=== PATIENT | male | born 1935 | race Caucasian/White ===

== ENCOUNTER → 2016-09-18 11:22 | Outpatient (CLI) | payer MEDICARE, OTHER ==
[2016-01-22 06:22] VITALS: BMI 30.4
[~2016-09-18 11:22] MED LIST: ASPIRIN EC81 M1 PO; HYDROCODON-ACE1 EAC6 PO; LISINOPRIL10 MG PO; PROSCAR5 MG PO; SURFAK240 MG PO; ZOCOR20 MG PO
== END | disposition home or self-care (01) ==
LOC: D.US 11:22
DX: R60.0 Localized edema (principal); M79.662 Pain in left lower leg

== ENCOUNTER 2017-03-26 05:30 | Day surgery (SDC) | payer MEDICARE, OTHER ==
[2017-03-25 08:55] LABS: BASOPHILS 0.3 % (0-2); EOSINOPHILS 2.8 % (0-7); HEMATOCRIT 45.3 % (42.0-54.0); HEMOGLOBIN 15.2 g/dL (13.5-17.5); IMMATURE GRANULOCYTES 0.5 % (0-5); MCH 31.9 pg (26.0-34.0); MCHC 33.6 g/dL (31.0-37.0); MCV 95.2 fL (80.0-100.0); MEAN PLATELET VOLUME 11.1 fL (7.4-10.4); MONOCYTES 9.3 % (2-11); NEUTROPHILS 59.1 % (40-80); PLATELET COUNT 133 10x3/uL (130-400); RBC 4.76 10x6/uL (4.20-6.10); RDW 12.9 % (11.5-14.5); WBC 7.8 10x3/uL (4.8-10.8)
[2017-03-25 09:04] LABS: ANION GAP 11.9 mmol/L (8-16); CALCIUM 8.5 mg/dL (8.5-10.1); CARBON DIOXIDE 29.3 mmol/L (21.0-32.0); CREATININE - SERUM 1.2 mg/dL (0.6-1.3); POTASSIUM - SERUM 4.2 mmol/L (3.5-5.1)
[~2017-03-26] VITALS: Ht 177.8 cm; Wt 85.7 kg
[~2017-03-26 05:30] MED LIST changes: +ELAVIL25 MG PO
[2017-03-26 06:55] VITALS: BP 133/61; Ht 177.8 cm; Wt 85.7 kg
--- NOTE | 2017-03-26 15:14 | OP ---
PATIENT NAME: DACIA MA MEDICAL RECORD: [id number] :36 LOCATION:D.OPS ADMISSION DATE: SURGEON: ALEJANDRO DEAN MD DATE OF OPERATION: 03/26/2017 SURGEON: Alejandro Dean MD. ANESTHESIA: General anesthesia by Liam Valencia CRNA. PREOPERATIVE DIAGNOSEIS: Elevated PSA 9.2 and abnormal digital rectal examination. FINDINGS: A 24 gram prostate, some hypoechoic areas in the right mid prostate. PROCEDURES: Transrectal ultrasound and prostate biopsy. SPECIMENS: Prostate biopsy. ESTIMATED BLOOD LOSS: None. CLINICAL HISTORY: This is an 81-year-old male, who served in [employer]. During the Tet Offensive, he was exposed to Agent Oktaha. Now, he has an elevated PSA of 9.2. On digital rectal examination, there is hard nodule in the right mid prostate. He wants to know if he has prostate cancer. HE IS ALLERGIC TO PENICILLIN. He has been taking Bactrim prophylaxis at home and he took a Fleet enema last night. 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 DESCRIPTION OF PROCEDURE: The patient was given induction of general anesthesia. He was placed in the dorsal lithotomy position. We noticed that he has quite significant candidal skin infection in the perineum and buttock areas. The rectal probe was placed and measurements of the prostate were obtained. Some small hypoechoic areas were seen on the right mid lobe, corresponding to the palpable nodule. The prostate was divided into 6 sectors. We obtained sextant biopsies. These are the right and left apical, mid and base sectors. In each sector, we took at least 3 cores of tissue. This was using a biopsy gun with 21-gauge needle. Once all the cores were obtained, the patient was awakened and brought to the recovery room. I will see the patient next week to review the pathology results with him. TRANSINT:[id number] Voice Confirmation ID: [id number] DOCUMENT ID: [id number] ALEJANDRO DEAN MD at 1514 CC: [id number] DICTATION DATE: 03/26/17915 TAIL EDGER: 03/26/17 1206 [facility] 03/26/17 [place] [address]
== END 2017-03-26 11:00 | disposition home or self-care (01) ==
LOC: D.OPS 05:30 → D.PAN 07:30 → D.OPS 08:00 → D.PAN 08:00 → D.OPS 11:00
PROVIDERS: Anesthesiology
DX: C61 Malignant neoplasm of prostate (principal); B37.9 Candidiasis, unspecified; Z88.0 Allergy status to penicillin; Z01.812 Encounter for preprocedural laboratory examination

== ENCOUNTER → 2017-04-20 10:07 | Outpatient (CLI) | payer MEDICARE, OTHER | END | disposition home or self-care (01) | LOC: D.NM 10:07 | DX: C61 Malignant neoplasm of prostate (principal) ==

== ENCOUNTER 2017-05-12 05:28 | Day surgery (SDC) | payer MEDICARE, OTHER ==
[2017-05-11 11:57] LABS: BASOPHILS 0.3 % (0-2); HEMOGLOBIN 14.3 g/dL (13.5-17.5); IMMATURE GRANULOCYTES 0.2 % (0-5); LYMPHOCYTES 32.7 % (15-50); MEAN PLATELET VOLUME 11.1 fL (7.4-10.4); MONOCYTES 9.6 % (2-11); NEUTROPHILS 54.2 % (40-80); PLATELET COUNT 111 10x3/uL (130-400); RBC 4.47 10x6/uL (4.20-6.10); RDW 12.6 % (11.5-14.5); WBC 6.6 10x3/uL (4.8-10.8)
[2017-05-11 12:09] LABS: APTT 29.2 SECONDS (22.8-39.4); CALC OSMOLALITY 281 mosm/kg (275-300); CALCIUM 8.5 mg/dL (8.5-10.1); CHLORIDE - SERUM 104 mmol/L (98-107); CREATININE - SERUM 0.9 mg/dL (0.6-1.3); GLUCOSE 115 mg/dL (74-106); INR 1.04 (0.85-1.17); POTASSIUM - SERUM 4.2 mmol/L (3.5-5.1); PROTIME 13.5 SECONDS (11.6-15.0); SODIUM 141 mmol/L (136-145); UREA NITROGEN 12 mg/dL (7-18); eGFR NON AFRICAN AMERICAN 86 mL/min (90-120)
[2017-05-12 06:26] VITALS: BP 127/75; BMI 26.4
[2017-05-12] MEDS ORDERED: ULTRAM50 MG PO (09:48)
--- NOTE | 2017-05-12 14:03 | OP ---
PATIENT NAME: DACIA MA MEDICAL RECORD: [id number] :36 LOCATION:JEFF ADMISSION DATE: SURGEON: BOBBY AVENDANO MD DATE OF OPERATION: 05/12/2017 REFERRING PHYSICIAN: Noe Hdez MD PREOPERATIVE DIAGNOSIS: Initial reducible right indirect inguinal hernia without obstruction or gangrene. POSTOPERATIVE DIAGNOSIS: Initial reducible right indirect inguinal hernia without obstruction or gangrene. OPERATION PERFORMED: Anterior repair utilizing Bard polypropylene plug and patch, light. SURGEON: Bobby Avendano MD ANESTHESIA: General with LMA per ADMINISTRATOR OF HOME HEALTH. PREOPERATIVE NOTE: Mr. Ma is a very nice 81-year-old white male patient, who has a highly symptomatic reducible right inguinal hernia on physical examination, most likely an indirect hernia. He is brought to the operating room for a semi-elective repair. DESCRIPTION OF PROCEDURE: Under anesthesia in supine position, the patient was prepped and draped in sterile manner. An oblique incision was made and carried down to the external oblique aponeurosis, which was opened parallel to its fibers through the external inguinal ring. The spermatic cord was mobilized. The floor of the canal was noted to be intact. There was a large indirect inguinal hernia sac with a small cord lipoma. The lipoma was excised and discarded, and the hernia sac dissected from the cord. It was ligated high with a 2-0 Vicryl and amputated. The sac was sent for histopathology and the stump of the sac pushed back into the preperitoneal space. I then inserted a size extra-large Marlex polypropylene mesh plug. This was a light mesh. It was opened up in the preperitoneal space and sutured to the margins of the internal ring with interrupted 3-0 Vicryl. The wound was irrigated with gentamicin solution and infiltrated with 30 cc of 0.25% Marcaine without epinephrine. The mesh patch was then applied to the floor of the canal. It was sutured with interrupted 3-0 Vicryl. It was split to accommodate the cord and created a new internal ring. The cord was replaced in an anatomical position, and the external oblique aponeurosis approximated over it with interrupted 3-0 Vicryl. The Srikanth fascia was closed with interrupted inverted 3-0 Vicryl, and the skin closed with running intracuticular 4-0 Monocryl and Dermabond glue. The wound was then dressed with Maxorb Ag, Tegaderm, and Cavilon skin prep. An ice pack was applied. The patient was awakened and taken to the recovery room. Blood loss was essentially nil during the procedure. All sponges, instruments, and needles were accounted for. No drain was used. The surgical specimen consisted of the hernia sac. Mr. Ma will be discharged home today. If he is unable to void before discharge, he will have a bladder scan and possibly a Sharma catheter insertion. If so, we will plan to send him home with a Sharma and bring him back either to Dr. Hdez's office tomorrow or to my office on for catheter removal. OPERATIVE REPORT [id number] DACIA MA He is given a prescription for Flomax 0.4 mg 1 p.o. daily for 2 weeks and also a prescription for tramadol 50 mg, #20. He can take 1 p.o. every 4 hours p.r.n. pain. He is to resume his usual diet and home medications and is to resume activities as tolerated without arbitrary restrictions. He is encouraged to shower daily and is to wash over the waterproof plastic dressing with soap and water as desired. I will plan to remove that dressing when he returns to see me in my office for his postoperative visit next week. TRANSINT:[id number] Voice Confirmation ID: [id number] DOCUMENT ID: [id number] BOBBY AVENDANO MD at 1403 CC: NOE HDEZ MD [id number] DICTATION DATE: 05/12/17 1013 CLICKING MACHINE OPERATOR: 05/12/17 1047 [facility] [address] [id number]
--- NOTE | 2017-05-12 17:03 | NUR ---
1059 1 ULTRAM 50MG PO FOR PAIN. Willard BOWEN R.N.
--- NOTE | 2017-05-12 17:06 | NUR ---
1200 DRESSED. GIVEN DISCHARGE INFORMATION INCLUDING: RX: ULTRAM 50MG, MED REC.,[facility] OUTPATIENT D/C INSTRUCTIONS, & RTC APPT WITH DR. AVENDANO. PT VOICED UNDERSTANDING. WAITING FOR TRANSPORTATION. Willard BOWEN R.N. [id number] TRANSPORTATION, KAVITHA SANCHEZ, HERE. TO PRIVATE CAR PER [facility] BY Lawrence EMERY PASTER HAT LINING. Willard BOWEN R.N..
== END 2017-05-12 12:35 | disposition home or self-care (01) ==
LOC: D.OPS 05:28 → D.PAN 08:00 → D.OPS 08:00
PROVIDERS: Surgery
DX: K40.90 Unilateral inguinal hernia, without obstruction or gangrene, not specified as recurrent (principal); I10 Essential (primary) hypertension; I49.9 Cardiac arrhythmia, unspecified; Z01.812 Encounter for preprocedural laboratory examination

== ENCOUNTER 2017-05-27 05:30 | Inpatient (IN) | payer MEDICARE, OTHER ==
[2017-05-26 11:23] LABS: BASOPHILS 0.3 % (0-2); EOSINOPHILS 2.9 % (0-7); HEMATOCRIT 41.1 % (42.0-54.0); HEMOGLOBIN 13.7 g/dL (13.5-17.5); IMMATURE GRANULOCYTES 0.3 % (0-5); LYMPHOCYTES 28.7 % (15-50); MCH 31.8 pg (26.0-34.0); MCHC 33.3 g/dL (31.0-37.0); MCV 95.4 fL (80.0-100.0); MEAN PLATELET VOLUME 10.6 fL (7.4-10.4); MONOCYTES 6.5 % (2-11); NEUTROPHILS 61.3 % (40-80); PLATELET COUNT 129 10x3/uL (130-400); RBC 4.31 10x6/uL (4.20-6.10); RDW 12.4 % (11.5-14.5); WBC 6.6 10x3/uL (4.8-10.8)
[2017-05-26 11:33] LABS: CALC OSMOLALITY 281 mosm/kg (275-300); CALCIUM 8.5 mg/dL (8.5-10.1); CARBON DIOXIDE 29.6 mmol/L (21.0-32.0); CHLORIDE - SERUM 106 mmol/L (98-107); CREATININE - SERUM 0.9 mg/dL (0.6-1.3); GLUCOSE 102 mg/dL (74-106); POTASSIUM - SERUM 4.2 mmol/L (3.5-5.1); SODIUM 142 mmol/L (136-145); UREA NITROGEN 11 mg/dL (7-18); eGFR NON AFRICAN AMERICAN 86 mL/min (90-120)
[2017-05-26 11:34] LABS: APTT 28.7 SECONDS (22.8-39.4); INR 1.07 (0.85-1.17); PROTIME 13.8 SECONDS (11.6-15.0)
[2017-05-27] VITALS (14 sets, daily range): BP systolic 97–147; BP diastolic 35–68; BMI 26.4; BMI 26.6
[~2017-05-27 05:30] MED LIST changes: +ULTRAM50 MG PO
[2017-05-27 10:43] LABS: BASOPHILS 0.3 % (0-2); EOSINOPHILS 1.8 % (0-7); IMMATURE GRANULOCYTES 0.1 % (0-5); MCH 32.2 pg (26.0-34.0); MCHC 34.1 g/dL (31.0-37.0); MCV 94.6 fL (80.0-100.0); MEAN PLATELET VOLUME 10.3 fL (7.4-10.4); MONOCYTES 8.1 % (2-11); NEUTROPHILS 61.7 % (40-80); PLATELET COUNT 124 10x3/uL (130-400); RDW 12.4 % (11.5-14.5); WBC 6.8 10x3/uL (4.8-10.8)
[2017-05-27 10:45] LABS: HEMATOCRIT 31.7 % (42.0-54.0); HEMOGLOBIN 10.8 g/dL (13.5-17.5); RBC 3.35 10x6/uL (4.20-6.10)
--- NOTE | 2017-05-27 14:08 | NUR ---
CONSULTED DR LEVI REGARDING DECREASED BLOOD PRESSURE. GIVEN ORDERS TO DRAW A STAT HEMOGLOBIN AND HEMOTOCRIT. ORDER PLACED. LAB CALLED. GIVEN VERBAL ORDERS TO GIVE HESPAN 500ML BOLUS. WILL CONTINUE TO MONITOR.
[2017-05-27 14:15] LABS: HEMATOCRIT 33.5 % (42.0-54.0); HEMOGLOBIN 11.1 g/dL (13.5-17.5)
--- NOTE | 2017-05-27 17:01 | NUR ---
1336 ADMITTED FROMR RECOVERY ROOM AWAKE AND ALERT SKIN WARM AND DRY. BILATERAL LUNG SOUNDS CLEAR ABD DRESSING DRY AND INTACT. LÁZARO DRAIN INTACT COMPRESSED BULB WITH DARK RED DRAINAGE. MARTINEZ PATENT WITH DARK RED DRAINAGE. DENIES ANY PAIN. FEET ARE NUMB CAN BARREL FEEL TOUCH UP TO MID ABD. RESP DEEP AND REGULAR. EPIDURAL INFUSING AT CONTINOUS RATE OF 6CC HOUR WITH 330 ML IN CONTAINER. DRESSING DRY AND INTACT. FEET AND LEGS WARM TO TOUCH. NAPPING WELL . ROCKY LEFT RADIAL DRESSING DRY AND INTACT NO SWELLING OR DRAINAGE. GOOD WAVE FORM ZEROED AND FLUSHED.
--- NOTE | 2017-05-27 18:44 | NUR ---
DRESSING DRY AND INTACT. PIV LEFT ARM DC'D. LR AT 50 ML HOUR INFUSING IN RIJ CENTRAL LINE. ROCKY DRESSING DRY AND INTACT. GOOD WAVE FORM. CLEAR LIQUID TRAY SERVED AT 50% MARTINEZ CATH DRAINAGE DARK RED
--- NOTE | 2017-05-27 19:30 | NUR ---
PT AOX4. RESPIRATIONS EVEN AND UNLABORED. SPO2 96 ON 3L O2 VIA NC. LUNG SOUNDS CLEAR. S1S2 HEARD, PERIPHERAL PULSES PRESENT. ROCKY TO LEFT RADIAL, EXTREMITIY PINK AND WARM. HYPOACTIVE BOWEL SOUNDS IN ALL QUADRANTS. DRSG TO ABDOMEN CDI, LÁZARO DRAIN TO LEFT ABD INTACT WITH BLOODY DRAINAGE PRESENT. EPIDURAL INTACT, NO C/O PAIN AT THIS TIME. PT REPOSITIONED FOR COMFORT. VSS, DENIES NEEDS. CALL LIGHT WITHIN PT REACH. CPOC.
--- NOTE | 2017-05-27 21:40 | NUR ---
NO VISITORS AT THIS TIME. FRESH WATER TO BEDSIDE. VSS, DENIES NEEDS AT THIS TIME. CALL LIGHT WITHIN PT REACH. CPOC.
--- NOTE | 2017-05-27 23:40 | NUR ---
REASSESSMENT COMPLETE, SEE FLOWSHEET FOR ALL FINDINGS. NO ACUTE CHANGES AT THIS TIME. ABD DRSG REMAINS CLEAN AND INTACT. VSS, DENIES PAIN. CALL LIGHT WITHIN PT REACH. CPOC.
[2017-05-28] VITALS (19 sets, daily range): BP systolic 93–139; BP diastolic 29–65
--- NOTE | 2017-05-28 03:33 | NUR ---
REASSESSMENT COMPLETE, SEE FLOWSHEET FOR ALL FINDINGS. NO ACUTE CHANGES AT THIS TIME. VSS, DENIES PAIN. PT REPOSITIONED FOR COMFORT. CALL LIGHT AND BEDSIDE TABLE WITHIN PT REACH. CPOC.
--- NOTE | 2017-05-28 08:48 | NUR ---
AWAKE AND ALERT TURNED TO LEFT SIDE DRESSING DRY AND INTACT DENIES PAIN. ABLE TO MOVE TOES TODAY. STILL HAS SOME NUMBNESS IN LEGS AND FEET. ABD DRESSING DRY AND INTACT LÁZARO DRAIN INTACT BULB COMPRESSED. ROCKY LEFT RAIDAL GOOD WAVE FORM. RIJ TRIPLE LUMEN DRESSING DRY AND INTACT.
--- NOTE | 2017-05-28 09:07 | OP ---
PATIENT NAME: DACIA MA MEDICAL RECORD: [id number] :36 LOCATION:[facility] D.2307 ADMISSION DATE:05/27/17 SURGEON: NOLA DEAN MD DATE OF OPERATION: 05/27/2017 CO-SURGEONS: 1. Nola Dean MD 2. Nola Sanchez MD ANESTHESIA: General anesthesia with an epidural by Dr. Morin and Alcides Velasquez CRNA. OPERATIVE DIAGNOSES: Prostate cancer, PSA 9.2; Violetta's score 4+5 equals 9/10 in all cores. Clinical stage T2c N0 M0. Previous Agent Baraga exposure in [place]. PROCEDURE: Radical retropubic prostatectomy with pelvic lymph node dissection. FINDINGS: Lymph node frozen sections indicated no lymph node metastasis. SPECIMENS: Pelvic lymph nodes, left and right, prostate with the vas deferens and seminal vesicles attached. ESTIMATED BLOOD LOSS: 1850 mL. Two units of packed red blood cells transfused during surgery. CLINICAL HISTORY: This is an 81-year-old man who was referred with an elevated PSA of 9.2. He had served in [employer] with the [employer] and he was exposed to Agent Baraga. He was very worried about the possibility of having cancer. He did have a prostate biopsy performed. All cores were positive for very high-grade prostate cancer, Kennebec score being 4+5. He had a metastatic workup including a chest CT, bone scan and abdominal and pelvic CT scan. These are normal except for some small left lung nodules, which we will continue to observe. 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 Otherwise, he has hypertension and elevated cholesterol, but no history of diabetes, myocardial infarction, stroke, or DVT. He has erectile dysfunction and he is not sexually active. He has good urinary continence. After discussing the options with him including observation, versus radical prostatectomy, versus radiation, he elected to have an open radical prostatectomy. Risks of the procedure were explained to him extensively in the clinic. These include blood loss, impotence, urinary incontinence, possible positive PSA elevation persisting after surgery if margins are positive. There is also the chance that he may have positive pelvic lymph nodes given his high Kennebec score and if the lymph nodes were positive, we would not continue with the surgery. I have arranged for frozen sections to be obtained in the operating room on his pelvic lymph nodes to ascertain this. He understood the risks and he wished to proceed. We had him cross matched for 2 units of packed red blood cells prior to the surgery. Also, in order to help with postoperative pain control, anesthesia is providing him with an epidural. They have also inserted central lines once he was asleep. DESCRIPTION OF PROCEDURE: The patient was given induction of general anesthetic in supine position. Central lines and epidural were given to the patient by anesthesia. He was prepped and draped. An 8 cm incision was marked out, going OPERATIVE REPORT [id number] KEYS,DACIA FLORES cranially from the symphysis pubis in the midline of the abdomen. Incision was made using a #10 blade. We went down through the midline of the rectus fascia with the Bovie. We then bluntly dissected the transversalis fascia with the fingers and entered the space of Retzius. We then put our Bookwalter retractor in, using moistened lap sponges to pad our retractor blades. A bladder retraction blade was also used to hold the bladder back. The patient had a 16-Saudi Arabian Sharma catheter inserted with 20 cc in the balloon. This was used to hold the bladder out of the way. We first performed a pelvic lymph node dissection. The margins of the dissection are anteriorly the external iliac vein and posteriorly the obturator nerve. Distally, it was the circumflex iliac vein and proximally it was the bifurcation of the common iliac into the external and internal iliac veins. Within these borders, we found some rather large lymph nodes. These were bluntly dissected using Macanese forceps and the [email or web address] suction tip. As we came across the lymphatic vessels, these were clipped and then divided with Metzenbaum scissors. We initially sent the right pelvic lymph nodes first to pathology for frozen section. They reported 3 nodes were found and all nodes were negative for cancer of the prostate. We performed the same procedure on the left side, and on the left side one node was found and it was negative for cancer. This allowed us to proceed with the radical prostatectomy. We swept away the pelvic fat over the endopelvic fascia lateral to the prostate. This was incised using the Bovie to allow us to enter the space containing the apex of the prostate. We also used the Bovie to extensively burn away the flat on the anterior surface of the prostate in order to allow exposure of the dorsal vein complex. A back bleeding suture of 0 Vicryl was placed as a [id number]-[id number]-meqkw at the base of the prostate, near the bladder neck, on the dorsal surface. This was to prevent bleeding from the bladder vessels along the dorsal venous complex. The puboprostatic ligaments were identified. We used Metzenbaum scissors to divide the puboprostatic ligaments with the scissors blades hugging the undersurface of the pubic bone. This allowed us to free the dorsal venous complex from the pubic undersurface. At this point, we started to get some extensive venous bleeding. A Irene clamp was placed in the plane between the dorsal venous complex and the anterior surface of the urethra. A 0 silk tie was placed here. This procedure was repeated again to put two 0 silk ties around the dorsal venous complex. We also placed a [id number]-up-xssjr 0 silk suture through the dorsal venous complex to stop most of the venous bleeding. Again, the dorsal venous bleeding accounted for most of the bleeding and even at this point we had an H&H performed and the hemoglobin had dropped from preoperative level of 13.7 to 10.8. Since we had the blood available, I suggested that anesthesia to go ahead and give him the 2 units of packed red blood cells. The reason for this decision is that I could not foresee how much further blood we could lose at that point. Actually, once we got our sutures and ties in the dorsal venous complex, the bleeding did diminish significantly. The Irene clamp was then placed again in the plane between the dorsal venous complex and the anterior surface of the urethra. A 15 blade was used to divide the dorsal venous complex. We could then see the apex of the prostate and the attachment of the urethra. The Marshall clamp was then used to define the plane between the posterior surface of the urethra and the anterior surface of the rectum. This plane was entered in through at the Irene clamp and a quarter inch Mariano drain was used to define the plane of the urethra. A 15 blade was used to incise the urethra very close to the apex of the prostate, but taking care not to encroach onto the prostate. Once the anterior and lateral palacios of the urethra had been divided, we were able to place a Antoinette clamp on the Sharma OPERATIVE REPORT [id number] ANILDACIACANELO matt. The distal portion of the Sharma catheter, distal to the urethral meatus was cut off. The Sharma catheter could then be drawn through and used for traction of the prostate. The rectourethralis muscle was divided using a Metzenbaum scissors. The lateral pedicles were isolated using a right angle clamp and then we would the clip the pedicle and divide on the prostatic side with scissors. In this way, we had the prostate isolated. Finally, an incision was made transversely across Denonvillier's fascia and we were able to identify the vas deferens medially and the seminal vehicles laterally in this plane. We isolated the vas deferens with the right angle clamp and placed a clip on it proximally. The vas was then divided for the vasectomy. We also isolated the seminal vesicles down to the apex where the arterial supply was encountered. The apex of the seminal vesicle was clipped and then the seminal vesicle was divided at this point. Finally, this left the bladder neck in isolation. Using a Bovie and hugging the bladder neck very close to the prostate, but not encroaching upon the prostate, we tried to perform a bladder neck sparing dissection. Once we had completely removed the prostate from a bladder neck, we were able to send the prostate off of the specimen to pathology in formalin. We carefully searched for and identified the ureteric orifices. They were uninjured. We could identify a jet of urine coming out of each ureteric orifice. We then performed a tennis racquet reduction of the bladder neck opening. Starting from posteriorly using a 2-0 Vicryl, we used a running seromuscular suture to reduce the bladder neck down to 1 cm in diameter. The bladder mucosa was everted over the cut edge of the bladder neck and this was performed using simple interrupted 4-0 Vicryl. At this point, we could place a sound into the penis and in the pelvis we could identify the urethral stump. We placed 5 anastomotic sutures. These are of 2-0 Monocryl. They were placed in the 5 and 7 o'clock positions posteriorly and the 2 and 10 o'clock positions anteriorly and finally at the 12 o'clock position anteriorly. All sutures were placed so that they went outside into the urethral lumen and inside out from the bladder to the outside of the bladder. Each of these sutures was marked with a rubber shod instruments, so that we could identify their positions. A 22-Saudi Arabian silicone Sharma catheter was then inserted into the penis and into the bladder. The balloon was inflated with 15 mL of sterile water. We were then able to remove the bladder blade on the Bookwalter retractor. The bladder was then allowed to come down to the urethral stump. The slack was taken of the sutures and we tied the anastomotic sutures down starting from the most anterior one which is the 12 o'clock suture, and working our way to the most posterior ones on each side. Once the sutures were tied down, we did irrigate the Sharma catheter and we noted no leakage of irrigation fluid from the anastomosis. Two weeks ago, the patient had a right inguinal hernia repair by Dr. Pretty. Therefore, we had to place a Feng-Flowers drain through a left lower quadrant stab incision. A #10 flat Feng-Flowers drain was drawn out through the left lower quadrant. We cut the inner part of the drain to make it shorter. It was placed close to, but not at the level of the vesical-urethral anastomosis. A #2 nylon was used as a drain stitch. We then had the sponge and instrument counts, which were correct. The rectus fascia was reapproximated using running looped 0 PDS. The skin was then closed with miranda. Dressings of Telfa and 4 x 4 gauze were placed on the abdominal incision. A drain dressing was applied around the Feng-Flowers drain. The Sharma catheter was taped to the leg. The patient was awakened and brought to the recovery room. I will keep him in the intensive care unit at least for 1 night to monitor his fluid levels. OPERATIVE REPORT [id number] DACIA MA TRANSINT:[id number] Voice Confirmation ID: [id number] DOCUMENT ID: [id number] NOLA DEAN MD at 0907 CC: [id number] DICTATION DATE: 05/27/17 1302 PHYSICIAN PRACTICE ADMINISTRATOR: 05/27/17 1737 ADM IN [facility] [address] [place] [address]
--- NOTE | 2017-05-28 15:22 | NUR ---
ROCKY WALKER'Seun PRESSURE HELD FOR 5 MIN. NO BLEEDING OR DISCOLORATION NOTED AT SITE. PATIENT TOLERATED WELL. CVP LINE REMOVED. RIJ TRIPLE LUMEN SALINE LOCKED. MARTINEZ DRAINING LIGHT PINK URINE. MONITOR SR. DR. DEAN HERE ORDERS FOR REGULAR DIET AND CAN TRANSFER TO FLOOR. EPIDURAL DRESSING DRY AND INTACT DENIES ANY PAIN. CAN FEEL SCD ON LOWER LEGS. MOVES TOES AND FEET WELL. STILL HAS SOME NUMBNESS AND TINGLING IN LEGS. COMPLETE BED BATH GIVEN WITH LINE CHANGE. PATIENT CALLED INFORMED HER OF TRANFERING.
[2017-05-28 15:36] LABS: BASOPHILS 0.2 % (0-2); EOSINOPHILS 0 % (0-7); HEMATOCRIT 31.9 % (42.0-54.0); HEMOGLOBIN 10.4 g/dL (13.5-17.5); IMMATURE GRANULOCYTES 0.1 % (0-5); LYMPHOCYTES 16.4 % (15-50); MCH 30.7 pg (26.0-34.0); MCHC 32.6 g/dL (31.0-37.0); MCV 94.1 fL (80.0-100.0); MEAN PLATELET VOLUME 10.9 fL (7.4-10.4); MONOCYTES 11.7 % (2-11); NEUTROPHILS 71.6 % (40-80); PLATELET COUNT 103 10x3/uL (130-400); RBC 3.39 10x6/uL (4.20-6.10); RDW 14.5 % (11.5-14.5); WBC 8.4 10x3/uL (4.8-10.8)
[2017-05-28 16:00] LABS: CALC OSMOLALITY 277 mosm/kg (275-300); CALCIUM 7.3 mg/dL (8.5-10.1); CARBON DIOXIDE 28.3 mmol/L (21.0-32.0); CHLORIDE - SERUM 106 mmol/L (98-107); CREATININE - SERUM 0.9 mg/dL (0.6-1.3); GLUCOSE 83 mg/dL (74-106); POTASSIUM - SERUM 3.8 mmol/L (3.5-5.1); SODIUM 139 mmol/L (136-145); UREA NITROGEN 15 mg/dL (7-18); eGFR NON AFRICAN AMERICAN 86 mL/min (90-120)
--- NOTE | 2017-05-28 17:15 | NUR ---
REPORT CALLED TO STAR TO TRANSFER TO ROOM 2230 PER BED
--- NOTE | 2017-05-28 17:57 | NUR ---
RECEIVED TO ROOM 2230 FROM ICU VIA . ORIENTED TO ROOM AND CALL LIGHT SYSTEM. CALL LIGHT IN REACH. WILL CONTINUE WITH PLAN OF CARE.
--- NOTE | 2017-05-28 18:48 | NUR ---
STAT LOCK APPLIED TO MARTINEZ CATH ON LEFT LEG. DRSG TO ABDOMEN. SCDs TO BLE. CALL LIGHT IN REACH. WILL CONTINUE WITH PLAN OF CARE.
[2017-05-29] VITALS: BP 110/50
[2017-05-29 04:00] VITALS: BP 110/45
--- NOTE | 2017-05-29 05:00 | NUR ---
PATIENT IS AWAKE, ALERT AND ORIENTED X'S 4. RESPIRATIONS ARE EVEN AND UNLABORED ON 2L/MIN. MARTINEZ CARE COMPLETED USING MARTINEZ CARE WIPES. APPLIED A MILLY MAT ALARM TO PATIENT'S BED. ENCOURAGED PATIENT TO TURN, HE TURNED TO HIS RIGHT SIDE, POSITIONED HIM WITH A PILLOW BEHIND HIS BACK. MILLY MAT ALARM ON. BED IN LOWEST POSITION, CALL LIGHT IN REACH. BED RAILS UP X'S 2. PATIENT DENIES NEEDS.
[2017-05-29 08:50] VITALS: BP 110/48
--- NOTE | 2017-05-29 08:58 | NUR ---
REC'D IN BED AWAKE AND ALERT. RESP EVEN AND UNLABORED WITH NO DISTRESS NOTED OR VOICED. CAN EXPRESS NEEDS AND WANTS. C/O PAIN RATING 3/10 ON PAIN SCALE. ASSESSMENT COMPLETED. C/L IN REACH AT BEDSIDE.
--- NOTE | 2017-05-29 14:27 | NUR ---
Patient Name: DACIA MA Admission Status: Elective Accout number: [id number] Admission Date: 05-27-2017 : 1935 Admission Diagnosis: Attending: FANNY DEAN Current LOS: 2 Anticipated DC Date: 06-01-2017 Planned Disposition: Home Primary Insurance: MEDICARE A & B Discharge Planning Comments: CM MET WITH FAMILY AND PATIENT REGARDING D/C NEEDS AND PLANS. PATIENT LIVES AT HOME WITH HIS (TANO) AND THEIR GRANDDAUGHTER WILL DRIVE HIM HOME AT DISCHARGE. PATIENT STATED HE IS INDEPENDENT WITH HIS CARE AND HAS A WALKER, AND CANE AT HIS HOME. PATIENTS PCP IS DR. HDEZ AND PHARMACY IS [facility] AT THE [facility]. PATIENT IS REFUSING HOME HEALTH AT THIS TIME. CM WILL CONTINUE TO FOLLOW PATIENT WITH D/C NEEDS AND PLANS. PCP DR. KETTY DIAZ AT [facility]- [phone] DANYELL (GRANDDAUGHTER) [phone] TANO () [phone] Funeral Director/Embalmer: Aleida Obregon Is the patient Alert and Oriented? Yes 0 * How many steps to enter\exit or inside your home? 0 0 * PCP DR. HDEZ 0 * Pharmacy [facility] AT [facility] 0 * Preadmission Environment Home with Family 0 * ADLs Independent 0 * Equipment Cane Walker 0 * List name and contact numbers for known caregivers / representatives who currently or will assist patient after discharge: TANO [phone] () DANYELL (GRANDDAUGHTER) [phone] 0 * Community resources currently utilized None 0 * Additional services required to return to the preadmission environment? Yes 0 * Can the patient safely return to the preadmission environment? Yes 0 * Has this patient been hospitalized within the prior 30 days at any hospital? No 0 Grand Total: 0
[2017-05-29 16:45] VITALS: BP 121/54
--- NOTE | 2017-05-29 19:21 | NUR ---
PATIENT IS AWAKE, ALERT AND ORIENTED X'S 4. RESPIRATIONS ARE EVEN AND UNLABORED ON 2L/MIN VIA NASAL CANNULA. HOB 30 DEGREES. PATIENT IS LAYING ON HIS LEFT SIDE POSITIONED WITH A PILLOW. NO SIGNS OF DISTRESS NOTED. MILLY MAT ALARM ON. BED IN LOWEST POSITION, CALL LIGHT IN REACH. MARTINEZ CATHETER DRAINING TO GRAVITY.
[2017-05-29 20:00] VITALS: BP 109/52
--- NOTE | 2017-05-29 21:26 | NUR ---
TURNED PATIENT TO HIS RIGHT SIDE, POSITIONED WITH A PILLOW. PHYSICAL ASSESSMENT COMPLETED AT THIS TIME. REMOVED SCDS, ASSESSED SKIN, NO SKIN IMPAIRMENTS, REAPPLIED SCDS. BILATERAL LEGS ARE ELEVATED ON A PILLOW, HEELS BRIDGED.
--- NOTE | 2017-05-29 23:01 | NUR ---
UPON ENTERING ROOM, PATIENT RESTING QUIETLY WITH EYES CLOSED. NO SIGNS OF DISTRESS NOTED. OXYGEN VIA NASAL CANNULA AT 2L/MIN. WOKE PATIENT UP TO TURN. PATIENT TURNED FROM HIS RIGHT SIDE TO HIS LEFT SIDE. POSITIONED WITH A PILLOW. HE DENIES NEEDS AT THIS TIME. BED IN LOWEST POSITION, CALL LIGHT IN REACH.
[2017-05-30] VITALS: BP 116/53
[2017-05-30 04:00] VITALS: BP 118/55
--- NOTE | 2017-05-30 06:40 | NUR ---
AGRONOMY MANAGER COMPLETED MARTINEZ CARE USING MARTINEZ CARE WIPES
--- NOTE | 2017-05-30 07:30 | NUR ---
SITTING ON BEDSIDE, AT BEDSIDE, DENIES NEEDS, CALL LIGHT IN REACH, MILLY ALARM ON, WILL CONTINUE TO MONITOR
--- NOTE | 2017-05-30 07:35 | NUR ---
RESTING, NO DISTRESS NOTED, DENIES NEEDS, CALL LIGHT IN REACH, HOB 40 DEGREES, WILL CONTINUE TO MONITOR
--- NOTE | 2017-05-30 13:00 | NUR ---
EPIDURAL REMOVED BY DR SLOAN, PT DENIES NEEDS, BED LOWEST POSITION, CALL LIGHT IN REACH
[2017-05-30 13:06] LABS: BASOPHILS 0.2 % (0-2); EOSINOPHILS 1.7 % (0-7); HEMATOCRIT 31.9 % (42.0-54.0); HEMOGLOBIN 10.6 g/dL (13.5-17.5); IMMATURE GRANULOCYTES 0.4 % (0-5); LYMPHOCYTES 12.7 % (15-50); MCH 30.9 pg (26.0-34.0); MCHC 33.2 g/dL (31.0-37.0); MEAN PLATELET VOLUME 10.8 fL (7.4-10.4); PLATELET COUNT 116 10x3/uL (130-400); RBC 3.43 10x6/uL (4.20-6.10); RDW 13.5 % (11.5-14.5); WBC 9.9 10x3/uL (4.8-10.8)
[2017-05-30 13:15] VITALS: BP 99/46
--- NOTE | 2017-05-30 17:40 | NUR ---
PATIENT RESTING IN BED AND DENIES NEEDS AT THIS TIME. BED IN LOWEST POSITION AND CALL LIGHT WITHIN REACH. ENCOURAGED THE PT TO CALL IF HE HAS NEEDS.
--- NOTE | 2017-05-30 19:31 | NUR ---
PATIENT STATED "I AM IN EXTREME PAIN, I NEED SOMETHING NOW." EXPLAINED TO PATIENT THAT IT IS NOT TIME FOR PAIN MEDICATION YET, BUT I WILL PAGE . CALLED THE ANSWERING SERVICE AND SENT A PAGE FOR .
[2017-05-30 20:00] VITALS: BP 167/67
--- NOTE | 2017-05-30 21:25 | NUR ---
PATIENT IS AWAKE, ALERT AND ORIENTED X'S 4. NO SIGNS OF DISTRESS NOTED. PATIENT VERBALIZED THAT HIS PAIN IS BETTER. TURNED PATIENT TO HIS RIGHT SIDE.
[2017-05-31 00:18] VITALS: BP 146/64
[2017-05-31 04:34] VITALS: BP 148/62
--- NOTE | 2017-05-31 07:15 | NUR ---
RECEIVED REPORT. ASSUMED CARE OF PATIENT. RESTING IN BED WITH EYES OPEN. RESP EVEN AND UNLABORED. LÁZARO DRAIN TO LEFT LOWER ABD PATENT. MIDLINE INCISION WITH CLIPS APPROXIMATED. DENIES NEEDS AT THIS TIME. CALL LIGHT WITHIN REACH. NO DISTRESS.
[2017-05-31 08:43] VITALS: BP 131/56
--- NOTE | 2017-05-31 11:01 | NUR ---
MEDICATED FOR PAIN. PATIENT HAD GOT UP WITH PT AND WAS ONLY TO AMBULATE ABOUT 30 FT DUE TO SEVERE PAIN AND HAD TO RETURN TO BED.
[2017-05-31 11:51] VITALS: BP 149/69
--- NOTE | 2017-05-31 13:15 | NUR ---
MEDICATED FOR PAIN AT THIS TIME. NO DISTRESS. PAIN IS MOSTLY AT LÁZARO DRAIN SITE.
--- NOTE | 2017-05-31 14:24 | NUR ---
SITE CARE PROVIDED TO LÁZARO DRAIN. OLD DRY BLOOD REMOVED FROM SITE. PATIENT RESTING IN BED WITH ATTENTION TOWARD TELEVISION AT THIS TIME. NO DISTRESS.
--- NOTE | 2017-05-31 16:19 | NUR ---
MEDICATED FOR PAIN AT THIS TIME. NO DISTRESS.
[2017-05-31 16:49] VITALS: BP 138/85
--- NOTE | 2017-05-31 16:49 | NUR ---
PATIENTS PAIN IS COMING FROM WHERE STITCH IN INTACT TO ABDOMINAL SKIN NEAR LÁZARO DRAIN INSERTION SITE. TRIED TO STABLIZE TUBING BUT PATIENT REFUSED.
--- NOTE | 2017-05-31 18:06 | NUR ---
RESTING IN BED WITH EYES OPEN. CALL LIGHT WITHIN REACH. ATTENTION TOWARD TELEVISION. STITCH TO LOWER ABD CONTINUE TO CAUSE PATIENT PAIN. DENIES THAT NURSE CAN DO ANYTHING FOR HIM AT THIS TIME.
[2017-05-31 20:00] VITALS: BP 116/53
--- NOTE | 2017-05-31 20:00 | NUR ---
RECEIVED REPORT, ASSUMED CARE OF PT. STATES PAIN IS AT A 5/10 BUT REFUSES PAIN MEDICATION AT THIS TIME. RIGHT IJ IV SL. O2 2L VIA NC. SCDS IN USE. CALL LIGHT IN REACH, SRX2, BED LOW. WILL CONTINUE TO MONITOR.
[2017-06-01] VITALS (7 sets, daily range): BP systolic 110–164; BP diastolic 55–74
--- NOTE | 2017-06-01 01:21 | NUR ---
PT RESTING AT THIS TIME WITH EYES CLOSED. RESPIRATIONS EQUAL AND UNLABORED. NO DISTRESS NOTED. CALL LIGHT IN REACH.
--- NOTE | 2017-06-01 04:20 | NUR ---
PRN MORPHINE ADMINISTERED FOR PAIN 03/12. STATES WHEN HE MOVED IT "TUGGED" ON THE LÁZARO DRAIN. SITE CLEAN. CALL LIGHT IN REACH.
--- NOTE | 2017-06-01 09:17 | NUR ---
REC'D IN BED AWAKE AND ALERT. RESP EVEN AND UNLABORED WITN NO DISTRESS NOTED. CAN EXPRESS NEEDS AND WANTS. NO C/O NOTED OR VOICED. ASSESSMENT COMPLETED. C/L IN REACH AT BEDSIDE.
--- NOTE | 2017-06-01 18:51 | NUR ---
RESTING QUIETLY IN BED. DENIES NEEDS. REPORTS GOOD PAIN MANAGEMENT WITH CURRENT REGIMINE. APPETITE FAIR.
--- NOTE | 2017-06-01 19:15 | NUR ---
NOTIFIED BY ELINOR ANDRADE THAT PATIENT C/O 02/09 PAIN. ADMINISTERED MEDS AND COMPLETED ASSESSMENT. PATIENT DENIES OTHER NEEDS AT THIS TIME. BED IN LOWEST POSITION, CALL LIGHT WITHIN REACH, AND BED ALARM ON. ENCOURAGED THE PT TO CALL IF HE HAS NEEDS.
[2017-06-02 04:00] VITALS: BP 140/60
--- NOTE | 2017-06-02 06:43 | NUR ---
NOTIFIED BY STEVEN DAY THAT THE PT HAD DARK BROWN VOMIT ON HIS BED AND IN HIS EMESIS BAG. PATIENT STATED HE IS STILL EXPERIENCING NAUSEA. PATIENT WAS ADMINISTERED ZOFRAN AT APROX 0345. WILL MONITOR FOR FURTHER NAUSEA AND VOMITING.
--- NOTE | 2017-06-02 08:00 | NUR ---
ASSESSMENT PER FLOW SHEET.PT WITHOUT DISTRESS.PT DENIES NEEDS AT PRESENT,BUT IS VERY CONFUSED.FALL PREVENTION IN PLACE WITH MILLY MAT ON AND FUNCTIONING.DOOR OPEN TO MONITOR.
[2017-06-02 08:15] VITALS: BP 146/73
[2017-06-02 11:57] VITALS: BP 97/54
--- NOTE | 2017-06-02 13:10 | NUR ---
NUTRITION F/U CHART REVIEWED. PT VISIT. NURSING NOTE REPORTS EMESIS. NO APPRECIALBLE PO INTAKE BREAKFAST OR LUNCH. NO BM. TO START MOM. RD FOLLOWING
[2017-06-02 16:51] VITALS: BP 116/64
--- NOTE | 2017-06-02 18:43 | NUR ---
VERY CONFUSED THIS AFTERNOON.STATES PEOPLE ARE PLANNING TO SHOOT HIM TONIGHT. HE HAS SAID THERE ARE DOGS AND CATS IN HIS ROOM. HE SAYS PEOPLE ARE TALKING TO HIM THROUGH THE COMPUTER. HE HAS BEEN OUT OF BED AND ALARM SOUNDING. PT SET BACK ON BED AND MILLY MAT ON.HE REFUSES TO LAY DOWN AT THIS MOMENT.DOOR OPEN TO MONITOR.
--- NOTE | 2017-06-02 19:30 | NUR ---
PATIENT IS STANDING UP BESIDE THE BED. BED ALARM GOING OFF. WENT IN ROOM. ASKED PATIENT TO SIT DOWN. HE SAT DOWN ON THE SIDE OF THE BED. HE STATED "THERE IS A BEAM OF LIGHT COMING THROUGH THE WALL, AND WHEN I WANT TO I CAN SEE INTO THAT ROOM BEHIND THE WALL. THEY ARE PLOTTING TO KILL ME TONIGHT. AND I WANT YOU TO UNDERSTAND THAT IF THEY KILL ME OR ATTEMPT TO SHOOT AT ME, IT IS GOING TO BE A BAD DEAL FOR THIS ORGANIZATION." TRIED TO EXPLAIN TO PATIENT THAT IT SEEMS HE IS HAVING HALLUCINATIONS. HE STATED "I AM NOT! YOU NEED TO BELIEVE ME." ASKED PATIENT TO PLEASE NOT GET UP WITHOUT ASSISTANCE FROM STAFF. HE STATED "WELL, ALRIGHT I WON'T." ASKED PATIENT QUESTIONS TO ASSESS ORIENTATION, HE ANSWERED ALL QUESTIONS APPROPRIATELY, INCLUDING THE NAME OF THE SURGERY HE HAD, THE LOCATION OF THE HOSPITAL AND THE YEAR.
--- NOTE | 2017-06-02 20:03 | NUR ---
PATIENT IS SITTING UP ON THE SIDE OF THE BED, LOOKING AT THE WALL TALKING IN AN ANGERY VOICE. NO ONE IS IN ROOM WITH HIM. DOOR IS OPEN. MILLY ALARM ON.
--- NOTE | 2017-06-02 20:09 | NUR ---
PATIENT YELLED "RORY! DON'T DO IT!"
--- NOTE | 2017-06-02 20:17 | NUR ---
PATIENT IS ON THE PHONE WITH HIS . PAGED
[2017-06-02 21:30] VITALS: BP 122/71
[2017-06-02 21:51] LABS: BASOPHILS 0.1 % (0-2); EOSINOPHILS 0.1 % (0-7); HEMATOCRIT 39.4 % (42.0-54.0); HEMOGLOBIN 13.2 g/dL (13.5-17.5); IMMATURE GRANULOCYTES 1.2 % (0-5); LYMPHOCYTES 5.7 % (15-50); MCH 31.1 pg (26.0-34.0); MCHC 33.5 g/dL (31.0-37.0); MCV 92.7 fL (80.0-100.0); MEAN PLATELET VOLUME 10.4 fL (7.4-10.4); MONOCYTES 12.9 % (2-11); RBC 4.25 10x6/uL (4.20-6.10); RDW 13.3 % (11.5-14.5); WBC 14.4 10x3/uL (4.8-10.8)
[2017-06-02 21:52] LABS: PLATELET COUNT 187 10x3/uL (130-400)
[2017-06-02 21:57] LABS: CALC OSMOLALITY 284 mosm/kg (275-300); CALCIUM 8.6 mg/dL (8.5-10.1); CARBON DIOXIDE 27.3 mmol/L (21.0-32.0); CHLORIDE - SERUM 101 mmol/L (98-107); POTASSIUM - SERUM 3.9 mmol/L (3.5-5.1); SODIUM 139 mmol/L (136-145); UREA NITROGEN 25 mg/dL (7-18); eGFR NON AFRICAN AMERICAN 76 mL/min (90-120)
[2017-06-02 22:03] LABS: GLUCOSE 154 mg/dL (74-106)
[2017-06-03] VITALS (7 sets, daily range): BP systolic 122–139; BP diastolic 50–69
--- NOTE | 2017-06-03 00:25 | NUR ---
PATIENT IS TALKING, LOOKING TOWARD HIS RIGHT SIDE. HE IS TALKING ABOUT HIS LIFE EXPERIENCES, HE IS CRYING, HE IS PAUSING AND RESPONDING THOUGH SOMEONE ELSE IS TALKING, HE STATED "YEAH I CAN HEAR YOU FINE." HE SAID "GOODBYE, IT WAS SO NICE TO TALK TO YOU." THEN HE REACHED HIS ARMS OUT LIKE HE WAS HUGGING SOMEONE. HE IS LAYING IN BED. HE DENIES NEEDS AT THIS TIME. BED IN LOWEST POSITION, CALL LIGHT IN REACH. BED RAILS UP X'S 2.
[2017-06-03 00:36] LABS: APPEARANCE CLOUDY (CLEAR); BILIRUBIN NEGATIVE (NEGATIVE); COLOR DK YELLOW (YELLOW); GLUCOSE NEGATIVE (NEGATIVE); KETONE NEGATIVE (NEGATIVE); NITRITE POSITIVE (NEGATIVE); PROTEIN 2+ mg/dL (NEGATIVE); UROBILINOGEN NORMAL (NORMAL)
[2017-06-03 00:38] LABS: EPITHELIAL CELLS 0-5 /hpf (0-5); RED CELLS - URINE 25-50 /hpf (0-5)
[2017-06-03 00:39] LABS: BACTERIA MODERATE /hpf (NONE SEEN); MUCUS <1+ /lpf (NONE SEEN)
--- NOTE | 2017-06-03 03:18 | NUR ---
CHANGED CVL DRESSING. PATIENT CONTINUING TO TALK TO PEOPLE WHO ARE NOT THERE, ALSO SHAKING HANDS AND KISSING PEOPLE WHO ARE NOT THERE. PATIENT IS CRYING, TALKING ABOUT THE WAR. PATIENT ALLOWED ME TO CHANGE THE CVL DRESSING, HE COOPERATED. HE DENIES NEEDS. BED IN LOWEST POSITION, CALL LIGHT IN REACH. BED RAILS UP X'S 2. MILLY ALARM ON.
--- NOTE | 2017-06-03 05:00 | NUR ---
MARTINEZ CARE COMPLETED USING MARTINEZ CARE WIPES.
--- NOTE | 2017-06-03 08:00 | NUR ---
PT AOX1 SELF PT DENIES NEEDS AT THIS TIME IV TO LEFT IJ PATENT AND INTACT AT THIS TIME SRX2 BED AT LOWEST SETTINGS CALL LIGHT WITHIN REACH WILL CONTINUE TO MONITOR
--- NOTE | 2017-06-03 21:22 | NUR ---
REC'D LYING IN BED. ALERT AND ORIENTED TO X0. DENIED PAIN AT THIS TIME. COULD NOT REORIENT TO TIME, PERSON, PLACE, OR SITUATION. WILL CONT TO TRY THROUGHOUT THE NIGHT. DENIED NEEDS AT THIS TIME. INSTRUCTED TO CALL IF NEEDED ANYTHING. NO DISTRESS NOTED. MARTINEZ STILL IN PLACE AT THIS TIME. BED LOW, LOCKED, CALL LIGHT IN REACH, ALARM ON.
--- NOTE | 2017-06-03 23:47 | NUR ---
SON IN LAW CAME TO VISIT AND WAS WANTING ME TO CALL THE DOCTOR TO GIVE HIM SOMETHING FOR SLEEP. HAS HALDOL BID NEEDED. GAVE HIM ONE. TALKED TO STEVEN ARRIETA AND TOLD ME TO PASS ONTO DAY SHIFT BECAUSE HE IS RESTING RIGHT NOW. WAS HESITATE ABOUT THE SLEEP MEDS WITH THE HALLUCINATIONS HE IS HAVING.
[2017-06-04] VITALS: BP 140/62
--- NOTE | 2017-06-04 01:00 | NUR ---
PT RESTING QUIETLY AT THIS TIME. WATCHING TV, DENIES ANY PAIN OR OTHER NEEDS. MARTINEZ CATHETER TO GRAVITY DRAINAGE. BED ALARM ON, CALL LIGHT IN REACH.
[2017-06-04 04:00] VITALS: BP 107/54
--- NOTE | 2017-06-04 07:07 | NUR ---
REPORT RECEIVED, ASSUMED CARE OF PT. RESTING, EASILY AROUSED, NO NEEDS VOICED AT THIS TIME. R IJ SALINE LOCKED, DRSG C/D/I. MARTINEZ CATHETER IN PLACE, SECURED TO LEG WITH STAT-LOCK. BED IN LOWEST POSITION, SIDE RAILS UP X 2, CALL LIGHT WITHIN REACH.
[2017-06-04 08:16] VITALS: BP 123/59
[2017-06-04 12:33] VITALS: BP 132/58
[2017-06-04 15:35] VITALS: BP 137/58
--- NOTE | 2017-06-04 19:43 | NUR ---
RESTING IN BED WITH EYES CLOSED. NO S/S OF DISTRESS OBSERVED. EASILY AROUSES WITH TOUCH. HOLY CROSS AND NO WEARING HEARING AIDES. ABLE TO HEAR IF YOU GET CLOSE AND SPEAK DIRECTLY IN HIS EAR. ANSWERS APPROPRIATLY. DENIES ANY PAIN. F/C INTACT AND DRAINING CLEAR STRAW COLOR URINE DRAINING TO BSD SYSTEM. IV TO R IJ IMTACT AND PATENT . DRESSING CLEAN, DRY AND INTACT. ABD INCISION BELOW UMBILICA WITH JOSE FRANCISCO INTACT. LARGE BRUISE TO THE RIGHT SIDE OF THE INCISION AND DRESSING TO LEFT SIDE OF INCISION. DRESSING CLEAN, DRY AND INTACT. WILL BE NPO AFTER MN.
[2017-06-04 20:00] VITALS: BP 118/61
[2017-06-05] VITALS: BP 141/57
[2017-06-05 04:00] VITALS: BP 118/56
[2017-06-05 07:28] LABS: CALC OSMOLALITY 281 mosm/kg (275-300); CALCIUM 7.6 mg/dL (8.5-10.1); CARBON DIOXIDE 26.6 mmol/L (21.0-32.0); CHLORIDE - SERUM 105 mmol/L (98-107); CREATININE - SERUM 0.7 mg/dL (0.6-1.3); POTASSIUM - SERUM 3.2 mmol/L (3.5-5.1); SODIUM 140 mmol/L (136-145); UREA NITROGEN 20 mg/dL (7-18); eGFR NON AFRICAN AMERICAN > 90 mL/min (90-120)
[2017-06-05 07:29] LABS: GLUCOSE 97 mg/dL (74-106)
[2017-06-05 08:00] VITALS: BP 119/53
[2017-06-05 08:28] LABS: BASOPHILS 0.3 % (0-2); EOSINOPHILS 4.5 % (0-7); HEMATOCRIT 33.9 % (42.0-54.0); HEMOGLOBIN 11.2 g/dL (13.5-17.5); LYMPHOCYTES 19.4 % (15-50); MCH 30.7 pg (26.0-34.0); MCV 92.9 fL (80.0-100.0); MEAN PLATELET VOLUME 10.3 fL (7.4-10.4); MONOCYTES 11.2 % (2-11); NEUTROPHILS 63.6 % (40-80); PLATELET COUNT 155 10x3/uL (130-400); RBC 3.65 10x6/uL (4.20-6.10); RDW 13.1 % (11.5-14.5); WBC 9.2 10x3/uL (4.8-10.8)
--- NOTE | 2017-06-05 10:04 | OP ---
PATIENT NAME: DACIA MA MEDICAL RECORD: [id number] :36 LOCATION:[id number] ADMISSION DATE:05/27/17 SURGEON: NOLA ROBLEDO MD DATE OF OPERATION: 05/27/2017 This is a co-surgeon note. Please see Dr. Cook's operative note. I was present for the entire operation from the initial skin incision through the final closure. My involvement in the operation included, but was not limited to skin incision, dissection down to the anterior fascia, entry into the preperitoneal space. There was a small rent in the peritoneum, which I closed with a running 3-0 Vicryl. Some blunt dissection in the prevesicular space. Mobilization of the bladder. Ligation of the dorsal veins over the prostate with #1 Vicryls. Lateral dissection of the prostate and the connective tissues to seminal vesicles with metallic clips. Dissection in the obturator fossas and retrieval of nodes bilaterally. At no time was there any damage to the obturator nerve. The vascular pedicles to the lymph nodes were clipped with metallic clips. Irrigation and aspiration. Further mobilization of the prostate gland through the use of ventral sutures underneath the pubic symphysis. Assistance with division of the bladder neck. Assistance with division of the urethra. I placed through the anastomotic sutures between the bladder and the urethra after assisting with the tennis racquet closure of the bladder tying down the Monocryl sutures approximating the bladder to the urethra. Assistance with placement of the drain. Assistance with closure of the midline fascia and then placement of the metallic clips. The complexity of the operation necessitated the presence of 2 attending surgeons. TRANSINT:[id number] Voice Confirmation ID: [id number] DOCUMENT ID: [id number] NOLA ROBLEDO MD at 1004 CC: [id number] DICTATION DATE: 05/27/17 1302 SHEET ROCK FINISHER: 05/27/17 1330 ADM IN [facility] [address] [id number]
[2017-06-05 12:29] VITALS: BP 118/55
[2017-06-05 14:43] VITALS: BP 134/59
--- NOTE | 2017-06-05 14:44 | NUR ---
PT RETURNED TO FLOOR FROM RECOVERY. VSS.
[2017-06-05 20:00] VITALS: BP 115/50
[2017-06-06] VITALS: BP 122/59
[2017-06-06 04:00] VITALS: BP 120/62
--- NOTE | 2017-06-06 07:43 | NUR ---
PT LYING IN BED WITH EYES CLOSED, EVEN RISE AND FALL OF CHEST NO SIGNS OF DISTRESS, CONTINUE WITH PLAN OF CARE
[2017-06-06 09:38] VITALS: BP 125/55
--- NOTE | 2017-06-06 11:27 | NUR ---
PT REQUESTED PAIN MEDICINE, STATED PAIN IS AT 6 IN LOWER ABDOMEN, ADMIN PRN MED. NO OTHER NEEDS AT THIS TIME, CONTINUE WITH CARE PLAN
--- NOTE | 2017-06-06 11:31 | NUR ---
6098 CM RECEIVED A TELEPHONE FROM APOLLO, PATIENT'S STEP DAUGHTER. HIS WAS AT HER SIDE. SHE IS CONCERNED THAT PATIENT DECLINED HOME HEALTH ON INITIAL CM ASSESSMENT. HE HAS DECLINED SECONDARY TO AN INFECTION. SHE WOULD LIKE CM TO REASSESS FOR H/H AND/ OR SKILLED SEVICES. PATIENT HAS BEEN ON HOLD WITH PHYSICAL THERAPY SECONDARY TO FALL AND PROCEDURE. THE DAUGHTER REQUEST THAT PT REVISIT. CM SPOKE WITH DALJIT. THE PATIENT IS ON THE LIST FOR THERAPY TODAY. CM TO FOLLOW TO ASSES NEEDS AT DISCHARGE.
[2017-06-06 11:52] VITALS: BP 131/55
--- NOTE | 2017-06-06 12:10 | OP ---
PATIENT NAME: DACIA MA MEDICAL RECORD: [id number] :36 LOCATION:[id number] ADMISSION DATE:05/27/17 SURGEON: ALEJANDRO DEAN MD DATE OF OPERATION: 06/05/2017 SURGEON: Alejandro Dean MD ANESTHESIA: MAC by Rod Gross CRNA PREOPERATIVE DIAGNOSES: Urinary tract infection, Gram-positive bacteremia post-radical retropubic prostatectomy. FINDINGS: Intact external urinary sphincter, open bladder neck anastomosis, fluoroscopy used to verify that the guidewire was in the bladder. PROCEDURE: Cystoscopy and Sharma catheter exchange. COMPLICATIONS: None. ESTIMATED BLOOD LOSS: None. CLINICAL HISTORY: This is an 81-year-old male, who 9 days ago had a radical retropubic prostatectomy performed by myself and Dr. Sanchez. He was still in the hospital on postoperative day #7, waiting for a bowel movement to occur when he suddenly developed confusion and delirium. Cultures of blood and urine grew Gram-positive cocci. Dr. Wright has seen the patient and he is currently on IV vancomycin. The blood is growing Staph epidermidis, which is sensitive to most antibiotics, but resistant to clindamycin. THE PATIENT IS ALLERGIC TO PENICILLIN. Since the patient is already on IV antibiotics on the floor, we are not going to give him any further antibiotics here in the OR. The contaminated catheter needs to be removed and changed over to a brand new one. Because of the urethra to bladder neck anastomosis is still fresh, he needs to have a catheter in for another 2 weeks. We will be doing this under direct vision. DESCRIPTION OF PROCEDURE: The patient was given IV sedation. He was then placed in the dorsal lithotomy position and prepped and draped. The old Sharma catheter was removed. Uro-Jet lidocaine jelly was inserted into the urethra. A 21-Argentine cystoscope with 30-degree lens was used for visualization. The penile urethra was completely normal with no strictures. The external urinary sphincter was seen to be intact. I gently went past the external urinary sphincter and then saw the bladder neck anastomosis which is still open and patent. I can see our anastomotic sutures still in place. The bladder neck was visible. I gently inserted a guidewire through our urethrovesical anastomosis. In order to be sure that the guidewire was in the bladder, we performed fluoroscopy and indeed the guidewire was coiled up along the contour of the dome of the bladder. This gave me enough confidence to proceed with placement of a Councill tip 16-Argentine Sharma catheter over the wire. Once the catheter was fully inserted up to the hub, the balloon was inflated with 10 cc of sterile water. At this point, the catheter was withdrawn slowly and we could see irrigation fluid draining out from the bladder. The wire was then entirely removed. The Sharma catheter was put to a new drainage bag. If the patient does well, he will probably go home tomorrow with oral antibiotics for the next 2 weeks. TRANSINT:[id number] Voice Confirmation ID: [id number] DOCUMENT ID: [id number] OPERATIVE REPORT [id number] DACIA MA ROBERT S MD at 1210 CC: [id number] DICTATION DATE: 06/05/171401 DENSITOMETER READER: 06/05/17 1459 ADM IN [facility] [address] [id number]
[2017-06-06 16:41] VITALS: BP 130/56
[2017-06-06 20:00] VITALS: BP 115/50
--- NOTE | 2017-06-06 21:30 | NUR ---
UPON ASSESSMENT PT'S ABDOMINAL DRESSING WAS SOILED. I APPLIED FRESH 4X4'S WITH TAPE.
[2017-06-07] VITALS: BP 110/59; BP 118/66
--- NOTE | 2017-06-07 00:27 | NUR ---
PATIENT RESTING IN BED AND DENIES NEEDS AT THIS TIME. PATIENT STATES HIS PAIN "IS OK AT THIS TIME" BED IN LOWEST POSITION, CALL LIGHT WITHIN REACH, AND BED ALARM ON. ENCOURAGED THE PT TO CALL IF HE HAS NEEDS.
--- NOTE | 2017-06-07 07:42 | NUR ---
AM ROUNDS - PT IS IN BED AND APPEARS TO BE SLEEPING AT THIS TIME WITH EQUAL AND NON LABORED BREATHING. RIGHT IJ, NS AT KVO. SCD ARE ON AT THIS TIME. BED AT LOWEST POSITION. CALL GREEN IN USE/REACH. SIDE RAILS UP X2. WILL CONTINUE TO MONITOR. JUAN DATED FOR 06/06
[2017-06-07 09:02] VITALS: BP 133/57
--- NOTE | 2017-06-07 11:40 | NUR ---
PT SITTING UP IN THE CHAIR. STATES HE WOULD LIKE TO GET BACK INTO THE BED AFTER LUNCH. WILL CONTINUE TO MONITOR
[2017-06-07 12:19] VITALS: BP 102/52
[2017-06-07 16:42] VITALS: BP 104/45
[2017-06-07 20:00] VITALS: BP 121/62
--- NOTE | 2017-06-07 21:00 | NUR ---
PT RESTING IN BED AND DENIES NEEDS AT THIS TIME. BED IN LOWEST POSITION, CALL LIGHT WITHIN REACH, AND BED ALARM ON. ENCOURAGED THE PT TO CALL IF HE HAS NEEDS.
[2017-06-08 04:00] VITALS: BP 131/57
--- NOTE | 2017-06-08 08:08 | NUR ---
PT RESTING IN BED, ASSESSMENT COMPLETE. DRESSING CHANGED TO ABD. MIN AMOUNT DRAINAGE NOTED. PT DENIES NEEDS AT THIS TIME. WCTM.
[2017-06-08 08:28] VITALS: BP 133/57
--- NOTE | 2017-06-08 09:50 | NUR ---
CM REASSESSMENT NOTE: PATIENT IS DISCHARGING HOME TODAY WITH [facility]. JENIFFER HAS BEEN SIGNED/ GRANDDAUGHTER (DANYELL) IS DRIVING PATIENT HOME. INFORMATION HAS BEEN GIVEN FOR IN HOME HELP TO PATIENT. IMM SERVED TODAY
--- NOTE | 2017-06-08 11:07 | NUR ---
PT RT IJ DC'D. CATH INTACT. PT TOLERATED WELL. PRESSURE DRESSING APPLIED. WCTM.
--- NOTE | 2017-06-08 13:45 | NUR ---
PT DC'D HOME WITH [facility] VIA WHEELCHAIR.
[2017-06-10 15:25] LABS: AEROBE ID Final report (())
== END 2017-06-08 14:38 | disposition home health service (06) | DRG 708 ==
LOC: D.MS 05:30 → D.ICU 05:30 → D.SDCHOLD 05:30 → D.ICU 13:28 → EDSTATUS 13:30 → D.PAN 13:30 → D.OPS 13:30 → D.SDCHOLD 13:30 → D.MS 05-28 17:47
PROVIDERS: Anesthesiology; Student in an Organized Health Care Education/Training Program; ADMIT Urology
PROC: 07BC0ZZ Excision of Pelvis Lymphatic, Open Approach (ICD-10-PCS; 2017-05-27)
PROC: 0VT00ZZ Resection of Prostate, Open Approach (ICD-10-PCS; principal; 2017-05-27 08:00)
DX: C61 Malignant neoplasm of prostate (principal); T83.518A Infection and inflammatory reaction due to other urinary catheter, initial encounter; I10 Essential (primary) hypertension; N52.9 Male erectile dysfunction, unspecified; R31.9 Hematuria, unspecified; Z77.098 Contact with and (suspected) exposure to other hazardous, chiefly nonmedicinal, chemicals

== ENCOUNTER → 2017-06-10 09:15 | Outpatient (CLI) | payer MEDICARE, OTHER ==
[2017-05-27 15:24] VITALS: BMI 26.6
[~2017-06-10 09:15] MED LIST changes: +HYDROCODON-ACE1 EAC7 PO; +LEVAQUIN500 MG PO; +VIBRAMYCIN 100100 MG PO
== END | disposition home or self-care (01) ==
LOC: D.CT 09:15
DX: I89.8 Other specified noninfective disorders of lymphatic vessels and lymph nodes (principal)

== ENCOUNTER 2017-06-11 11:53 | Inpatient (IN) | payer MEDICARE, OTHER ==
[~2017-06-11] VITALS: Ht 177.8 cm; Wt 83.5 kg
[~2017-06-11 11:53] MED LIST changes: -HYDROCODON-ACE1 EAC7 PO; -LEVAQUIN500 MG PO; -VIBRAMYCIN 100100 MG PO
[2017-06-11] MEDS ORDERED: VIBRAMYCIN 100100 MG PO (13:26)
[2017-06-11] MEDS ORDERED: HYDROCODON-ACE1 EAC7 PO (13:27)
[2017-06-11 13:29] VITALS: BP 128/64; BMI 26.4
[2017-06-11 14:02] LABS: BASOPHILS 0.4 % (0-2); EOSINOPHILS 1.1 % (0-7); HEMATOCRIT 34.6 % (42.0-54.0); HEMOGLOBIN 11.6 g/dL (13.5-17.5); IMMATURE GRANULOCYTES 0.7 % (0-5); MCH 30.9 pg (26.0-34.0); MCHC 33.5 g/dL (31.0-37.0); MEAN PLATELET VOLUME 9.8 fL (7.4-10.4); MONOCYTES 16.4 % (2-11); NEUTROPHILS 56.4 % (40-80); PLATELET COUNT 172 10x3/uL (130-400); RBC 3.76 10x6/uL (4.20-6.10); RDW 13.3 % (11.5-14.5); WBC 5.4 10x3/uL (4.8-10.8)
[2017-06-11 14:11] LABS: CALC OSMOLALITY 275 mosm/kg (275-300); CALCIUM 8.4 mg/dL (8.5-10.1); CARBON DIOXIDE 27.8 mmol/L (21.0-32.0); CHLORIDE - SERUM 102 mmol/L (98-107); CREATININE - SERUM 0.6 mg/dL (0.6-1.3); GLUCOSE 110 mg/dL (74-106); POTASSIUM - SERUM 4.8 mmol/L (3.5-5.1); SODIUM 138 mmol/L (136-145); UREA NITROGEN 9 mg/dL (7-18); eGFR NON AFRICAN AMERICAN > 90 mL/min (90-120)
--- NOTE | 2017-06-11 19:35 | NUR ---
SLEEPING, AROUSES TO VOICE EASILY, CALL LIGHT IN REACH, DENIES NEEDS, BE DLOWEST POSITION, WOUND VAC SEALED, NO DISTRESS NOTED, WILL CONTINUE TO MONITOR
[2017-06-11 20:00] VITALS: BP 143/75
[2017-06-12] VITALS (7 sets, daily range): BP systolic 105–144; BP diastolic 53–75; Ht 177.8 cm; Wt 83.5 kg
--- NOTE | 2017-06-12 03:00 | NUR ---
PT RESTING QUIETLY, EYES CLOSED. RESP EVEN, UNLABORED. NO DISTRESS NOTED. CONTINUE BIOFUELS RESEARCH SCIENTIST'S PLAN OF CARE.
--- NOTE | 2017-06-12 04:40 | NUR ---
PT STATES THE 2 NORCO HAVE NOT TOUCHED HIS PAIN, CALLED DR DEAN HE ORDERED 2MG MORPHINE Q2H PRN
--- NOTE | 2017-06-12 06:30 | NUR ---
A&O, STATES MORPHINE HELPED A LOT WITH PAIN, DENIES NEEDS,
[2017-06-12 06:47] LABS: BASOPHILS 0.3 % (0-2); EOSINOPHILS 0.3 % (0-7); HEMATOCRIT 34.4 % (42.0-54.0); HEMOGLOBIN 11.4 g/dL (13.5-17.5); IMMATURE GRANULOCYTES 0.4 % (0-5); LYMPHOCYTES 12.4 % (15-50); MCH 30.6 pg (26.0-34.0); MCHC 33.1 g/dL (31.0-37.0); MCV 92.2 fL (80.0-100.0); MEAN PLATELET VOLUME 10.3 fL (7.4-10.4); MONOCYTES 13.7 % (2-11); NEUTROPHILS 72.9 % (40-80); PLATELET COUNT 172 10x3/uL (130-400); RBC 3.73 10x6/uL (4.20-6.10); RDW 13.1 % (11.5-14.5)
--- NOTE | 2017-06-12 07:00 | NUR ---
REPORT RECIEVED ASSUMED CARE. PATIENT IN BED WITH IV INTACT. NO COMPLAINTS AT THIS TIME. CALL LIGHT WITHIN REACH.
[2017-06-12 07:13] LABS: ALBUMIN 2.6 g/dL (3.4-5.0); ALKALINE PHOSPHATASE 74 U/L (46-116); ALT (SGPT) 26 U/L (10-68); BILIRUBIN - TOTAL 0.66 mg/dL (0.2-1.3); CALC OSMOLALITY 269 mosm/kg (275-300); CALCIUM 7.8 mg/dL (8.5-10.1); CARBON DIOXIDE 24.5 mmol/L (21.0-32.0); CHLORIDE - SERUM 102 mmol/L (98-107); CREATININE - SERUM 0.6 mg/dL (0.6-1.3); GLUCOSE 100 mg/dL (74-106); MAGNESIUM - SERUM 1.8 mg/dL (1.8-2.4); PHOSPHOROUS 3.9 mg/dL (2.5-4.9); POTASSIUM - SERUM 4.2 mmol/L (3.5-5.1); PROTEIN - SERUM 5.8 g/dL (6.4-8.2); SODIUM 136 mmol/L (136-145); UREA NITROGEN 6 mg/dL (7-18); eGFR NON AFRICAN AMERICAN > 90 mL/min (90-120)
[2017-06-12 07:20] LABS: WBC 6.8 10x3/uL (4.8-10.8)
--- NOTE | 2017-06-12 11:16 | NUR ---
Late Entry 0900 Patient has wound vac postoperatively. Plan is for him to be discharged to home with home health for wound vac dressing changes. He is presently on service with [facility]. TC to [place] to confirm status. Patient is active on service. CM faxed md order and operative report to [phone]. 1039- Wound vac ordered. Await completion of request. 1100 DR Cook spoke with CM. The patient is having pain management issues. Plan for weekend discharge.
--- NOTE | 2017-06-12 16:56 | NUR ---
LATE ENTRY 1600 DR ROBLEDO CAME TO UNIT FROM SURGERY TO SIGN WOUND VAC FORM. CM FAXED SIGNED ORDER TO [facility] [phone]. AWAIT RESPONSE.
--- NOTE | 2017-06-12 18:55 | NUR ---
PATIENT SITTING UP IN BED WITH IV INTACT. NO COMPLAINTS OR SIGNS OF DISTRESS. CALL LIGHT WITHIN REACH.
[2017-06-13] VITALS: BP 120/55
[2017-06-13 04:00] VITALS: BP 128/75
--- NOTE | 2017-06-13 05:15 | NUR ---
MARTINEZ CARE COMPLETED USING MARTINEZ CARE WIPES. PATIENT REQUESTED A PAIN PILL. ADMINISTERED 2 NORCO-5 TABS PER ORDER. PATIENT IS ALERT AND ORIENTED. HE IS ASKING QUESTIONS ABOUT THE WOUND VAC, ANSWERED HIS QUESTIONS. HE DENIES ANY NEEDS AT THIS TIME.
--- NOTE | 2017-06-13 07:05 | NUR ---
REPORT RECEIVED, ASSUMED CARE OF PT. RESTING WITH EYES SHUT, EASILY AROUSED. L HAND IV INFUSING ORDERED, DRSG C/D/I. TALAT CATHETER IN PLACE. MIDLINE WOUND VAC IN PLACE. L LÁZARO ABD LÁZARO DRAIN IN PLACE. NO NEEDS VOICED AT THIS TIME. BED IN LOWEST POSITION, SIDE RAILS UP X 2, CALL LIGHT WITHIN REACH.
[2017-06-13 09:20] VITALS: BP 111/59
[2017-06-13 13:06] VITALS: BP 131/61
--- NOTE | 2017-06-13 16:53 | NUR ---
1600 [employer] website notes performance issues possible Tuesday 06/12- Thursday06/14/17. Expect service to return Thursday 2200 PRACTICE ADVISOR. TC to [facility] [phone]. Spoke with Tim. Note at 1007 today states wound vac on hold for clinical review. Transferred to [facility]. She states additional clinical documentation is required. Clinical team will not be available until Thursday. CM spoke with her regarding documentation issue. CM faxed discharge summary and previous surgery reports to [phone]. CM to call [employer] in the AM at [phone].
[2017-06-13 16:55] VITALS: BP 131/65
--- NOTE | 2017-06-13 19:25 | NUR ---
PATIENT IS AWAKE, ALERT AND ORIENTED X'S 4. RESPIRATIONS ARE EVEN AND UNLABORED ON ROOM AIR. PATIENT REQUESTED PAIN MEDICATION, HE RATED HIS PAIN A 7/10. ADMINSITERED 2 NORCO-5 TABLETS PER ORDER. BROUGHT PATIENT A FRESH CUP OF ICE WATER. ENCOURAGED PATIENT TO TURN EVERY 2 HOURS. HE VERBALIZED UNDERSTANDING AND NEEDS. HE STATED HE CAN TURN INDEPENDENTLY, AND HE STATED HE WILL TURN LATER. BED IN LOWEST POSITION, CALL LIGHT IN REACH. BED RAILS UP X'S 2. HOB 40 DEGREES. SCDS TO BILATERAL LEGS.
[2017-06-13 20:00] VITALS: BP 141/62
[2017-06-14] VITALS: BP 135/68
[2017-06-14 04:00] VITALS: BP 122/57
--- NOTE | 2017-06-14 07:02 | NUR ---
REPORT RECEIVED, ASSUMED CARE OF PT, RESTING WITH EYES SHUT, EASILY AROUSED. L HAND IV INFUSING FLUIDS ORDERED, DRSG C/D/I. MARTINEZ CATHETER IN PLACE, PATENT, DRAINING. L LÁZARO DRAIN IN PLACE, COMPRESSED. NO NEEDS VOICED AT THIS TIME, BED IN LOWEST POSITION, SIDE RAILS UP X 2, CALL LIGHT WITHIN REACH.
[2017-06-14 08:14] VITALS: BP 122/59
[2017-06-14] MEDS ORDERED: HYDROCODON-ACE1 EAC7 PO (13:52)
[2017-06-14] MEDS ORDERED: LEVAQUIN500 MG PO (13:52)
--- NOTE | 2017-06-14 16:08 | NUR ---
DISCHARGE INSTRUCTIONS GIVEN TO PT, WOUND VAC DELIVERED TO PT, DEMONSTRATED. PT VERBALIZED UNDERSTANDING AND SIGNED PAPERWORK. L HAND IV D/C'D, CATHETER INTACT, BLEED CONTROL, BANDAGE APPLIED. ALL QUESTIONS ANSWERED.
--- NOTE | 2017-06-14 16:48 | NUR ---
PT DISCHARGED FROM FLOOR WITH FAMILY. NO NEEDS VOICED AT THIS TIME. ALL QUESTIONS ANSWERED.
--- NOTE | 2017-06-14 19:23 | NUR ---
LATE Entry 1045 TC TO [facility] REGARDING APPROVAL OF WOUND VAC. WOUND VAC FOR RELEASE TODAY. TC TO [facility] TO ADVISE PATIENT WOULD BE DISCHARGED TO HOME TODAY. SPOKE WITH THE RUBBER STAMP MAKER NURSE, ROBI. TC TO NURSING TEAROOM HOST/HOSTESS, KAVON. WOUND VAC TO UNIT THE LATE PM. PATIENT LETTERS DELIVERED. RELEASE FORM FOR RECEIPT OF EQUIPMENT OBTAINED. PRIMARY NURSE, RYAN AND BRIAN INSTRUCTED PATIENT ON USE AND APPLIED HOME WOUND VAC. FAMILYNAT THE BEDSIDE TO ASSIST AND PROVIDE TRANSPORTATION TO HOME. FAXED [employer] FORM TO [facility], NURSING TEAROOM HOST/HOSTESS AND MATERIALS MANAGEMENT. ORGININAL COPY PLACED ON PATIENT'S HARD COPY MEDICAL RECORD. FAXED DISCHARGE ORDERS , DISCHARGE MED LIST AND DISCHARGE SUMMARY.
--- NOTE | 2017-06-16 09:40 | OP ---
PATIENT NAME: DACIA MA MEDICAL RECORD: [id number] :36 LOCATION:D.MS Gal[facility]2202 ADMISSION DATE:06/12/17 SURGEON: ALEJANDRO ROBLEDO MD DATE OF OPERATION: 06/11/2017 PREOPERATIVE DIAGNOSES: 1. Postoperative wound dehiscence. 2. Right pelvic lymphocele. POSTOPERATIVE DIAGNOSES: 1. Postoperative wound dehiscence. 2. Right pelvic lymphocele. PROCEDURE: 1. Retention suture closure of postoperative wound dehiscence. 2. Talc poudrage of lymphocele. 3. Placement of wound VAC. SURGEON: Alejandro Robledo MD POLICE LIEUTENANT: Alejandro Dean M.D. BLOOD LOSS: Minimal. ANESTHESIA: General. COMPLICATIONS: None. OPERATIVE FINDINGS: The patient had a complete wound dehiscence. There was a right pelvic lymphocele. Dr. Dean assisted me with this procedure. OPERATIVE COURSE: The patient was conveyed to the operating room electively on 06/11/2017. General anesthesia was induced by anesthesia staff. The abdomen and genitals were sterilely prepped and draped. The wound was about 90% dehisced. We were able to bluntly extend this cephalad so that the entire wound was opened. We dissected along the right pelvic side wall. We encountered the lymphocele. Cultures were obtained. We aspirated the lymphocele. We irrigated with gentamicin solution. We then performed talc poudrage with vancomycin powder into the lymphocele. A 19-Lithuanian flat Krishna drain was brought through a stab incision in the left lower quadrant. It was placed across the midline and placed behind the pubic symphysis and in front of the bladder. We brought the end of the drain around along the right pelvic side wall. The drain was sutured to skin with a nylon suture. We then placed the sutures for the wound dehiscence closure. Over a red rubber Zafar bumpers in a horizontal mattress fashion, #2 nylons were used for the closure of wound dehiscence. Two of these double armed #2 nylons were utilized. We then buried the knots within the rubber bumper so that the knots were not showing. We trimmed the sutures. This allowed us to lay a wound VAC in the midline. I cut a black wound VAC sponge and placed it in the subcutaneous tissues. The cellophane-type dressings were applied over the wound VAC sponge. I then scored the wound VAC sponge. I then bridged the sponge out onto the right upper quadrant skin. A wound VAC disc was applied. Suction was applied. The wound VAC held a good "raisin" OPERATIVE REPORT [id number] DACIA MA indicating that it was functioning properly without a significant leak. The patient was then extubated and conveyed to post-anesthesia care unit where he was in stable condition. TRANSINT:[id number] Voice Confirmation ID: [id number] DOCUMENT ID: [id number] ALEJANDRO ROBLEDO MD at 0940 CC: ALEJANDRO DEAN MD [id number] DICTATION DATE: 06/11/17 1556 ELECTROMEDICAL EQUIPMENT TECHNICIAN: 06/11/17 1703 DIS IN 06/14/17 [place] [place] [address]
== END 2017-06-14 16:49 | disposition home health service (06) | DRG 909 ==
LOC: D.OPS 11:53 → D.MS 15:49 → D.OPS 06-12 10:01 → D.MS 06-14 16:49
PROVIDERS: Anesthesiology; Surgery; ADMIT Urology
PROC: 079 Lymphatic and Hemic Systems, Drainage (ICD-10-PCS; 2017-06-11)
PROC: 0WQF0ZZ Repair Abdominal Wall, Open Approach (ICD-10-PCS; principal; 2017-06-11 14:00)
DX: T81.32XA Disruption of internal operation (surgical) wound, not elsewhere classified, initial encounter (principal); I89.8 Other specified noninfective disorders of lymphatic vessels and lymph nodes; Z87.891 Personal history of nicotine dependence

== ENCOUNTER → 2017-06-17 09:37 | Outpatient (CLI) | payer MEDICARE, OTHER ==
[2017-06-12 14:06] VITALS: BMI 26.4
[~2017-06-17 09:37] MED LIST changes: +HYDROCODON-ACE1 EAC7 PO; +LEVAQUIN500 MG PO; +VIBRAMYCIN 100100 MG PO
== END | disposition home or self-care (01) ==
LOC: D.LAB 09:37
DX: C61 Malignant neoplasm of prostate (principal); Z12.5 Encounter for screening for malignant neoplasm of prostate

== ENCOUNTER 2017-06-20 16:14 | Emergency (ER) | payer MEDICARE, OTHER ==
[2017-06-12 14:06] VITALS: BMI 26.4
[2017-06-20 16:59] LABS: BASOPHILS 0.3 % (0-2); EOSINOPHILS 0.9 % (0-7); HEMATOCRIT 36.3 % (42.0-54.0); HEMOGLOBIN 12.1 g/dL (13.5-17.5); IMMATURE GRANULOCYTES 1.2 % (0-5); LYMPHOCYTES 17.9 % (15-50); MCH 30.5 pg (26.0-34.0); MCHC 33.3 g/dL (31.0-37.0); MCV 91.4 fL (80.0-100.0); MONOCYTES 11.6 % (2-11); NEUTROPHILS 68.1 % (40-80); PLATELET COUNT 167 10x3/uL (130-400); RBC 3.97 10x6/uL (4.20-6.10); RDW 12.9 % (11.5-14.5); WBC 7.8 10x3/uL (4.8-10.8)
[2017-06-20 17:13] LABS: ALKALINE PHOSPHATASE 80 U/L (46-116); ALT (SGPT) 28 U/L (10-68); CALC OSMOLALITY 267 mosm/kg (275-300); CALCIUM 8.7 mg/dL (8.5-10.1); CARBON DIOXIDE 27.3 mmol/L (21.0-32.0); CHLORIDE - SERUM 98 mmol/L (98-107); CREATININE - SERUM 0.9 mg/dL (0.6-1.3); GLUCOSE 123 mg/dL (74-106); POTASSIUM - SERUM 3.7 mmol/L (3.5-5.1); PROTEIN - SERUM 6.5 g/dL (6.4-8.2); SODIUM 134 mmol/L (136-145); UREA NITROGEN 10 mg/dL (7-18); eGFR NON AFRICAN AMERICAN 86 mL/min (90-120)
[2017-06-20 17:25] LABS: APPEARANCE CLEAR (CLEAR); BILIRUBIN NEGATIVE (NEGATIVE); COLOR DK YELLOW (YELLOW); GLUCOSE NEGATIVE (NEGATIVE); KETONE NEGATIVE (NEGATIVE); NITRITE NEGATIVE (NEGATIVE); PROTEIN TRACE mg/dL (NEGATIVE); UROBILINOGEN NORMAL (NORMAL)
[2017-06-20 17:28] LABS: BACTERIA FEW /hpf (NONE SEEN); RED CELLS - URINE 0-5 /hpf (0-5); WHITE CELLS - URINE 0-5 /hpf (0-5)
== END 2017-06-20 18:20 | disposition home or self-care (01) ==
LOC: D.ER 16:14
PROVIDERS: Emergency Medicine; Physician Assistant Medical
DX: R33.9 Retention of urine, unspecified (principal)

== ENCOUNTER → 2017-09-09 12:48 | Outpatient (CLI) | payer MEDICARE, OTHER ==
[2017-06-12 14:06] VITALS: BMI 26.4
== END | disposition home or self-care (01) ==
LOC: D.CT 12:48
DX: R10.2 Pelvic and perineal pain (principal)

== ENCOUNTER 2017-10-22 05:55 | Day surgery (SDC) | payer MEDICARE, OTHER ==
[2017-10-21 13:24] LABS: BASOPHILS 0.2 % (0-2); EOSINOPHILS 3.4 % (0-7); HEMATOCRIT 42.8 % (42.0-54.0); HEMOGLOBIN 14.2 g/dL (13.5-17.5); IMMATURE GRANULOCYTES 0.2 % (0-5); LYMPHOCYTES 33.6 % (15-50); MCH 29.9 pg (26.0-34.0); MCHC 33.2 g/dL (31.0-37.0); MCV 90.1 fL (80.0-100.0); MEAN PLATELET VOLUME 11.3 fL (7.4-10.4); NEUTROPHILS 54.6 % (40-80); RBC 4.75 10x6/uL (4.20-6.10); RDW 13.3 % (11.5-14.5); WBC 5.4 10x3/uL (4.8-10.8)
[2017-10-21 13:25] LABS: PLATELET COUNT 109 10x3/uL (130-400)
[2017-10-21 13:49] LABS: APTT 27.7 SECONDS (22.8-39.4); INR 1.06 (0.85-1.17); PROTIME 13.4 SECONDS (11.6-15.0)
[2017-10-21 14:04] LABS: CALC OSMOLALITY 285 mosm/kg (275-300); CALCIUM 8.9 mg/dL (8.5-10.1); CARBON DIOXIDE 30.4 mmol/L (21.0-32.0); CHLORIDE - SERUM 106 mmol/L (98-107); CREATININE - SERUM 0.8 mg/dL (0.6-1.3); GLUCOSE 100 mg/dL (74-106); POTASSIUM - SERUM 4.2 mmol/L (3.5-5.1); SODIUM 143 mmol/L (136-145); UREA NITROGEN 15 mg/dL (7-18); eGFR NON AFRICAN AMERICAN > 90 mL/min (90-120)
[~2017-10-22] VITALS: Ht 177.8 cm; Wt 85.3 kg
--- NOTE | ~2017-10-22 | OP ---
PATIENT NAME: DACIA MA MEDICAL RECORD: [id number] :36 LOCATION:D.OPS ADMISSION DATE: SURGEON: ALEJANDRO DEAN MD DATE OF OPERATION: 10/22/2017 SURGEON: Alejandro Dean MD ANESTHESIA: General anesthesia. ANESTHESIOLOGIST: Alejandro Chapman MD DIAGNOSES: Urinary retention, bladder neck contracture. PROCEDURES: Cystoscopy, direct vision internal urethrotomy, Sharma catheter insertion over a guidewire. FINDINGS: Very tight stricture of the bladder neck. BLOOD LOSS: None. CLINICAL HISTORY: This is an 81-year-old male, who had a radical prostatectomy for high-grade prostate cancer in June of 2017. His postoperative course was complicated by wound dehiscence and he needed placement of retention sutures and the wound VAC. This has completely healed. After we removed his indwelling Sharma catheter, he was unable to void. He has been performing self-intermittent catheterization since his Sharma catheter was removed postop. Today, he was scheduled to have a trial of InterStim which is the bladder pacemaker. We would see if we could get his bladder to empty itself. The patient asked the nurse this morning that he normally self catheterizes and he feels that he needs to go. We told him that we would catheterize him while he was asleep. HE IS ALLERGIC TO PENICILLIN. He was given Levaquin 500 mg IV construction grip to the OR. DESCRIPTION OF PROCEDURE: The patient was given induction of general anesthesia while on the stretcher. We attempted to place a Sharma catheter and immediately met resistance near the hub of the catheter indicating that the stricture was in the bulbar urethra or bladder neck level. Rather than try to force or weight through, I decided to look with the cystoscopy and possibly perform direct vision internal urethrotomy of a stricture. Also, since the stricture may be the cause of his retention, I did not proceed with the InterStim trial today. He was moved to the OR table. Unfortunately, the OR table was setup for the InterStim trial. Therefore, we had to frog leg his lower limbs and prepped and draped him. The 12-degree lens in the optic urethrotome was used for visualization. There was a very tight stricture in the level of the bladder neck. A Sensor wire was placed through the bladder neck into the bladder. A cold knife blade was then used through the optic urethrotome to incise at 12 o'clock until the scope could pass all the way into the bladder. At this point, the scope was removed and over the Sensor wire, we inserted a 16-Greek [place] tip Sharma catheter. This will be put to bag drainage. The balloon was inflated with 10 cc of sterile water and then the Sensor wire was completely removed. The patient will be going home today. I will see him in followup in 2 weeks' time to remove the Sharma catheter for a voiding trial at that time. TRANSINT:[id number] Voice Confirmation ID: [id number] DOCUMENT ID: [id number] OPERATIVE REPORT [id number] DACIA MA ROBERT S MD at 1204 CC: [id number] DICTATION DATE: 10/22/17 1009 FRUIT AND VEGETABLE FACTORY WORKER: 10/22/17 1118 REG [facility] [address] [place] [address]
[2017-10-22 06:37] VITALS: BP 143/63; Ht 177.8 cm; Wt 85.3 kg
== END 2017-10-22 11:45 | disposition home or self-care (01) ==
LOC: D.OPS 05:55 → D.PAN 08:00 → D.OPS 11:45
PROVIDERS: Anesthesiology
DX: R33.9 Retention of urine, unspecified (principal); N32.0 Bladder-neck obstruction; I10 Essential (primary) hypertension; Z01.812 Encounter for preprocedural laboratory examination

== ENCOUNTER → 2018-03-22 07:45 | Outpatient (CLI) | payer MEDICARE, OTHER | END | disposition home or self-care (01) | LOC: D.NM 07:45 | DX: C61 Malignant neoplasm of prostate (principal) ==

== ENCOUNTER → 2018-04-22 08:11 | Outpatient (CLI) | payer MEDICARE, OTHER | END | disposition home or self-care (01) | LOC: D.RAD 08:11 | DX: C61 Malignant neoplasm of prostate (principal) ==

== ENCOUNTER → 2018-08-09 17:26 | Outpatient (CLI) | payer MEDICARE, OTHER | END | disposition home or self-care (01) | LOC: D.LABREF 17:26 | DX: R31.9 Hematuria, unspecified (principal); D72.829 Elevated white blood cell count, unspecified ==

== ENCOUNTER 2018-10-07 09:09 | Day surgery (SDC) | payer MEDICARE, OTHER ==
[~2018-10-07] VITALS: Ht 177.8 cm; Wt 86.2 kg
[~2018-10-07 09:09] MED LIST changes: +ATIVAN0.5 MG PO; +NEURONTIN600 MG PO; +NORMODYNE / TR100 MG PO
[2018-10-07 09:31] LABS: BASOPHILS 0.4 % (0-2); EOSINOPHILS 4.6 % (0-7); HEMATOCRIT 42.5 % (42.0-54.0); HEMOGLOBIN 14.1 g/dL (13.5-17.5); IMMATURE GRANULOCYTES 0.2 % (0-5); LYMPHOCYTES 19.2 % (15-50); MCHC 33.2 g/dL (31.0-37.0); MCV 93.4 fL (80.0-100.0); NEUTROPHILS 61.6 % (40-80); PLATELET COUNT 112 10x3/uL (130-400); RBC 4.55 10x6/uL (4.20-6.10); RDW 12.4 % (11.5-14.5); WBC 4.8 10x3/uL (4.8-10.8)
[2018-10-07 09:43] LABS: CALC OSMOLALITY 284 mosm/kg (275-300); CALCIUM 8.7 mg/dL (8.5-10.1); CHLORIDE - SERUM 104 mmol/L (98-107); GLUCOSE 109 mg/dL (74-106); POTASSIUM - SERUM 4.3 mmol/L (3.5-5.1); SODIUM 142 mmol/L (136-145); UREA NITROGEN 14 mg/dL (7-18); eGFR NON AFRICAN AMERICAN 76 mL/min (90-120)
[2018-10-07 09:52] LABS: APTT 29.4 SECONDS (22.8-39.4)
[2018-10-07 09:54] LABS: INR 1.04 (0.85-1.17); PROTIME 13.1 SECONDS (11.6-15.0)
[2018-10-07 10:01] VITALS: BP 171/68; Ht 177.8 cm; Wt 86.2 kg
--- NOTE | 2018-10-07 13:05 | NUR ---
REC'D FROM SURGERY. MARTINEZ CATHETER TO GRAVITY DRAINING BLOOD TINGED URINE. WATER BROUGHT TO PT.
--- NOTE | 2018-10-07 13:35 | NUR ---
TOLERATED FL TRAY. IV DC'D WITH CATHETER INTACT.
--- NOTE | 2018-10-07 13:50 | NUR ---
WRITTEN AND VERBAL DC INST. GIVEN TO PT. ALONG WITH RX. VERBALIZED UNDERSTANDING.
--- NOTE | 2018-10-07 14:00 | NUR ---
DC'D HOME WITH FRIEND VIA PRIVATE VEHICLE. TAKEN TO VEHICLE VIA WC. STABLE AT TIME OF DC.
--- NOTE | 2018-10-07 14:20 | OP ---
PATIENT NAME: DACIA MA MEDICAL RECORD: [id number] :36 LOCATION:JEFF ADMISSION DATE: SURGEON: NOLA DEAN MD DATE OF OPERATION: 10/07/2018 SURGEON: Nola Dean MD ANESTHESIA: General anesthesia by Liam Valencia CRNA. DIAGNOSIS: Bladder neck contracture. PROCEDURES: Cystoscopy, bladder neck incision at the 12 o'clock and the 6 o'clock position. FINDINGS: Tight bladder neck contracture. ESTIMATED BLOOD LOSS: Minimal. CLINICAL HISTORY: This is an 82-year-old male, who has had [place]'s 10 prostate cancer. He had a radical prostatectomy and afterwards and he is in chronic urinary retention. He performs self-intermittent catheterization on a q.i.d. basis. He is also getting Lupron injections for positive margins on the prostatectomy specimen. He is having increasing difficulty catheterizing himself. He comes today to have a bladder neck incision done. He previously had a bladder neck contracture in October 2017 and I did perform a bladder neck incision at that time. HE IS ALLERGIC TO PENICILLIN. He was given Levaquin online publisher to the OR. DESCRIPTION OF PROCEDURE: The patient was given induction of general anesthesia. He was then placed in the dorsal lithotomy position and prepped and draped. A 17-Senegalese cystoscope was used for visualization. The prostatic urethra was absent. Going into the bladder neck region, we have a very tight opening of the urethral lumen. A Sensor wire was placed into the bladder through the lumen of the bladder neck contracture. I then changed over to the optic urethrotome for urethral strictures. Using the cold knife at the 12 o'clock position, I made incisions to open up the bladder neck. I also turned the scope 180 degrees, so that we made incisions at the 6 o'clock position. Finally, the scope could pass all the way through into the bladder. The scope was then removed. Over the wire, we inserted a 16-Senegalese Sharma catheter. Once the Sharma catheter was in the bladder and the balloon inflated with 10 cc of sterile water, the wire was removed entirely. The patient will go home with a Sharma catheter to allow the bladder neck to contract to the diameter of the catheter. I will see him in followup next week to remove the Sharma catheter. TRANSINT:[id number] Voice Confirmation ID: [id number] DOCUMENT ID: [id number] NOLA DEAN MD at 1420 CC: [id number] DICTATION DATE: 10/07/18 1309 POT OPERATOR: 10/07/18 1343 [address] [place] [id number] [place] [id number]
== END 2018-10-07 14:00 | disposition home or self-care (01) ==
LOC: D.OPS 09:09 → D.PAN 12:15 → D.OPS 14:00
PROVIDERS: Anesthesiology; ATTEND Urology
DX: N32.0 Bladder-neck obstruction (principal); Z01.812 Encounter for preprocedural laboratory examination

== ENCOUNTER → 2018-10-28 09:26 | Outpatient (CLI) | payer MEDICARE, OTHER ==
[2018-10-07 10:01] VITALS: BMI 27.3
== END | disposition home or self-care (01) ==
LOC: D.LABREF 09:26
PROVIDERS: ATTEND Urology
DX: R31.9 Hematuria, unspecified (principal); D72.829 Elevated white blood cell count, unspecified

== ENCOUNTER 2018-11-09 06:10 | Day surgery (SDC) | payer MEDICARE, OTHER ==
[2018-11-08 09:18] LABS: BASOPHILS 0.4 % (0-2); EOSINOPHILS 3.5 % (0-7); HEMATOCRIT 38.3 % (42.0-54.0); HEMOGLOBIN 12.8 g/dL (13.5-17.5); IMMATURE GRANULOCYTES 0.2 % (0-5); LYMPHOCYTES 14.2 % (15-50); MCH 30.3 pg (26.0-34.0); MCHC 33.4 g/dL (31.0-37.0); MCV 90.8 fL (80.0-100.0); MEAN PLATELET VOLUME 10.3 fL (7.4-10.4); MONOCYTES 13.3 % (2-11); NEUTROPHILS 68.4 % (40-80); PLATELET COUNT 95 10x3/uL (130-400); RBC 4.22 10x6/uL (4.20-6.10); RDW 12.9 % (11.5-14.5); WBC 4.6 10x3/uL (4.8-10.8)
[2018-11-08 09:26] LABS: CALC OSMOLALITY 281 mosm/kg (275-300); CALCIUM 8.4 mg/dL (8.5-10.1); CARBON DIOXIDE 28.9 mmol/L (21.0-32.0); CHLORIDE - SERUM 105 mmol/L (98-107); CREATININE - SERUM 0.9 mg/dL (0.6-1.3); GLUCOSE 115 mg/dL (74-106); POTASSIUM - SERUM 3.8 mmol/L (3.5-5.1); SODIUM 140 mmol/L (136-145); UREA NITROGEN 17 mg/dL (7-18); eGFR NON AFRICAN AMERICAN 86 mL/min (90-120)
[2018-11-08 09:43] LABS: PLATELET ESTIMATE DECREASED
[~2018-11-09] VITALS: Ht 177.8 cm; Wt 89.8 kg
[2018-11-09 06:35] VITALS: BP 152/64; Ht 177.8 cm; Wt 89.8 kg
--- NOTE | 2018-11-09 12:14 | OP ---
PATIENT NAME: DACIA MA MEDICAL RECORD: [id number] :36 LOCATION:DBRENDA ADMISSION DATE: SURGEON: NOLA DEAN MD DATE OF OPERATION: 11/09/2018 SURGEON: Nola Dean MD ANESTHESIA: TIVA by Abigail Saleh CRNA. DIAGNOSIS: Chronic urinary retention. PROCEDURE: InterStim stage I, right S3 nerve root. FINDINGS: No response from the left S3 nerve root. Slight sensory responses and right heel rotation on the right S3 nerve root. BLOOD LOSS: Minimal. CLINICAL HISTORY: This is an 82-year-old male, who was heavily exposed to Agent [place] while he was in [place]. He developed a [place] 10 prostate cancer. About a year and a half to 2 years ago, I performed a radical prostatectomy on him. Since that time, he has been in urinary retention. He performs self-intermittent catheterization 4 times a day. He has had bladder neck incisions and this has also not helped for him to void spontaneously. 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 Today, we are performing a stage I InterStim trial to see if we can get him to void spontaneously again. HE IS ALLERGIC TO PENICILLIN. He was given Levaquin IV welding machine operator ultrasonic to the OR. DESCRIPTION OF PROCEDURE: The patient was placed in prone position. He was given IV sedation. He was prepped and draped. Under fluoroscopy, we identified the role of sacral foramina and this was marked out with a marking pen. The S3 foramen level was marked out also. The skin overlying the foramen was infiltrated with 1% lidocaine with epinephrine. The spinal needles were placed into S3 on both sides. On testing with electrical stimulation even up to 6 volts, he has a minimal response. He had no response at all on the left side. There was a slight sensory response and that he was feeling something in the sacral and buttock region and there was some right heel rotation. I also attempted stimulation of the S2 and S4 nerve roots on both sides and again there was minimal response. He truly does have a problem with peripheral nerve conduction. Nevertheless, as this was his only chance to possibly void spontaneously again, we decided to go with the right S3 nerve root, which shows some degree of response. The stylet was removed from the spinal needle. An extra-long stylet was placed down the lumen of the spinal needle. A #15-blade was used for a stab incision at the base of the spinal needle to increase the incision length. The spinal needle was then removed. The trocar dilator was introduced and under fluoroscopic guidance, the trocar sheath was placed in the correct depth in the sacral bone. The dilator and the extra-long stylet were then removed. The 4-channel electrode was placed into the right S3 foramen. Each of the channels was tested. Again, there was a minimal response, but there was some sensory response towards channel 1 and channel 2. There was also a mild heel rotation response. There were no raisa or great toe flexion response. We then infiltrated a 2.2 cm area in the right iliac crest region with local anesthetic. A linear incision was made here. The tunneling device was used to bring the distal end of the permanent electrode to this new incision OPERATIVE REPORT [id number] DACIA MA. Here the permanent electrode was connected to the temporary test engine operator. The connection was made by tightening down 4 screws using a torque-limiting screwdriver. The connection was made watertight by placement of a silicone sheath over the connection. The ends of the sheath were tied down with 2-0 Prolene to render the connection watertight. The tunneling device was again used to create an exit site for the temporary test electrode just to the left of the midline. The wound was irrigated out with saline. The 2 cm right iliac crest incision was closed in 2 layers. The first layer was a 3-0 simple interrupted Vicryl to reapproximate the subcutaneous fat. Edi were used to close the incision. Dressings were applied. The patient was then hooked up to the temporary pacemaker. We will see the patient in followup next week to check on his voiding symptoms. TRANSINT:[id number] Voice Confirmation ID: [id number] DOCUMENT ID: [id number] NOLA DEAN MD at 1214 CC: [id number] DICTATION DATE: 11/09/18 1010 ADJUNCT PROFESSOR OF LAW: 11/09/18 1117 [facility] 11/09/18 [place] [id number]
== END 2018-11-09 11:08 | disposition home or self-care (01) ==
LOC: D.OPS 06:10 → D.PAN 08:20 → D.OPS 08:20
PROVIDERS: Anesthesiology; ATTEND Urology
DX: R33.8 Other retention of urine (principal); T60.3X Toxic effect of herbicides and fungicides; G62.2 Polyneuropathy due to other toxic agents; Z88.0 Allergy status to penicillin; Z01.812 Encounter for preprocedural laboratory examination

== ENCOUNTER 2018-11-18 05:46 | Day surgery (SDC) | payer MEDICARE, OTHER ==
[~2018-11-18] VITALS: Ht 177.8 cm; Wt 92.5 kg
[2018-11-18 05:48] LABS: BASOPHILS 0.4 % (0-2); EOSINOPHILS 2.3 % (0-7); HEMOGLOBIN 12.4 g/dL (13.5-17.5); IMMATURE GRANULOCYTES 0.2 % (0-5); MCH 30.2 pg (26.0-34.0); MCHC 33.5 g/dL (31.0-37.0); MEAN PLATELET VOLUME 10.1 fL (7.4-10.4); MONOCYTES 18.2 % (2-11); NEUTROPHILS 68.9 % (40-80); PLATELET COUNT 90 10x3/uL (130-400); RBC 4.11 10x6/uL (4.20-6.10); RDW 13.1 % (11.5-14.5); WBC 5.6 10x3/uL (4.8-10.8)
[2018-11-18 05:59] LABS: APTT 30.7 SECONDS (22.8-39.4); INR 1.07 (0.85-1.17); PROTIME 13.4 SECONDS (11.6-15.0)
[2018-11-18 06:12] LABS: CALC OSMOLALITY 279 mosm/kg (275-300); CALCIUM 8.2 mg/dL (8.5-10.1); CARBON DIOXIDE 27.3 mmol/L (21.0-32.0); CHLORIDE - SERUM 104 mmol/L (98-107); CREATININE - SERUM 0.9 mg/dL (0.6-1.3); GLUCOSE 117 mg/dL (74-106); POTASSIUM - SERUM 3.9 mmol/L (3.5-5.1); SODIUM 139 mmol/L (136-145); UREA NITROGEN 14 mg/dL (7-18); eGFR NON AFRICAN AMERICAN 86 mL/min (90-120)
[2018-11-18 08:07] VITALS: BP 165/51; Ht 177.8 cm; Wt 92.5 kg
--- NOTE | 2018-11-18 10:20 | NUR ---
REC'D FROM SURGERY. NO FAMILY AT BEDSIDE. DRESSING DI TO LOWER BACK. INCONTINENT OF URINE. BED HAD TO BE CHANGED AND PT CLEANED AND NEW GOWN PUT ON. PT HAD SACRAL STIMULATOR REMOVED AND RELATES HE SELF CATHS. CRANBERRY JUICE BROUGHT TO PATIENT.
--- NOTE | 2018-11-18 11:15 | NUR ---
GAMA MARTINEZMindi SERVED TO PATIENT.
--- NOTE | 2018-11-18 11:35 | NUR ---
TOLERATED DIET. IV DC'D WITH CATHETER INTACT.
--- NOTE | 2018-11-18 11:45 | NUR ---
MARY BETH, PATIENT'S FRIEND IS HERE TO PICK HIM UP. WRITTEN AND VERBAL DC INST. GIVEN TO PT. ALONG WITH RX. VERBALIXED UNDERSTANDING.
--- NOTE | 2018-11-18 12:05 | NUR ---
DC'D HOME WITH FRIEND VIA PRIVATE VEHICLE. TAKEN TO VEHICLE VIA WC. STABLE AT TIME OF DC.
--- NOTE | 2018-11-18 12:54 | OP ---
PATIENT NAME: DACIA MA MEDICAL RECORD: [id number] :36 LOCATION:JEFF ADMISSION DATE: SURGEON: NOLA DEAN MD DATE OF OPERATION: 11/18/2018 SURGEON: Nola Dean MD ANESTHESIA: TIVA by Juan R Ojeda DIAGNOSIS: Failed InterStim stage I trial for chronic urinary retention. PROCEDURE: Removal of InterStim lead. BLOOD LOSS: Minimal. CLINICAL HISTORY: This is an 82-year-old male who has chronic urinary retention after a radical prostatectomy. He had Agent [place] exposure while he was in [place]. This Agent [place] led to a [place] 10 prostate cancer. He had radical prostatectomy to remove the prostate. Afterwards, he was unable to void. He performs self-intermittent catheterization on a q.i.d. basis. He also has peripheral neuropathy from Agent [place]. I performed a trial of InterStim a week ago to see if he might possibly be able to void spontaneously again. During the trial, we found that due to his neuropathy, he required very high voltages to even get a response of any kind. I was dubious, but since there was no other chance for this patient, I decided to proceed with trial. In the intervening week, we noticed that he is not voiding at all spontaneously. He still relies on the catheter. This is with voltages in the 5-6 range. Therefore, the trial is a failure. We will proceed to remove the InterStim lead. HE IS ALLERGIC TO PENICILLIN. He was given Levaquin IV on-call to the OR. DESCRIPTION OF PROCEDURE: The patient was given IV sedation in the prone position. He was prepped and draped. Lidocaine 1% with epinephrine was injected into the right iliac crest region, where the connection between the temporary software development test engineer and the permanent electrode is present. Also, the area where the permanent electrode goes into the S3 foramen was infiltrated with epinephrine containing lidocaine. The miranda were removed. The previous temporary software development test engineer was cut where it exited the skin. The skin incisions were reopened just by pulling them apart. The permanent electrode and software development test engineer connection was found and was brought out into the open. By tugging on this permanent electrode, we were able to see the exact site of its implantation into the foramen. A hemostat was then used to pull the tined leads out from the S3 foramen. Because of the tines, the lead cannot be fully retracted through the subcutaneous tissue. Therefore, the region with the tines was cut off and then the rest of the lead was completely removed. These were discarded. The wound was irrigated out with normal saline. A 3-0 Vicryl suture was used to reapproximate the subcutaneous tissue in the right iliac crest region incision. Blackburn were used to close the incision. Band-Aid dressings were applied. I will see the patient back in one week's time to remove the miranda. TRANSINT:[id number] Voice Confirmation ID: [id number] DOCUMENT ID: [id number] OPERATIVE REPORT [id number] DACIA MA, NOLA Anguiano MD at 1254 CC: [id number] DICTATION DATE: 11/18/18951 CARD CHECKER: 11/18/18 1251 REG [facility] [address] [place] [address]
== END 2018-11-18 12:05 | disposition home or self-care (01) ==
LOC: D.OPS 05:46 → D.PAN 08:15 → D.OPS 12:05 → D.PAN 15:00
PROVIDERS: Anesthesiology; ATTEND Urology
DX: R33.8 Other retention of urine (principal)

== ENCOUNTER 2018-11-26 18:15 | Emergency (ER) | payer MEDICARE, OTHER ==
[~2018-11-26] VITALS: Ht 177.8 cm; Wt 91.8 kg
[2018-11-26 18:40] VITALS: Ht 177.8 cm; Wt 91.8 kg
[2018-11-26 19:27] LABS: APPEARANCE CLEAR (CLEAR); BILIRUBIN NEGATIVE (NEGATIVE); COLOR YELLOW (YELLOW); GLUCOSE NEGATIVE (NEGATIVE); KETONE NEGATIVE (NEGATIVE); NITRITE NEGATIVE (NEGATIVE); PROTEIN NEGATIVE (NEGATIVE); UROBILINOGEN NORMAL (NORMAL)
[2018-11-26 19:29] LABS: BACTERIA FEW /hpf (NONE SEEN); RED CELLS - URINE 25-50 /hpf (0-5); WHITE CELLS - URINE 0-5 /hpf (0-5)
[2018-11-26 21:03] LABS: BASOPHILS 0.4 % (0-2); EOSINOPHILS 4.6 % (0-7); HEMATOCRIT 33.3 % (42.0-54.0); HEMOGLOBIN 11.2 g/dL (13.5-17.5); IMMATURE GRANULOCYTES 0.4 % (0-5); LYMPHOCYTES 14.1 % (15-50); MCH 30.3 pg (26.0-34.0); MCHC 33.6 g/dL (31.0-37.0); MEAN PLATELET VOLUME 9.5 fL (7.4-10.4); MONOCYTES 14.4 % (2-11); NEUTROPHILS 66.1 % (40-80); PLATELET COUNT 107 10x3/uL (130-400); WBC 5.7 10x3/uL (4.8-10.8)
[2018-11-26 23:17] VITALS: BP 128/61
[2018-11-27] MEDS ORDERED: TYLENOL W/CODEI1 TAB PO (03:22)
== END 2018-11-26 23:17 | disposition home or self-care (01) ==
LOC: D.ER 18:15
PROVIDERS: Emergency Medicine
DX: R31.9 Hematuria, unspecified (principal); Z98.890 Other specified postprocedural states

== ENCOUNTER 2018-11-27 01:09 | Observation (INO) | payer MEDICARE, OTHER ==
[2018-11-27] VITALS (10 sets, daily range): BP systolic 115–169; BP diastolic 57–74; BMI 28.7
[2018-11-27 02:59] LABS: APTT 30.3 SECONDS (22.8-39.4); INR 1.13 (0.85-1.17)
--- NOTE | 2018-11-27 03:10 | NUR ---
PT ARRIVED VIA WHEELCHAIR. AMBULATES INDEPENDENTLY WITHOUT DIFFICULTY. CHANGED INTO GOWN. ALERT AND ORIENTED X4. IV RIGHT AC INFUSING NS @ 75. HARD OF HEARING, WEARS HEARING AIDS. HAS FULL SET OF DENTURES. PLACED ALLERGY BAND ON PATIENT. PATIENT STATES HE SELF CATHS HIMSELF 4-5X DAILY WHEN HE FEELS HE HAS TO GO. PROVIDED PT WITH CATH KIT. CALLED ELECTRICAL FOREMAN TO BRING MORE SELF CATHETERS TO FLOOR. PT DENIES OTHER NEEDS AT THIS TIME. CL IN REACH, WILL CONT TO MONITOR
[2018-11-27] MEDS ORDERED: TYLENOL W/CODEI1 TAB PO (03:22)
--- NOTE | 2018-11-27 10:23 | NUR ---
DR DEAN HAS BEEN IN TO SEE PATIENT. PT REQUESTED SOME IN AND OUT CATHS TO SELF CATH. HE RECEIVED THESE. CONSENTS ARE SIGNED. TM
--- NOTE | 2018-11-27 17:44 | OP ---
PATIENT NAME: DACIA MA MEDICAL RECORD: [id number] :36 LOCATION:D.MS [facility]2219 ADMISSION DATE:11/27/18 SURGEON: ALEJANDRO DEAN MD DATE OF OPERATION: 11/27/2018 SURGEON: Alejandro Dean MD ANESTHESIA: General anesthesia by Abigail Saleh CRNA. DIAGNOSES: Gross hematuria, bladder neck contracture, urethral false passages. PROCEDURE: Cystoscopy, bladder neck resection on the left side, bladder clot evacuation, Sharma catheter insertion over a guidewire. FINDINGS: Bladder neck contracture, multiple urethral false passages due to catheterization attempts. These false passages are the source of the bleeding. SPECIMENS: Bladder neck. ESTIMATED BLOOD LOSS: None. CLINICAL HISTORY: This is an 82-year-old male, who was exposed to Agent [place] while he was in [place]. About 50 years later, he developed a Murphy score 10 prostate cancer. I gave him a radical prostatectomy for this. The margins are positive and he is on Lupron since that time. His PSA is currently undetectable. He has neuropathy from the Agent [place] and he cannot void. He has been in chronic urinary retention. He performs self-intermittent catheterization 4-6 times per day. He has been experiencing difficulty putting the catheter in. About a month ago, he developed a urinary tract infection and that was treated with Levaquin. I looked in and I performed a bladder neck incision using a cold knife to treat the bladder neck contracture. Recently, he complained again of difficulty inserting catheter with significant pain when he attempts to insert the catheter. Yesterday, he complained of significant bleeding per the urethra. He came to the Emergency Room and the Emergency Room physician was concerned by the amount of blood coming out and the quantities of blood clots ever being seen. He was therefore admitted to hospital for cystoscopy, bladder clot evacuation and my original intention was to coagulate any bleeding vessels. He was given Levaquin IV firestop/containment worker to the OR. HE IS ALLERGIC TO PENICILLIN. DESCRIPTION OF PROCEDURE: The patient was initially given IV sedation and then was placed in the dorsal lithotomy position and prepped and draped. Lidocaine jelly was inserted into the urethra. Using a 21-Brazilian cystoscope with 30-degree lens, I found that he has no penile urethral strictures or tumors. The prostate has gone from the prostatectomy. There are multiple false passages in the bulbar urethra, near the anastomosis of the bladder. This was from his attempts to get past a very tight bladder neck contracture. There was a lot of irregular scar tissue around the bladder neck, especially on the left side. It was actually difficult to distinguish, which was the true urethral lumen. I placed a Sensor wire through the lumen into the bladder. The 21-Brazilian scope could not follow the wire into the bladder due to the narrowness of the contracture. At this point, I removed the cystoscope and inserted a resectoscope with 24-Brazilian resection loop. We used sterile water for irrigation and monopolar cautery was used. I resected the left bladder neck. This was where most of the irregular scar tissue was located. As I did so, OPERATIVE REPORT [id number] DACIA MA there was some bleeding from the bladder neck vessels and the arterial bleeding as well as any significant venous bleeding was fully coagulated. There was no perforation of the bladder neck. The resected tissue was sent to pathology for diagnosis. At the end of the procedure, the bladder neck was wide enough for me to introduce the whole resectoscope into the bladder. There were some small clots here. We switched back to the cystoscope, and using the cystoscope sheath and an Mailjet evacuator, the blood clots were removed. The wire was definitely seen to be in the bladder. We then removed the cystoscope entirely. Over the Sensor wire, we inserted a 16-Brazilian Sharma catheter. Once the catheter was fully in the bladder, the balloon was inflated with 10 cc of sterile water. The Sensor wire was then completely removed. The Sharma catheter was put to bag drainage. He will keep the Sharma catheter for a period of 10 days to 2 weeks to allow the bladder neck to heal to at least the diameter of the Sharma catheter. I will keep the patient in the hospital for another day to be sure that no further active bleeding occurs. TRANSINT:[id number] Voice Confirmation ID: [id number] DOCUMENT ID: [id number] ALEJANDRO DEAN MD at 1744 CC: [id number] DICTATION DATE: 11/27/18 1251 BROOD STATION MANAGER: 11/27/18 1343 ADM IN [facility] [address] [place] [address]
[2018-11-28 00:18] VITALS: BP 148/54
--- NOTE | 2018-11-28 02:21 | NUR ---
RESTING EYES CLOSED NO S/S OF DISTRESS
[2018-11-28 04:58] VITALS: BP 118/55
[2018-11-28 05:34] LABS: BASOPHILS 0.4 % (0-2); EOSINOPHILS 3.8 % (0-7); HEMATOCRIT 33.4 % (42.0-54.0); IMMATURE GRANULOCYTES 0.4 % (0-5); LYMPHOCYTES 15.4 % (15-50); MCH 30.1 pg (26.0-34.0); MCHC 32.9 g/dL (31.0-37.0); MCV 91.3 fL (80.0-100.0); MEAN PLATELET VOLUME 10.4 fL (7.4-10.4); MONOCYTES 12.1 % (2-11); NEUTROPHILS 67.9 % (40-80); PLATELET COUNT 113 10x3/uL (130-400); RBC 3.66 10x6/uL (4.20-6.10); RDW 13.3 % (11.5-14.5); WBC 5.5 10x3/uL (4.8-10.8)
[2018-11-28 05:48] LABS: CALC OSMOLALITY 280 mosm/kg (275-300); CALCIUM 8.1 mg/dL (8.5-10.1); CARBON DIOXIDE 26.4 mmol/L (21.0-32.0); CHLORIDE - SERUM 106 mmol/L (98-107); CREATININE - SERUM 0.9 mg/dL (0.6-1.3); GLUCOSE 103 mg/dL (74-106); POTASSIUM - SERUM 4.3 mmol/L (3.5-5.1); SODIUM 140 mmol/L (136-145); UREA NITROGEN 17 mg/dL (7-18); eGFR NON AFRICAN AMERICAN 86 mL/min (90-120)
[2018-11-28 09:26] VITALS: BP 102/60
[2018-11-28 13:27] VITALS: BP 140/60
--- NOTE | 2018-11-28 13:51 | NUR ---
co left upper quadrant pain. says it feels like pressure. wctm
--- NOTE | 2018-11-28 15:17 | NUR ---
EKG SHOWS CONT AFIB AT 89. WAITING ON CARDIAC ENZYME LABS TO BE RAN
--- NOTE | 2018-11-28 15:30 | NUR ---
PATIENT DISCHARGE ON HOLD. WAITING TO BE SEEN BY CARDIOLOGY FOR CHEST PAIN. LABS AND EKG HAVE BEEN DONE.
[2018-11-28 16:08] LABS: CKMB 1.8 U/L (0.0-3.6); CREATINE KINASE 75 UL (21-232)
[2018-11-28 16:17] LABS: TROPONIN-I < 0.017 ng/mL (0.000-0.060)
[2018-11-28 18:09] VITALS: BP 135/54
--- NOTE | 2018-11-28 20:00 | NUR ---
ALERT RESTING IN BED, NO APPARENT DISTRESS, SEE SHIFT ASSESSMENT, CALL LIGHT IN REACH
[2018-11-28 21:05] VITALS: BP 161/62
[2018-11-29 05:49] VITALS: BP 169/80
--- NOTE | 2018-11-29 07:40 | NUR ---
PT RESTING IN BED, WATCHING TV. ALERT AND ORIENTED. UP AD YONY. MARTINEZ CATHETER PRESENT. IV TO RIGHT AC, NS INFUSING @ 75ML/HR. SITE PATENT WITHOUT REDNESS OR SWELLING. ARM ON ARMBOARD, WRAPPED IN KERLEX. POSSIBLE DISCHARGE TODAY. PT DENIES ANYTHING FURTHER AT THIS TIME. NO C/O PAIN. NO S/S OF ACUTE DISTRESS NOTED. CALL LIGHT IN REACH. WILL CONTINUE TO MONITOR.
[2018-11-29 08:04] VITALS: BP 153/65
[2018-11-29] MEDS ORDERED: HYDROCODON-ACE1 EAC7 PO (09:30)
--- NOTE | 2018-11-29 11:29 | NUR ---
PT DISCHARGED HOME VIA WHEELCHAIR. DISCONTINUED IV, CATHETER TIP INTACT. NO C/O PAIN. NO S/S OF ACUTE DISTRESS NOTED. WENT OVER DISCHARGE INSTRUCTIONS WITH PATIENT. PT ACKNOWLEDGED INSTRUCTIONS. PT DENIES ANYTHING FURTHER.
--- NOTE | 2018-12-01 10:39 | CN ---
PATIENT NAME:DACIA MA MEDICAL RECORD: [id number] : 37 LOCATION:D.MS [id number] ADMIT DATE: 11/27/18 ACCOUNT: [id number] CONSULTING PHYSICIAN: GENEVA IVEIRA MD REFERRING PHYSICIAN: NOLA DEAN MD DATE OF CONSULTATION: 11/29/2018 CARDIOLOGY CONSULT DIAGNOSES: 1. Chest pain. 2. Hypertension. 3. Hyperlipidemia. HISTORY OF PRESENT ILLNESS: Mr. Ma is in for a urologic procedure, had an episode of chest pain, now he thinks that this was gas pain. His troponin was normal. EKG is totally normal. He has no history of ischemic heart disease. He only has hypertension, controlled on Normodyne; hyperlipidemia, on Zocor. PHYSICAL EXAMINATION: GENERAL APPEARANCE: Well-nourished, well-developed, appears stated age. Level of distress, comfortable. PSYCHIATRIC: Mental status, alert, normal affect. Orientation, oriented to time, place and person. EYES: Lids and conjunctiva, noninjected. No discharge, no pallor. ENT: Lips, teeth, gums, normal dentition. Oropharynx, no cyanosis, no pallor. NECK: Carotid arteries, bilateral normal upstroke, no bruits, no thrills. JUGULAR VEINS: No jugular venous pressure or distention. CERVICAL LYMPH NODES: Nontender, nonenlarged. THYROID: Not enlarged. Nontender. No nodules. LUNGS: Respiratory effort, unlabored. CHEST: Normal curvature. No thoracic deformity. No chest wall tenderness. Percussion, resonant. Auscultation, clear. No wheezes, no rales, no rhonchi. CARDIOVASCULAR: Precordial exam, nondisplaced. No heaves or pericardial thrills. Rate and rhythm, regular. Heart sounds, normal S1, normal S2. No S3, no gallop, no rub. Systolic murmur, not heard. Diastolic murmur, not heard. EXTREMITIES: No cyanosis, no edema. Peripheral pulses, full and equal in all extremities, except as noted. No bruits appreciated. ABDOMEN: Soft, nondistended. Normal aorta. No bruit. Nontender. No masses. Liver, nontender, no hepatomegaly. Spleen, nontender, no splenomegaly. MUSCULOSKELETAL: No joint tenderness. No joint swelling. No erythema. NEUROLOGICAL: Normal gait, normal strength, normal tone. SKIN: Warm and dry. OVERALL IMPRESSION: Chest pain, most likely this was gas pain, normal EKG, normal troponin. At this time, no other cardiac workup or treatment is necessary unless he has recurrent pain. TRANSINT:[id number] Voice Confirmation ID: [id number] DOCUMENT ID: [id number] CONSULT REPORT [id number] DACIA MA, GENEVA JOHNSON at 1039 CC: [id number] DICTATION DATE: 11/29/18900 CARPENTER APPRENTICE: 11/29/18 1236 DIS IN 11/29/18 [facility] [address] [id number]
== END 2018-11-29 11:31 | disposition home or self-care (01) ==
LOC: D.ER 01:09 → D.MS 02:21 → D.EDHOLD 02:21 → OBSVTIME 02:21 → D.MS 02:55
PROVIDERS: Emergency Medicine; ADMIT Urology; ATTEND Urology
DX: R31.0 Gross hematuria (principal); N32.0 Bladder-neck obstruction; N36.5 Urethral false passage; R07.9 Chest pain, unspecified; I10 Essential (primary) hypertension; E78.5 Hyperlipidemia, unspecified

== ENCOUNTER → 2018-12-13 17:04 | Outpatient (CLI) | payer MEDICARE, OTHER ==
[2018-11-27 10:12] VITALS: BMI 28.7
[~2018-12-13 17:04] MED LIST changes: +TYLENOL W/CODEI1 TAB PO
== END | disposition home or self-care (01) ==
LOC: D.LABREF 17:04
PROVIDERS: ATTEND Urology
DX: D72.829 Elevated white blood cell count, unspecified (principal); R31.9 Hematuria, unspecified

== ENCOUNTER 2018-12-16 19:41 | Emergency (ER) | payer MEDICARE, OTHER ==
[~2018-12-16] VITALS: Ht 177.8 cm; Wt 90.0 kg
[2018-12-16 19:55] VITALS: BP 140/60; Ht 177.8 cm; Wt 90.0 kg
== END 2018-12-16 23:50 | disposition home or self-care (01) ==
LOC: D.ER 19:41
DX: T83.098A Other mechanical complication of other urinary catheter, initial encounter (principal)

== ENCOUNTER → 2018-12-29 17:55 | Outpatient (CLI) | payer MEDICARE, OTHER | END | disposition home or self-care (01) | LOC: D.LABREF 17:55 | DX: N39.0 Urinary tract infection, site not specified (principal) ==

== ENCOUNTER 2019-01-06 07:42 | Day surgery (SDC) | payer MEDICARE, OTHER ==
[2019-01-06 07:58] LABS: BASOPHILS 0.4 % (0-2); EOSINOPHILS 3.7 % (0-7); HEMATOCRIT 36.5 % (42.0-54.0); HEMOGLOBIN 12.2 g/dL (13.5-17.5); IMMATURE GRANULOCYTES 0.4 % (0-5); LYMPHOCYTES 16.3 % (15-50); MCH 30.3 pg (26.0-34.0); MCHC 33.4 g/dL (31.0-37.0); MCV 90.8 fL (80.0-100.0); MEAN PLATELET VOLUME 9.7 fL (7.4-10.4); MONOCYTES 14.3 % (2-11); NEUTROPHILS 64.9 % (40-80); PLATELET COUNT 108 10x3/uL (130-400); RBC 4.02 10x6/uL (4.20-6.10); RDW 13.6 % (11.5-14.5); WBC 5.1 10x3/uL (4.8-10.8)
[2019-01-06 08:07] LABS: CALC OSMOLALITY 277 mosm/kg (275-300); CALCIUM 8.9 mg/dL (8.5-10.1); CARBON DIOXIDE 26.7 mmol/L (21.0-32.0); CHLORIDE - SERUM 103 mmol/L (98-107); CREATININE - SERUM 0.8 mg/dL (0.6-1.3); GLUCOSE 110 mg/dL (74-106); POTASSIUM - SERUM 4.1 mmol/L (3.5-5.1); SODIUM 138 mmol/L (136-145); UREA NITROGEN 14 mg/dL (7-18); eGFR NON AFRICAN AMERICAN > 90 mL/min (90-120)
[2019-01-06 08:10] LABS: APTT 30.4 SECONDS (22.8-39.4); INR 1.11 (0.85-1.17); PROTIME 13.8 SECONDS (11.6-15.0)
[2019-01-06 09:19] VITALS: BP 154/63; BMI 29.3
--- NOTE | 2019-01-06 15:10 | NUR ---
REC'D FROM JOHN. CRANBERRY JUICE BROUGHT TO PATIENT.
--- NOTE | 2019-01-06 15:20 | NUR ---
GAMA GHOSH SERVED TO PT.
--- NOTE | 2019-01-06 15:25 | NUR ---
CALLED PATIENT'S TRANSPORTATION AND INFORMED TO WHAT TIME TO POCKET OPERATOR,
--- NOTE | 2019-01-06 16:20 | NUR ---
TOLERATED FL DIET. IV DC'D WITH CATHETER INTACT. MARTINEZ DRAINAGE BAG CHANGED TO LEG BAG.
--- NOTE | 2019-01-06 16:25 | NUR ---
WRITTEN AND VERBAL DC INST. GIVEN TO PT. VERBALIZED UNDERSTANDING.
--- NOTE | 2019-01-06 16:45 | NUR ---
DC'D HOME WITH FRIEND VIA PRIVATE VEHICLE. STABLE AT TIME OF DC.
--- NOTE | 2019-01-06 16:51 | OP ---
PATIENT NAME: DACIA MA MEDICAL RECORD: [id number] :37 LOCATION:D.OPS ADMISSION DATE: SURGEON: NOLA DEAN MD DATE OF OPERATION: 01/06/2019 SURGEON: Nola Dean MD ANESTHESIA: TIVA by Davey Olvera MD DIAGNOSES: Arturo hematuria, bladder neck contracture. PROCEDURES: Cystoscopy and fulguration of bleeders. FINDINGS: Bleeding from around the bladder neck due to catheter trauma. Also, some catheter trauma noted on the bladder wall. Bladder neck contracture. No bladder tumors were seen. BLOOD LOSS: None. CLINICAL HISTORY: This is an 83-year-old male, who was exposed to Agent [place] in [place]. 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 He also developed a Violetta 10 prostate cancer. He had a radical prostatectomy and margins are positive. He remains on Lupron injections. His PSA has been under control. He performs self-intermittent catheterization to drain the bladder. He has been finding it more difficult to insert the catheter and he has described gross hematuria afterwards. Today, we are going to cauterize the bleeding points. He was given Ancef transportation attendant to the OR. DESCRIPTION OF PROCEDURE: The patient was given IV sedation. He was then placed into the lithotomy position and prepped and draped. A 17-South African cystoscope was initially used for visualization. There are no penile urethral strictures or tumors. Going into the bladder neck region, there was some bleeding seen from the urethral side of the bladder neck anastomosis. There was some trauma also on the floor of the urethra from catheter insertion. The 17-South African scope was able to pass through the bladder neck contracture and looking in the bladder, we saw some areas of inflammation from the catheter striking the back wall of the bladder. No bladder tumors were seen. I then switched over to a 21-South African cystoscope. This would not pass through the bladder neck contracture. I did dilate the bladder neck contracture by passing the scope through it. There was bleeding seen from the right lateral, posterior, and the mid posterior palacios of the bladder neck anastomosis. These were cauterized using a Bugbee electrode. At the end of the procedure, there was no evident bleeding anymore. The scope was removed. A 16-South African Sharma catheter was inserted into the bladder and then the balloon was inflated with 10 cc of sterile water. This is to help the bladder neck heal to the diameter of the catheter. I will see the patient in followup next week to remove the Sharma catheter. TRANSINT:[id number] Voice Confirmation ID: [id number] DOCUMENT ID: [id number] OPERATIVE REPORT [id number] DACIA MA ROBERT S MD at 1651 CC: [id number] DICTATION DATE: 01/06/19 1436 PLANT ANATOMIST: 01/06/19 [id number] [place] [address]
== END 2019-01-06 16:45 | disposition home or self-care (01) ==
LOC: D.OPS 07:42 → D.PAN 13:00 → D.OPS 16:45
PROVIDERS: Anesthesiology; ATTEND Urology
DX: R31.0 Gross hematuria (principal); N32.0 Bladder-neck obstruction; Z77.098 Contact with and (suspected) exposure to other hazardous, chiefly nonmedicinal, chemicals; C61 Malignant neoplasm of prostate; G62.9 Polyneuropathy, unspecified; Z01.812 Encounter for preprocedural laboratory examination

== ENCOUNTER 2019-04-21 09:02 | Emergency (ER) | payer MEDICARE, OTHER ==
[~2019-04-21] VITALS: Ht 177.8 cm; Wt 91.8 kg
[2019-04-21 09:08] VITALS: Ht 177.8 cm; Wt 91.8 kg
[2019-04-21 09:55] LABS: ALBUMIN 4.1 g/dL (3.4-5.0); ALKALINE PHOSPHATASE 74 U/L (46-116); ALT (SGPT) 20 U/L (10-68); BILIRUBIN - TOTAL 0.57 mg/dL (0.2-1.3); CALC OSMOLALITY 276 mosm/kg (275-300); CARBON DIOXIDE 28.5 mmol/L (21.0-32.0); CHLORIDE - SERUM 103 mmol/L (98-107); GLUCOSE 69 mg/dL (74-106); INR 1.09 (0.85-1.17); POTASSIUM - SERUM 4.3 mmol/L (3.5-5.1); PROTEIN - SERUM 7.1 g/dL (6.4-8.2); PROTIME 13.6 SECONDS (11.6-15.0); SODIUM 139 mmol/L (136-145); UREA NITROGEN 15 mg/dL (7-18); eGFR NON AFRICAN AMERICAN 76 mL/min (90-120)
[2019-04-21 09:59] LABS: APPEARANCE CLOUDY (CLEAR); COLOR DY (YELLOW); GLUCOSE NEGATIVE (NEGATIVE); KETONE NEGATIVE (NEGATIVE); NITRITE NEGATIVE (NEGATIVE); PROTEIN 1+ mg/dL (NEGATIVE); SPECIFIC GRAVITY 1.015 (1.005-1.020)
[2019-04-21 10:00] LABS: AMORPHOUS SEDIMENT >1+ /lpf (NONE SEEN); BACTERIA MODERATE /hpf (NEGATIVE); BILIRUBIN NEGATIVE (NEGATIVE); EPITHELIAL CELLS 0-5 /hpf (0-5); RED CELLS - URINE 25-50 /hpf (0-5); UROBILINOGEN NORMAL (NORMAL); WHITE CELLS - URINE 0-5 /hpf (NEGATIVE); YEAST <1+ /hpf (NONE SEEN)
[2019-04-21] MEDS ORDERED: LEVOFLOXACIN500 MG PO (10:44)
[2019-04-21 11:57] LABS: BASOPHILS 0.5 % (0-2); EOSINOPHILS 2.1 % (0-7); HEMATOCRIT 38.8 % (42.0-54.0); HEMOGLOBIN 13.4 g/dL (13.5-17.5); IMMATURE GRANULOCYTES 0.5 % (0-5); LYMPHOCYTES 15.8 % (15-50); MCH 30.5 pg (26.0-34.0); MCHC 34.5 g/dL (31.0-37.0); MCV 88.4 fL (80.0-100.0); MEAN PLATELET VOLUME 11.2 fL (7.4-10.4); MONOCYTES 12.5 % (2-11); NEUTROPHILS 68.6 % (40-80); RBC 4.39 10x6/uL (4.20-6.10); RDW 12.9 % (11.5-14.5); WBC 5.6 10x3/uL (4.8-10.8)
[2019-04-21 11:58] LABS: PLATELET COUNT 141 10x3/uL (130-400)
[2019-04-21 12:35] VITALS: BP 142/73
== END 2019-04-21 12:35 | disposition home or self-care (01) ==
LOC: D.ER 09:02
PROVIDERS: Emergency Medicine
DX: N30.91 Cystitis, unspecified with hematuria (principal); E11.9 Type 2 diabetes mellitus without complications; I10 Essential (primary) hypertension

== ENCOUNTER → 2019-04-25 19:06 | Outpatient (CLI) | payer MEDICARE, OTHER ==
[2019-04-21 09:08] VITALS: BMI 29.0
[~2019-04-25 19:06] MED LIST changes: +LEVOFLOXACIN500 MG PO
== END | disposition home or self-care (01) ==
LOC: D.LABREF 19:06
PROVIDERS: ATTEND Urology
DX: Z00.01 Encounter for general adult medical examination with abnormal findings (principal)

== ENCOUNTER 2019-07-03 17:08 | Emergency (ER) | payer MEDICARE, OTHER ==
[~2019-07-03] VITALS: Ht 177.8 cm; Wt 77.3 kg
[2019-07-03 17:16] VITALS: Ht 177.8 cm; Wt 77.3 kg
[2019-07-03 19:37] LABS: APPEARANCE HAZY (CLEAR); COLOR YELLOW (YELLOW); GLUCOSE NEGATIVE (NEGATIVE); KETONE NEGATIVE (NEGATIVE); NITRITE NEGATIVE (NEGATIVE); PROTEIN NEGATIVE (NEGATIVE)
[2019-07-03 19:38] LABS: BACTERIA MANY /hpf (NEGATIVE); BILIRUBIN NEGATIVE (NEGATIVE); EPITHELIAL CELLS 0-5 /hpf (0-5); UROBILINOGEN NORMAL (NORMAL); WHITE CELLS - URINE 0-5 /hpf (NEGATIVE)
[2019-07-03] MEDS ORDERED: FLOMAX0.4 MG PO (21:32)
[2019-07-03 22:20] VITALS: BP 151/69
== END 2019-07-03 22:20 | disposition home or self-care (01) ==
LOC: D.ER 17:08
PROVIDERS: Family Medicine
DX: R33.9 Retention of urine, unspecified (principal); E11.9 Type 2 diabetes mellitus without complications; I10 Essential (primary) hypertension; M81.0 Age-related osteoporosis without current pathological fracture; N40.0 Benign prostatic hyperplasia without lower urinary tract symptoms

== ENCOUNTER 2019-07-07 04:42 | Inpatient (IN) | payer MEDICARE, OTHER ==
[~2019-07-07] VITALS: Ht 177.8 cm; Wt 93.4 kg
[~2019-07-07 04:42] MED LIST changes: +FLOMAX0.4 MG PO
--- NOTE | 2019-07-07 05:15 | NUR ---
BLADDER SCANNER, 737ML.
--- NOTE | 2019-07-07 05:20 | NUR ---
PT'S CATHETER FLUSHED WITH STERILE NORMAL SALINE PER EDP ORDERS. 250ML DARK YELLOW URINE WITH SEDIMENT DRAINED. NEW LEG BAG PLACED PER EDP ORDER, ATTACHED TO RIGHT LEG. PT TOLERATED WELL.
[2019-07-07] MEDS ORDERED: MACROBID100 MG PO (05:55)
[2019-07-07 06:18] LABS: APPEARANCE TURBID (CLEAR); BILIRUBIN NEGATIVE (NEGATIVE); COLOR YELLOW (YELLOW); GLUCOSE NEGATIVE (NEGATIVE); KETONE NEGATIVE (NEGATIVE); NITRITE NEGATIVE (NEGATIVE); PROTEIN 3+ mg/dL (NEGATIVE); SPECIFIC GRAVITY 1.005 (1.005-1.020); UROBILINOGEN NORMAL (NORMAL)
[2019-07-07 06:20] LABS: BACTERIA MANY /hpf (NEGATIVE); EPITHELIAL CELLS 0-5 /hpf (0-5); TRIPLE PHOSPHATE CRYSTALS 0-5 /hpf (NONE SEEN)
--- NOTE | 2019-07-07 06:30 | NUR ---
PER EDP ORDERS, LEG BAG D/C'D. COUDE PLACEMENT ATTEMPTED X2 WHICH WERE UNSUCCESSFUL. EDP NOTIFIED. PERICARE PROVIDED, LINEN CHANGED. PT CHANGED INTO GOWN. PT REPOSITIONED IN BED X3 ASSIST.
--- NOTE | 2019-07-07 07:03 | NUR ---
BEDSIDE REPORT GIVEN TO STEVEN LEON
[2019-07-07 07:42] VITALS: BP 153/68
[2019-07-07 07:55] LABS: CALC OSMOLALITY 271 mosm/kg (275-300); CHLORIDE - SERUM 101 mmol/L (98-107); CREATININE - SERUM 0.9 mg/dL (0.6-1.3); POTASSIUM - SERUM 3.7 mmol/L (3.5-5.1); SODIUM 134 mmol/L (136-145); UREA NITROGEN 19 mg/dL (7-18); eGFR NON AFRICAN AMERICAN 86 mL/min (90-120)
[2019-07-07 08:00] LABS: GLUCOSE 141 mg/dL (74-106)
[2019-07-07 08:01] LABS: ALBUMIN 3.8 g/dL (3.4-5.0); ALKALINE PHOSPHATASE 74 U/L (46-116); ALT (SGPT) 26 U/L (10-68); BILIRUBIN - TOTAL 1.27 mg/dL (0.2-1.3); PROTEIN - SERUM 7.3 g/dL (6.4-8.2)
[2019-07-07 08:33] LABS: HEMOGLOBIN 16.6 g/dL (13.5-17.5); LYMPHOCYTES 6.8 % (15-50); MCH 30.8 pg (26.0-34.0); MCHC 34.6 g/dL (31.0-37.0); MCV 89.1 fL (80.0-100.0); NEUTROPHILS 83.5 % (40-80); RBC 5.39 10x6/uL (4.20-6.10); RDW 13.1 % (11.5-14.5); WBC 8.6 10x3/uL (4.8-10.8)
[2019-07-07 08:41] LABS: MEAN PLATELET VOLUME 10.67 fL (7.4-10.4)
[2019-07-07 08:42] LABS: PLATELET COUNT 83.6 10x3/uL (130-400)
[2019-07-07 09:21] LABS: PLATELET ESTIMATE DECREASED
[2019-07-07 09:54] VITALS: BP 134/58
--- NOTE | 2019-07-07 10:45 | OP ---
PATIENT NAME: DACIA MA MEDICAL RECORD: [id number] :37 LOCATION:D.M3 D.1205 ADMISSION DATE:07/07/19 SURGEON: NOLA DEAN MD DATE OF OPERATION: 07/07/2019 SURGEON: Nola Dean MD ANESTHESIA: TIVA by Melodie Hull CRNA. DIAGNOSES: Urinary retention due to bladder neck contracture, pyocystis. PROCEDURE: Cystoscopy, bladder neck incision, bladder clot evacuation, Sharma catheter insertion over a guidewire. FINDINGS: Very tight bladder neck stenosis. Bulbar urethral injury from Sharma catheter balloon in the penile urethra, pyocystis with very foul smelling urine. SPECIMENS: Urine for culture. BLOOD LOSS: None. CLINICAL HISTORY: This is an 83-year-old male, who has had a radical prostatectomy for [place] 9 out of 10 prostate cancer. He has a history of Agent [place] exposure in [place]. He also has neuropathy from the Agent Ulen exposure and he was performing self-intermittent catheterization. He developed bladder neck contractures and he is no longer able to perform self-intermittent catheterization. He went into urinary retention over the . Since I was in [place] at that time, I asked the patient to go to the [facility] Emergency Room as they would have a urologist anger control counselor and the urologist would be able to get a catheter into him. Apparently, they did not call the urologist, but instead the ER nurse at [facility] attempted to place the catheter herself. The patient says that she struggled for over an hour to do so. When he came to see me, he was still having trouble with drainage. He did not have any gross hematuria. I saw him yesterday. Overnight, he developed gross hematuria and clot urinary retention. The ER here could not get a catheter into him. He comes to have the cystoscopy performed, bladder neck incision performed, and the bladder evacuated. He has not been given any antibiotics. I asked the anesthesia not to give him any antibiotics until I have obtained urine for culture. DESCRIPTION OF PROCEDURE: The patient was given IV sedation. He was then placed into the lithotomy position and prepped and draped. The 21-British cystoscope with 30-degree lens was used for visualization. The penile urethra was clear until we reached the bulbar urethra, in which case there is trauma from the Sharma catheter balloon having been inflated here. Going past this into the bladder neck, there was an almost virtually complete obstruction of the bladder neck. I passed a Sensor wire through the lumen of the stricture at the bladder neck. The cystoscope was then removed and I switched over to the optic urethrotome with a 12-degree lens. An incision was made at the 12 o'clock position until finally we could get the scope through. Going into the bladder, the bladder urine was extremely cloudy, foul smelling, and has pus in it. Some of this urine was obtained for culture. The rest was then allowed to drain out. I used the Stackify evacuator to try to clean out the pus and any blood clot that were in the bladder. The optic urethrotome was then removed, leaving the Sensor wire in place in the bladder. Over the wire, we inserted a 24-British 3-way OPERATIVE REPORT [id number] ANILDACIA FLORES ugashik tip Sharma catheter. Once the catheter was in the bladder, we inflated the balloon with 10 cc of sterile water. There was no active bleeding and therefore, we capped off the inflow port of the 3-way Sharma catheter. We put the catheter to bag drainage. The wire was removed entirely. TRANSINT:[id number] Voice Confirmation ID: [id number] DOCUMENT ID: [id number] NOLA DEAN MD at 1045 CC: [id number] DICTATION DATE: 07/07/19 0955 PANTRY WORKER: 07/07/19 1040 ADM IN [facility] [address] [place] [address]
--- NOTE | 2019-07-07 13:31 | NUR ---
PT RESTING, EYES CLOSED. RR ARE EVEN AND UNLABORED. WCTM.
--- NOTE | 2019-07-07 15:19 | MORECARE ---
CASE MANAGEMENT DISCHARGE SUMMARY PATIENT: DACIA MA UNIT: [id number] ADM DATE: 07/07/19 AGE: 83 : 36 SEX: M ROOM/BED: D.1205 AUTHOR: RICARDO JULIEN PHYSICIAN: REFERRING PHYSICIAN: KAY POP MD DATE OF SERVICE: 07/07/19 Discharge Plan Patient Name: DACIA [facility] [facility] 1935 Planned Disposition: Home Anticipated Discharge Date: 07/08/19 Discharge Date: Expected LOS: 1 Initial Reviewer: [email or web address] Initial Review Date: 07/07/2019 Generated: 07/07/19 4:19 pm DCPIA - Discharge Planning Initial Assessment Updated by [email or web address]: Kathleen Martins on 07/07/19 3:14 pm * Is the patient Alert and Oriented? Yes * PCP Dr. Mims * Pharmacy [facility] in [place] * Preadmission Environment Home Alone * ADLs Independent * Equipment Cane * Community resources currently utilized None * Additional services required to return to the preadmission environment? No * Can the patient safely return to the preadmission environment? Yes * Has this patient been hospitalized within the prior 30 days at any hospital? No Coverage Notice Reviewer: [email or web address] - Kathleen Martins Notice Issued Date-Time: 07/07/2019 15:11 Notice Type: Medicare Outpatient Observation Notice Notice Delivered To: Patient Relationship to Patient: Self Rn Or Lvn Name: Delivery Method: HAND - Hand Delivered Fay Days: Prior Verbal Notification: Recipient Understood Notice: Yes Recipient Signature: Yes Med Rec Note Co-signed by Attending: Coverage Notice Comment: GARO explained, signed, given, copy placed in MR Patient Name: DACIA MA Page [phone] at 1519 All edits/amendments must be made on the electronic document DICTATION DATE: 07/07/191518 ELECTRONIC LAB TECHNICIAN: MANOJ 07/07/191518 RPT#: [id number] DC DATE: STATUS: ADM IN [facility] [address] [place] [address] END OF REPORT
--- NOTE | 2019-07-07 15:42 | MORECARE ---
CASE MANAGEMENT DISCHARGE SUMMARY PATIENT: DACIA MA UNIT: [id number] ADM DATE: 07/07/19 AGE: 83 : 36 SEX: M ROOM/BED: D.1205 AUTHOR: RICARDO JULIEN PHYSICIAN: REFERRING PHYSICIAN: KAY POP MD DATE OF SERVICE: 07/07/19 Discharge Plan Patient Name: DACIA MA Facility: [facility]:[place] : 1935 Planned Disposition: Home Anticipated Discharge Date: 07/08/19 Discharge Date: Expected LOS: 1 Initial Reviewer: [email or web address] Initial Review Date: 07/07/2019 Generated: 07/07/19 4:41 pm Comments DCP- Discharge Planning Updated by [id number]: Kathleen Martins on 07/07/19 2:[address] Patient Name: DACIA MA Admission Status: ER Accout number: [id number] Admission Date: 07-07-2019 : 1935 Admission Diagnosis: Attending: KAY POP Current LOS: 1 Anticipated DC Date: 07-08-2019 Planned Disposition: Home Primary Insurance: MEDICARE A & B Discharge Planning Comments: CM met with patient to discuss discharge planning, he is alone in the room. He is [place], although he does have his hearing aide in. He states he lives alone and feels it is a safe discharge to go back home. He states he will call someone to pick him up when discharged. He declines home health needs. He states "I have everything I need." CM will continue to follow and assist with discharge planning/needs. Skein Washer: Kathleen Martins DCPIA - Discharge Planning Initial Assessment Updated by [email or web address]: Kathleen Martins on 07/07/19 3:14 pm * Is the patient Alert and Oriented? Yes * PCP Dr. Mims * Pharmacy [facility] in [place] * Preadmission Environment Home Alone * ADLs Independent * Equipment Cane * Community resources currently utilized None * Additional services required to return to the preadmission environment? No * Can the patient safely return to the preadmission environment? Yes * Has this patient been hospitalized within the prior 30 days at any hospital? No Coverage Notice Reviewer: [id number] - Kathleen Martins Notice Issued Date-Time: 07/07/2019 15:11 Notice Type: Medicare Outpatient Observation Notice Notice Delivered To: Patient Relationship to Patient: Self Woodwind Instrument Repairer Name: Delivery Method: HAND - Hand Delivered Fay Days: Prior Verbal Notification: Recipient Understood Notice: Yes Recipient Signature: Yes Med Rec Note Co-signed by Attending: Coverage Notice Comment: GARO explained, signed, given, copy placed in MR Last DP export: 07/07/19 2:19 p Patient Name: DACIA MA Page [phone] at 1542 All edits/amendments must be made on the electronic document DICTATION DATE: 07/07/19 154 MACHINE HEEL BUILDER: MANOJ 07/07/19 154 RPT#: [id number] DC DATE: STATUS: ADM IN [facility] [address] [place] [address] END OF REPORT
[2019-07-07 20:08] VITALS: BP 119/53
--- NOTE | 2019-07-07 22:56 | NUR ---
ASSESSED AT THE BEGINNING OF THE SHIFT. PT IS ALERT AND ORIENTED, ABLE TO VERBALIZE NEEDS. HIS MARTINEZ IS PATENT AND DRAINING BLOODY URINE. WHEN WE GAVE HS MEDS HIS BLOOD SUGAR WAS 104. HE IS RESTING WELL WITH THE TV OFF.
[2019-07-08] VITALS: BP 113/50
[2019-07-08 04:00] VITALS: BP 121/57
[2019-07-08 05:54] LABS: BASOPHILS 0.1 % (0-2); EOSINOPHILS 0.3 % (0-7); IMMATURE GRANULOCYTES 0.2 % (0-5); LYMPHOCYTES 8.6 % (15-50); MCH 30.3 pg (26.0-34.0); MCHC 33.1 g/dL (31.0-37.0); MEAN PLATELET VOLUME 11.9 fL (7.4-10.4); MONOCYTES 11.4 % (2-11); NEUTROPHILS 79.4 % (40-80); PLATELET COUNT 67 10x3/uL (130-400); RDW 13.2 % (11.5-14.5); WBC 8.9 10x3/uL (4.8-10.8)
[2019-07-08 06:11] LABS: CALC OSMOLALITY 273 mosm/kg (275-300); CARBON DIOXIDE 23.2 mmol/L (21.0-32.0); CHLORIDE - SERUM 104 mmol/L (98-107); CREATININE - SERUM 0.7 mg/dL (0.6-1.3); GLUCOSE 96 mg/dL (74-106); POTASSIUM - SERUM 3.3 mmol/L (3.5-5.1); SODIUM 137 mmol/L (136-145); UREA NITROGEN 13 mg/dL (7-18); eGFR NON AFRICAN AMERICAN > 90 mL/min (90-120)
[2019-07-08 06:22] LABS: HEMOGLOBIN 11.6 g/dL (13.5-17.5); MCV 91.4 fL (80.0-100.0); RBC 3.83 10x6/uL (4.20-6.10)
--- NOTE | 2019-07-08 07:18 | NUR ---
PT RESTING, EYES CLOSED. RR ARE EVEN AND UNLABORED. IV INFUSING NS AT 100ML/HR TO LEFT FA. POTASSIUM TREATED BY NIGHTSHIFT. ANDREINA.
[2019-07-08 08:00] VITALS: BP 124/72
[2019-07-08 08:48] LABS: % SATURATION 8 % (15-55); IRON 17 ug/dl (35-150); TOTAL IRON BIND CAPACITY 190 ug/dl (260-445); UNSAT IRON BIND CAPACITY 173 ug/dl (150-375)
[2019-07-08 11:59] LABS: PLATELET ESTIMATE DECREASED
[2019-07-08 12:01] LABS: PLATELET MORPHOLOGY PLT CLUMPS PRESENT; ROULEAUX OCC; SMUDGE CELLS OCC
[2019-07-08 13:12] VITALS: Ht 177.8 cm; Wt 93.4 kg
[2019-07-08 16:24] LABS: HEMATOCRIT 34.9 % (42.0-54.0); HEMOGLOBIN 11.7 g/dL (13.5-17.5)
[2019-07-08 16:31] LABS: APTT 34.6 SECONDS (22.8-39.4); INR 1.31 (0.85-1.17); PROTIME 15.7 SECONDS (11.6-15.0)
[2019-07-08 20:05] VITALS: BP 135/61
[2019-07-09] VITALS: BP 107/55
--- NOTE | 2019-07-09 03:22 | NUR ---
ASSESSED AT THE BEGINNING OF THE SHIFT. PT IS ALERT AND ORIENTED, ABLE TO VERBALIZE NEEDS, BUT VERY HARD OF HEARING. BLOOD SUGAR WAS 100 AND NO INSULIN WAS GIVEN. AT BEDTIME HE RECEIVED HIS NORCO FOR JUST GENERAL DISCOMFORT.. MARTINEZ BAG IS STILL DRAINING WELL WITH KIM COLORED URINE AND SOME SMALL STREAKS OF BLOOD. HE IS ABLE TO TURN AND REPOSITION HIMSELF. THE TELEMETRY SHOWS 80'S SR. AT THIS TIME HE IS ASLEEP WITH NO DISTRESS NOTED.
[2019-07-09 04:00] VITALS: BP 115/53
[2019-07-09 05:49] LABS: BASOPHILS 0.1 % (0-2); EOSINOPHILS 2.6 % (0-7); HEMATOCRIT 33.9 % (42.0-54.0); HEMOGLOBIN 11.1 g/dL (13.5-17.5); IMMATURE GRANULOCYTES 0.4 % (0-5); LYMPHOCYTES 12.5 % (15-50); MCHC 32.7 g/dL (31.0-37.0); MCV 91.6 fL (80.0-100.0); MEAN PLATELET VOLUME 10.5 fL (7.4-10.4); MONOCYTES 11.7 % (2-11); NEUTROPHILS 72.7 % (40-80); RDW 13.2 % (11.5-14.5); WBC 7.8 10x3/uL (4.8-10.8)
[2019-07-09 05:52] LABS: PLATELET COUNT 113 10x3/uL (130-400)
[2019-07-09 06:18] LABS: CALC OSMOLALITY 277 mosm/kg (275-300); CALCIUM 8.1 mg/dL (8.5-10.1); CARBON DIOXIDE 25.7 mmol/L (21.0-32.0); CHLORIDE - SERUM 105 mmol/L (98-107); CREATININE - SERUM 0.7 mg/dL (0.6-1.3); GLUCOSE 94 mg/dL (74-106); POTASSIUM - SERUM 3.7 mmol/L (3.5-5.1); SODIUM 140 mmol/L (136-145); UREA NITROGEN 10 mg/dL (7-18); eGFR NON AFRICAN AMERICAN > 90 mL/min (90-120)
[2019-07-09 07:56] VITALS: BP 122/78
--- NOTE | 2019-07-09 09:21 | NUR ---
PT STATES HE IS NOT A DIABETIC AND WANTS FSBS TO BE DC'D. IN PT'S CHART IT DOES SAY HE IS A DIABETIC. CALLED AND SPOKE KACI YEH ABOUT THIS AND SHE ASKED IF PT BS HAS BEEN HIGH. I STATED "NO THEY HAVE NOT HAD TO TREAT HIM AT ALL." SHE VERBALIZED UNDERSTANDING AND STATED "ALRIGHT I'LL STOP IT(FSBS)."
--- NOTE | 2019-07-09 11:37 | NUR ---
SPOKE WITH RADHA YEH AND SHE STATES PT CAN NOT DISCHARGE YET BECAUSE PT IS STILL RUNNING FEVER AND THEY ARE WAITING ON HIS URINE SENSITIVITYS. I VERBALIZED UNDERSTANDING.
[2019-07-09 11:57] VITALS: BP 148/64
--- NOTE | 2019-07-09 19:06 | NUR ---
I have reviewed this patient and I concur with the Shift Assessment completed by the Licensed Practical Nurse today this shift.
[2019-07-09 19:23] VITALS: BP 110/68
--- NOTE | 2019-07-09 19:23 | NUR ---
PATIENT RESTING IN BED WITH NO S/S OF DISTRESS AND DENIES NEEDS AT THIS TIME. VSS. BED IN LOWEST POSITION AND CALL LIGHT WITHIN REACH. ENCOURAGED THE PATIENT TO CALL IF HE HAS NEEDS. WILL CONTINUE TO MONITOR.
--- NOTE | 2019-07-09 20:28 | NUR ---
PATIENT RESTING IN BED AND DENIES NEEDS AT THIS TIME. ADMINISTERED MEDS PER ORDERS. PATIENT DENIES OTHER NEEDS AT THIS TIME. BED IN LOWEST POSITION AND CALL LIGHT WITHIN REACH. ENCOURAGED THE PATIENT TO CALL IF HE HAS NEEDS. WILL CONTINUE TO MONITOR.
--- NOTE | 2019-07-09 23:02 | NUR ---
PATIENT RESTING IN BED WITH EYES CLOSED AND NO S/S OF DISTRESS. BED IN LOWEST POSITION AND CALL LIGHT WITHIN REACH. WILL CONTINUE TO MONITOR.
[2019-07-09 23:36] VITALS: BP 155/68
--- NOTE | 2019-07-10 03:47 | NUR ---
PATIENT RESTING IN BED WITH EYES CLOSED AND NO S/S OF DISTRESS. WILL CONTINUE TO MONITOR.
[2019-07-10 04:48] VITALS: BP 140/64
[2019-07-10 05:32] LABS: BASOPHILS 0 % (0-2); EOSINOPHILS 3.5 % (0-7); HEMATOCRIT 34.2 % (42.0-54.0); HEMOGLOBIN 11.4 g/dL (13.5-17.5); IMMATURE GRANULOCYTES 0.4 % (0-5); LYMPHOCYTES 13.3 % (15-50); MCH 30.2 pg (26.0-34.0); MCHC 33.3 g/dL (31.0-37.0); MCV 90.5 fL (80.0-100.0); MEAN PLATELET VOLUME 11.2 fL (7.4-10.4); MONOCYTES 10.2 % (2-11); NEUTROPHILS 72.6 % (40-80); PLATELET COUNT 102 10x3/uL (130-400); RBC 3.78 10x6/uL (4.20-6.10); RDW 13.1 % (11.5-14.5); WBC 7.4 10x3/uL (4.8-10.8)
[2019-07-10 05:54] LABS: CALC OSMOLALITY 274 mosm/kg (275-300); CARBON DIOXIDE 24.3 mmol/L (21.0-32.0); CHLORIDE - SERUM 105 mmol/L (98-107); CREATININE - SERUM 0.6 mg/dL (0.6-1.3); GLUCOSE 101 mg/dL (74-106); POTASSIUM - SERUM 3.4 mmol/L (3.5-5.1); SODIUM 138 mmol/L (136-145); UREA NITROGEN 9 mg/dL (7-18); eGFR NON AFRICAN AMERICAN > 90 mL/min (90-120)
[2019-07-10 07:28] VITALS: BP 135/63
--- NOTE | 2019-07-10 07:57 | NUR ---
PT SITTING UP IN BED. AXO. RR EVEN AND UNLABORED. DENIES NEEDS OR PAIN AT THIS TIME. VSS. MARTINEZ WITH DARK, YELLOW URINE NOTED. LEFT FOREARM IV WITH NS INFUSING @ 100ML/HR. ASSESSMENT COMPLETE. BED IN LOWEST POSITION. CALL LIGHT WITHIN REACH. WILL CONTINUE TO MONITOR.
[2019-07-10] MEDS ORDERED: MACRODANTIN100 MG PO (08:28)
--- NOTE | 2019-07-10 09:48 | MORECARE ---
CASE MANAGEMENT DISCHARGE SUMMARY PATIENT: DACIA MA UNIT: [id number] ADM DATE: 07/08/19 AGE: 83 : 36 SEX: M ROOM/BED: D.1205 AUTHOR: WILY,DOC PHYSICIAN: REFERRING PHYSICIAN: KAY POP MD DATE OF SERVICE: 07/10/19 Discharge Plan Patient Name: DACIA MA Facility: [facility]:[place] : 1935 Planned Disposition: Home Anticipated Discharge Date: 07/08/19 Discharge Date: Expected LOS: 1 Initial Reviewer: [email or web address] Initial Review Date: 07/07/2019 Generated: 07/10/19 10:48 am DCP- Discharge Planning Updated by [id number]: Kathleen Martins on 07/07/19 2:[address] Patient Name: DACIA MA Admission Status: ER Accout number: [id number] Admission Date: 07-07-2019 : 1935 Admission Diagnosis: Attending: KAY POP Current LOS: 1 Anticipated DC Date: 07-08-2019 Planned Disposition: Home Primary Insurance: MEDICARE A & B Discharge Planning Comments: CM met with patient to discuss discharge planning, he is alone in the room. He is [place], although he does have his hearing aide in. He states he lives alone and feels it is a safe discharge to go back home. He states he will call someone to pick him up when discharged. He declines home health needs. He states "I have everything I need." CM will continue to follow and assist with discharge planning/needs. Lithoduplicator Operator: Kathleen Martins DCPIA - Discharge Planning Initial Assessment Updated by [id number]: Kathleen Martins on 07/07/19 3:14 pm * Is the patient Alert and Oriented? Yes * PCP Dr. Mims * Pharmacy [facility] in [place] * Preadmission Environment Home Alone * ADLs Independent * Equipment Cane * Community resources currently utilized None * Additional services required to return to the preadmission environment? No * Can the patient safely return to the preadmission environment? Yes * Has this patient been hospitalized within the prior 30 days at any hospital? No External Providers External Provider: [facility] Next Contact Date: Service Request Date: Service Type: Resolution: Reviewer: Comments: Coverage Notice Reviewer: [email or web address] Ramos Kathleen Martins Notice Issued Date-Time: 07/07/2019 15:11 Notice Type: Medicare Outpatient Observation Notice Notice Delivered To: Patient Relationship to Patient: Self Wrapper Hand Name: Delivery Method: HAND - Hand Delivered Fay Days: Prior Verbal Notification: Recipient Understood Notice: Yes Recipient Signature: Yes Med Rec Note Co-signed by Attending: Coverage Notice Comment: GARO explained, signed, given, copy placed in MR Reviewer: [id number] Ramos Sellers Notice Issued Date-Time: 07/10/2019 9:41 Notice Type: IM Discharge Notice Notice Delivered To: Patient Relationship to Patient: Wrapper Hand Name: Delivery Method: HAND - Hand Delivered Fay Days: Prior Verbal Notification: Recipient Understood Notice: Yes Recipient Signature: Yes Med Rec Note Co-signed by Attending: Coverage Notice Comment: Reviewer: [id number] Ramos Sellers Notice Issued Date-Time: 07/10/2019 9:41 Notice Type: Patient Choice Letter Notice Delivered To: Patient Relationship to Patient: Wrapper Hand Name: Delivery Method: HAND - Hand Delivered Fay Days: Prior Verbal Notification: Recipient Understood Notice: Yes Recipient Signature: Yes Med Rec Note Co-signed by Attending: Coverage Notice Comment: Last DP export: 07/07/19 2:42 p Patient Name: DACIA MA Page [id number] at 0948 All edits/amendments must be made on the electronic document DICTATION DATE: 07/10/19946 POMPOM MAKER: MANOJ 07/10/19946 RPT#: [id number] DC DATE: STATUS: ADM IN [facility] [address] [place] [address] END OF REPORT
[2019-07-10] MEDS ORDERED: ZYVOX600 MG PO (10:00)
--- NOTE | 2019-07-10 10:17 | MORECARE ---
CASE MANAGEMENT DISCHARGE SUMMARY PATIENT: DACIA MA UNIT: [id number] ADM DATE: 07/08/19 AGE: 83 : 36 SEX: M ROOM/BED: D.1205 AUTHOR: RICARDO JULIEN PHYSICIAN: REFERRING PHYSICIAN: KAY POP MD DATE OF SERVICE: 07/10/19 Discharge Plan Patient Name: DACIA MA Facility: [facility]:[place] : 1935 Planned Disposition: Home Anticipated Discharge Date: 07/08/19 Discharge Date: Expected LOS: 1 Initial Reviewer: [email or web address] Initial Review Date: 07/07/2019 Generated: 07/10/19 11:16 am Comments DCP- Discharge Planning Updated by [email or web address]: Chloe Sellers on 07/10/19 9:[address] Patient Name: DACIA MA Admission Status: ER Accout number: [id number] Admission Date: 07-08-2019 : 1935 Admission Diagnosis: Attending: KAY POP Current LOS: 2 Anticipated DC Date: 07-08-2019 Planned Disposition: Home Primary Insurance: MEDICARE A & B Discharge Planning Comments: I met WITH PATIENT AND HE WANTS [facility], I FAXED REFERRAL AND NOTIFIED THEM. JENIFFER AND IMM SIGNED. PATIENT STATES SOMEONE WILL PICK HIM UP AT TIME OF DISCHARGE. IS TO DC TODAY. Packaging Clerk: Chloe Sellers DCP- Discharge Planning Updated by [email or web address]: Kathleen Martins on 07/07/19 2:[address] Patient Name: DACIA MA Admission Status: ER Accout number: [id number] Admission Date: 07-07-2019 : 1935 Admission Diagnosis: Attending: KAY POP Current LOS: 1 Anticipated DC Date: 07-08-2019 Planned Disposition: Home Primary Insurance: MEDICARE A & B Discharge Planning Comments: CM met with patient to discuss discharge planning, he is alone in the room. He is [place], although he does have his hearing aide in. He states he lives alone and feels it is a safe discharge to go back home. He states he will call someone to pick him up when discharged. He declines home health needs. He states "I have everything I need." CM will continue to follow and assist with discharge planning/needs. Packaging Clerk: Kathleen Martins DCPIA - Discharge Planning Initial Assessment Updated by [email or web address]: Kathleen Martins on 07/07/19 3:14 pm * Is the patient Alert and Oriented? Yes * PCP Dr. Mims * Pharmacy [facility] in [place] * Preadmission Environment Home Alone * ADLs Independent * Equipment Cane * Community resources currently utilized None * Additional services required to return to the preadmission environment? No * Can the patient safely return to the preadmission environment? Yes * Has this patient been hospitalized within the prior 30 days at any hospital? No Coverage Notice Reviewer: [id number] Ramos Sellers Notice Issued Date-Time: 07/10/2019 9:41 Notice Type: IM Discharge Notice Notice Delivered To: Patient Relationship to Patient: Tree Care Foreman Name: Delivery Method: HAND - Hand Delivered Fay Days: Prior Verbal Notification: Recipient Understood Notice: Yes Recipient Signature: Yes Med Rec Note Co-signed by Attending: Coverage Notice Comment: Reviewer: [id number] Sellers Notice Issued Date-Time: 07/10/2019 9:41 Notice Type: Patient Choice Letter Notice Delivered To: Patient Relationship to Patient: Tree Care Foreman Name: Delivery Method: HAND - Hand Delivered Fay Days: Prior Verbal Notification: Recipient Understood Notice: Yes Recipient Signature: Yes Med Rec Note Co-signed by Attending: Coverage Notice Comment: Reviewer: [id number] - Kathleen Martisn Notice Issued Date-Time: 07/07/2019 15:11 Notice Type: Medicare Outpatient Observation Notice Notice Delivered To: Patient Relationship to Patient: Self Tree Care Foreman Name: Delivery Method: HAND - Hand Delivered Fay Days: Prior Verbal Notification: Recipient Understood Notice: Yes Recipient Signature: Yes Med Rec Note Co-signed by Attending: Coverage Notice Comment: GARO explained, signed, given, copy placed in MR Last DP export: 07/10/19 8:48 a Patient Name: DACIA MA Page 85095 at 1017 All edits/amendments must be made on the electronic document DICTATION DATE: 07/10/19 1016 PIGMENT PROCESSOR: MANOJ 07/10/19 1016 RPT#: [id number] [place] DATE: STATUS: ADM IN [facility] [address] [place] [address] END OF REPORT
--- NOTE | 2019-07-10 10:19 | NUR ---
RX FOR LINEZOLID ON CHART FOR PT. PER DR DEAN. PER RADHA SALINAS APN, WILL CANCEL RX FOR NITROFURANTOIN. CALL[facility] [address] AND CANCELLED.
[2019-07-10 10:42] LABS: POTASSIUM - SERUM 3.9 mmol/L (3.5-5.1)
--- NOTE | 2019-07-10 11:04 | NUR ---
I have reviewed this patient and I concur with the Shift Assessment completed by the Licensed Practical Nurse today this shift.
--- NOTE | 2019-07-10 11:49 | NUR ---
D/C INSTRUCTIONS RECIEVED. EDUCATION ON MARTINEZ CARE COMPLETE. PT WILL HAVE HOME HEALTH TO ASSIST WITH [facility] CARE. AWAITING PTs RIDE FOR FURTHER D/C.
--- NOTE | 2019-07-10 13:13 | NUR ---
MORE EDUCATION PROVIDED FOR [facility]ART[facility] CARE. PT VERBALIZED UNDERSTANDING. D/C INSTRUCTIONS REVIEWED. DENIES FURTHER QUWSTIONS AT THIS TIME. IV D/C WITH CATHETER TIP INTACT. DRESSING PLACED OVER SITE, CDI. PT LEFT WITH ALL BELONGINGS VIA WHEELCHAIR TO PERSONAL VEHICLE.
--- NOTE | 2019-07-10 16:05 | MORECARE ---
CASE MANAGEMENT DISCHARGE SUMMARY PATIENT: DACIA MA UNIT: [id number] ADM DATE: 07/08/19 AGE: 83 : 36 SEX: M ROOM/BED: D.1205 AUTHOR: RICARDO JULIEN PHYSICIAN: REFERRING PHYSICIAN: KAY POP MD DATE OF SERVICE: 07/10/19 Discharge Plan Patient Name: DACIA MA Facility: [facility]:[place] : 1935 Planned Disposition: Home Anticipated Discharge Date: 07/08/19 Discharge Date: 07/10/2019 Expected LOS: 1 Initial Reviewer: [email or web address] Initial Review Date: 07/07/2019 Generated: 07/10/19 5:04 pm Comments DCP- Discharge Planning Updated by [id number]: Chloe Sellers on 07/10/19 9:[address] Patient Name: DACIA MA Admission Status: ER Accout number: [id number] Admission Date: 07-08-2019 : 1935 Admission Diagnosis: Attending: KAY POP Current LOS: 2 Anticipated DC Date: 07-08-2019 Planned Disposition: Home Primary Insurance: MEDICARE A & B Discharge Planning Comments: I met WITH PATIENT AND HE WANT[facility], I FAXED REFERRAL AND NOTIFIED THEM. JENIFFER AND IMM SIGNED. PATIENT STATES SOMEONE WILL PICK HIM UP AT TIME OF DISCHARGE. IS TO DC TODAY. Quality Assurance Supervisor Trim: Chloe Sellers DCP- Discharge Planning Updated by [id number]: Kathleen Martins on 07/07/19 2:[address] Patient Name: DACIA MA Admission Status: ER Accout number: [id number] Admission Date: 07-07-2019 : 1935 Admission Diagnosis: Attending: KAY POP Current LOS: 1 Anticipated DC Date: 07-08-2019 Planned Disposition: Home Primary Insurance: MEDICARE A & B Discharge Planning Comments: CM met with patient to discuss discharge planning, he is alone in the room. He is [place], although he does have his hearing aide in. He states he lives alone and feels it is a safe discharge to go back home. He states he will call someone to pick him up when discharged. He declines home health needs. He states "I have everything I need." CM will continue to follow and assist with discharge planning/needs. Quality Assurance Supervisor Trim: Kathleen Lakshmi DCPIA - Discharge Planning Initial Assessment Updated by [id number]: Kathleen Martins on 07/07/19 3:14 pm * Is the patient Alert and Oriented? Yes * PCP Dr. Mims * Pharmacy [facility] in [place] * Preadmission Environment Home Alone * ADLs Independent * Equipment Cane * Community resources currently utilized None * Additional services required to return to the preadmission environment? No * Can the patient safely return to the preadmission environment? Yes * Has this patient been hospitalized within the prior 30 days at any hospital? No Coverage Notice Reviewer: [id number] Ramos Martins Notice Issued Date-Time: 07/07/2019 15:11 Notice Type: Medicare Outpatient Observation Notice Notice Delivered To: Patient Relationship to Patient: Self Side Framer Name: Delivery Method: HAND - Hand Delivered Fay Days: Prior Verbal Notification: Recipient Understood Notice: Yes Recipient Signature: Yes Med Rec Note Co-signed by Attending: Coverage Notice Comment: GARO explained, signed, given, copy placed in MR Reviewer: [id number] Ramos Sellers Notice Issued Date-Time: 07/10/2019 9:41 Notice Type: IM Discharge Notice Notice Delivered To: Patient Relationship to Patient: Side Framer Name: Delivery Method: HAND - Hand Delivered Fay Days: Prior Verbal Notification: Recipient Understood Notice: Yes Recipient Signature: Yes Med Rec Note Co-signed by Attending: Coverage Notice Comment: Reviewer: [id number] Sellers Notice Issued Date-Time: 07/10/2019 9:41 Notice Type: Patient Choice Letter Notice Delivered To: Patient Relationship to Patient: Side Framer Name: Delivery Method: HAND - Hand Delivered Fay Days: Prior Verbal Notification: Recipient Understood Notice: Yes Recipient Signature: Yes Med Rec Note Co-signed by Attending: Coverage Notice Comment: Last DP export: 07/10/19 9:17 a Patient Name: DACIA MA Page [phone] at 1605 All edits/amendments must be made on the electronic document DICTATION DATE: 07/10/19 1604 DISABILITY ATTORNEY: MANOJ 07/10/19 1604 RPT#: [id number] DC DATE:07/10/19 STATUS: DIS IN [facility] [address] [place] [address] END OF REPORT
== END 2019-07-10 13:19 | disposition home health service (06) | DRG 699 ==
LOC: D.ER 04:42 → D.M3 07:15 → D.ER 07:45 → OBSVTIME 07:50 → D.M3 07-08 11:25
PROVIDERS: Family Medicine; Internal Medicine Hematology & Oncology; Urology; ADMIT Internal Medicine Nephrology; ATTEND Internal Medicine Nephrology
PROC: 0TCB8ZZ Extirpation of Matter from Bladder, Via Natural or Artificial Opening Endoscopic (ICD-10-PCS; principal; 2019-07-07 14:00)
PROC: 0T9B80Z Drainage of Bladder with Drainage Device, Via Natural or Artificial Opening Endoscopic (ICD-10-PCS; 2019-07-07 14:00)
DX: T83.098A Other mechanical complication of other urinary catheter, initial encounter (principal); N17.9 Acute kidney failure, unspecified; E87.1 Hypo-osmolality and hyponatremia; N13.8 Other obstructive and reflux uropathy; N39.0 Urinary tract infection, site not specified; Y84.9 Medical procedure, unspecified as the cause of abnormal reaction of the patient, or of later complication, without mention of misadventure at the time of the procedure; E11.9 Type 2 diabetes mellitus without complications; I10 Essential (primary) hypertension; N32.0 Bladder-neck obstruction; D69.6 Thrombocytopenia, unspecified; N40.1 Benign prostatic hyperplasia with lower urinary tract symptoms; F41.8 Other specified anxiety disorders; Z85.46 Personal history of malignant neoplasm of prostate; B95.2 Enterococcus as the cause of diseases classified elsewhere

== ENCOUNTER 2019-07-15 22:34 | Emergency (ER) | payer MEDICARE, OTHER ==
[~2019-07-15] VITALS: Ht 177.8 cm; Wt 90.0 kg
[~2019-07-15 22:34] MED LIST changes: +MACROBID100 MG PO; +MACRODANTIN100 MG PO; +ZYVOX600 MG PO
[2019-07-15 22:38] VITALS: Ht 177.8 cm; Wt 90.0 kg
[2019-07-15 23:04] LABS: BASOPHILS 0.2 % (0-2); EOSINOPHILS 3.3 % (0-7); HEMATOCRIT 34.8 % (42.0-54.0); HEMOGLOBIN 11.3 g/dL (13.5-17.5); IMMATURE GRANULOCYTES 1.1 % (0-5); LYMPHOCYTES 16.8 % (15-50); MCH 29.7 pg (26.0-34.0); MCHC 32.5 g/dL (31.0-37.0); MCV 91.3 fL (80.0-100.0); MEAN PLATELET VOLUME 9.5 fL (7.4-10.4); MONOCYTES 10.5 % (2-11); NEUTROPHILS 68.1 % (40-80); RBC 3.81 10x6/uL (4.20-6.10); WBC 8.7 10x3/uL (4.8-10.8)
[2019-07-15 23:05] LABS: PLATELET COUNT 169 10x3/uL (130-400)
[2019-07-15 23:12] LABS: CALC OSMOLALITY 268 mosm/kg (275-300); CALCIUM 8.6 mg/dL (8.5-10.1); CARBON DIOXIDE 28.1 mmol/L (21.0-32.0); CHLORIDE - SERUM 101 mmol/L (98-107); CREATININE - SERUM 0.9 mg/dL (0.6-1.3); GLUCOSE 101 mg/dL (74-106); SODIUM 135 mmol/L (136-145); UREA NITROGEN 9 mg/dL (7-18); eGFR NON AFRICAN AMERICAN 86 mL/min (90-120)
[2019-07-15 23:14] LABS: COLOR YELLOW (YELLOW)
[2019-07-15 23:15] LABS: APPEARANCE CLEAR (CLEAR); BACTERIA NONE SEEN /hpf (NEGATIVE); BILIRUBIN NEGATIVE (NEGATIVE); EPITHELIAL CELLS NSEEN /hpf (0-5); GLUCOSE NEGATIVE (NEGATIVE); KETONE NEGATIVE (NEGATIVE); NITRITE NEGATIVE (NEGATIVE); PROTEIN NEGATIVE (NEGATIVE); SPECIFIC GRAVITY 1.005 (1.005-1.020); UROBILINOGEN NORMAL (NORMAL); WHITE CELLS - URINE 0-5 /hpf (NEGATIVE)
[2019-07-15 23:17] LABS: ALBUMIN 3.1 g/dL (3.4-5.0); ALKALINE PHOSPHATASE 72 U/L (46-116); ALT (SGPT) 41 U/L (10-68); BILIRUBIN - TOTAL 0.32 mg/dL (0.2-1.3); PROTEIN - SERUM 6.5 g/dL (6.4-8.2)
[2019-07-16 00:38] VITALS: BP 120/51
== END 2019-07-16 00:38 | disposition home or self-care (01) ==
LOC: D.ER 22:34
PROVIDERS: Family Medicine
DX: R31.9 Hematuria, unspecified (principal); T81.9XXA Unspecified complication of procedure, initial encounter; E11.9 Type 2 diabetes mellitus without complications; I10 Essential (primary) hypertension; R19.7 Diarrhea, unspecified; R42 Dizziness and giddiness

== ENCOUNTER → 2019-07-25 17:08 | Outpatient (CLI) | payer MEDICARE, OTHER ==
[2019-07-15 22:38] VITALS: BMI 28.4
== END | disposition home or self-care (01) ==
LOC: D.LABREF 17:08
PROVIDERS: ATTEND Urology
DX: R31.9 Hematuria, unspecified (principal)

== ENCOUNTER 2019-08-16 15:45 | Inpatient (IN) | payer MEDICARE, OTHER ==
[~2019-08-16] VITALS: Ht 177.8 cm; Wt 90.7 kg
[2019-08-16 16:14] LABS: BASOPHILS 0.3 % (0-2); EOSINOPHILS 2.8 % (0-7); HEMATOCRIT 34.5 % (42.0-54.0); HEMOGLOBIN 11.3 g/dL (13.5-17.5); IMMATURE GRANULOCYTES 0.5 % (0-5); LYMPHOCYTES 21.5 % (15-50); MCHC 32.8 g/dL (31.0-37.0); MCV 91.5 fL (80.0-100.0); MEAN PLATELET VOLUME 9.4 fL (7.4-10.4); MONOCYTES 10.5 % (2-11); NEUTROPHILS 64.4 % (40-80); PLATELET COUNT 163 10x3/uL (130-400); RBC 3.77 10x6/uL (4.20-6.10); RDW 14.3 % (11.5-14.5); WBC 5.7 10x3/uL (4.8-10.8)
[2019-08-16 16:23] LABS: APTT 29.6 SECONDS (22.8-39.4); INR 1.08 (0.85-1.17); PROTIME 13.9 SECONDS (11.6-15.0)
[2019-08-16 16:37] LABS: CALC OSMOLALITY 277 mosm/kg (275-300); CALCIUM 8.5 mg/dL (8.5-10.1); CARBON DIOXIDE 27.9 mmol/L (21.0-32.0); CHLORIDE - SERUM 103 mmol/L (98-107); CREATININE - SERUM 0.8 mg/dL (0.6-1.3); GLUCOSE 103 mg/dL (74-106); POTASSIUM - SERUM 3.8 mmol/L (3.5-5.1); SODIUM 140 mmol/L (136-145); UREA NITROGEN 9 mg/dL (7-18); eGFR NON AFRICAN AMERICAN > 90 mL/min (90-120)
[2019-08-16 16:54] LABS: ALBUMIN 3.4 g/dL (3.4-5.0); ALKALINE PHOSPHATASE 66 U/L (46-116); ALT (SGPT) 21 U/L (10-68); BILIRUBIN - TOTAL 0.71 mg/dL (0.2-1.3); CKMB 2.1 U/L (0.0-3.6); CREATINE KINASE 236 UL (21-232); MAGNESIUM - SERUM 2.1 mg/dL (1.8-2.4); PROTEIN - SERUM 6.7 g/dL (6.4-8.2)
[2019-08-16 16:58] LABS: TROPONIN-I < 0.017 ng/mL (0.000-0.060)
--- NOTE | 2019-08-16 17:22 | NUR ---
PT STOOD AT BS WITH ASSISTANCE. VOIDED VIA URINAL, URINE SPEC OBTINED, LABELED AT BS AND SENT TO LAB
[2019-08-16 17:31] LABS: APPEARANCE CLEAR (CLEAR); BILIRUBIN NEGATIVE (NEGATIVE); COLOR YELLOW (YELLOW); GLUCOSE NEGATIVE (NEGATIVE); KETONE NEGATIVE (NEGATIVE); NITRITE POSITIVE (NEGATIVE); PROTEIN 1+ mg/dL (NEGATIVE); RED CELLS - URINE 0-5 /hpf (0-5); SPECIFIC GRAVITY 1.025 (1.005-1.020); UROBILINOGEN NORMAL (NORMAL); WHITE CELLS - URINE >50 /hpf (NEGATIVE)
[2019-08-16 17:32] LABS: BACTERIA MODERATE /hpf (NEGATIVE)
[2019-08-16 17:45] VITALS: BP 151/69
[2019-08-16 20:31] VITALS: BP 123/66; BMI 28.7
--- NOTE | 2019-08-17 00:11 | NUR ---
CHANGED PATIENTS SHEETS AND GOWN. PATIENT STATES HE REFUSES TO WEAR NON-SLIP SOCKS BECAUSE OF HIS NEUROPATHY. PATIENT DOES NOT HAVE ANY FURTHER NEEDS AT THIS TIME. BED RIALS X2. CALL LIGHT AND BEDSIDE TABLE WITHIN REACH.
[2019-08-17 00:30] VITALS: BP 126/69
[2019-08-17 05:30] VITALS: BP 135/56
[2019-08-17 05:57] LABS: BASOPHILS 0.4 % (0-2); EOSINOPHILS 3.4 % (0-7); HEMOGLOBIN 10.8 g/dL (13.5-17.5); IMMATURE GRANULOCYTES 0.5 % (0-5); LYMPHOCYTES 16.3 % (15-50); MCH 29.9 pg (26.0-34.0); MCHC 32.7 g/dL (31.0-37.0); MCV 91.4 fL (80.0-100.0); MEAN PLATELET VOLUME 10.1 fL (7.4-10.4); MONOCYTES 13.3 % (2-11); NEUTROPHILS 66.1 % (40-80); PLATELET COUNT 151 10x3/uL (130-400); RBC 3.61 10x6/uL (4.20-6.10); WBC 5.6 10x3/uL (4.8-10.8)
[2019-08-17 06:22] LABS: ALBUMIN 3.1 g/dL (3.4-5.0); ALKALINE PHOSPHATASE 57 U/L (46-116); ALT (SGPT) 22 U/L (10-68); BILIRUBIN - TOTAL 0.73 mg/dL (0.2-1.3); CALC OSMOLALITY 275 mosm/kg (275-300); CARBON DIOXIDE 28.2 mmol/L (21.0-32.0); CHLORIDE - SERUM 105 mmol/L (98-107); CREATINE KINASE 152 UL (21-232); CREATININE - SERUM 0.7 mg/dL (0.6-1.3); GLUCOSE 96 mg/dL (74-106); MAGNESIUM - SERUM 2.1 mg/dL (1.8-2.4); PHOSPHOROUS 3.9 mg/dL (2.5-4.9); POTASSIUM - SERUM 3.4 mmol/L (3.5-5.1); SODIUM 139 mmol/L (136-145); UREA NITROGEN 8 mg/dL (7-18); eGFR NON AFRICAN AMERICAN > 90 mL/min (90-120)
[2019-08-17 07:39] LABS: % SATURATION 27 % (15-55); IRON 57 ug/dl (35-150); TOTAL IRON BIND CAPACITY 209 ug/dl (260-445); UNSAT IRON BIND CAPACITY 152 ug/dl (150-375)
--- NOTE | 2019-08-17 08:30 | NUR ---
PT RESTING IN BED. RESP EVEN AND UNLABORED. PT DENIES PAIN AT THIS TIME, DOES VOICE WEAKNESS OF LOWER EXTREMITIES. PT DOES REPORT RECENT FALL. ALERT, ORIENTED TO PERSON, PLACE, TIME AND SITUATION. FALL PRECAUTIONS IN PLACE. IV TO LEFT FOREARM WITH NS @ 100ML/HR INFUSING VIA PUMP. SITE WITHOUT REDNESS OR EDEMA. DENIES FURTHER NEEDS AT THIS TIME. CL WITHIN REACH. ENCOURAGED TO CALL WITH NEEDS. CONTINUE POC
[2019-08-17 09:38] VITALS: BP 165/80
[2019-08-17 10:18] VITALS: Ht 177.8 cm; Wt 90.7 kg
[2019-08-17 13:19] VITALS: BP 126/54
[2019-08-17 17:15] VITALS: BP 156/57
[2019-08-17 20:00] VITALS: BP 166/65
[2019-08-18] VITALS: BP 109/61
--- NOTE | 2019-08-18 01:51 | NUR ---
RESTING IN BED RESPRATIONS ARE EVEN AND UNLABORED CALL LIGHT IN REACH
[2019-08-18 04:00] VITALS: BP 144/60
[2019-08-18 05:02] LABS: BASOPHILS 0.4 % (0-2); EOSINOPHILS 3.1 % (0-7); HEMATOCRIT 32.7 % (42.0-54.0); HEMOGLOBIN 10.8 g/dL (13.5-17.5); IMMATURE GRANULOCYTES 0.2 % (0-5); LYMPHOCYTES 19.5 % (15-50); MCH 30.2 pg (26.0-34.0); MCV 91.3 fL (80.0-100.0); MEAN PLATELET VOLUME 10.1 fL (7.4-10.4); MONOCYTES 14.9 % (2-11); NEUTROPHILS 61.9 % (40-80); PLATELET COUNT 149 10x3/uL (130-400); RBC 3.58 10x6/uL (4.20-6.10); WBC 5.4 10x3/uL (4.8-10.8)
[2019-08-18 05:20] LABS: CALC OSMOLALITY 275 mosm/kg (275-300); CALCIUM 7.8 mg/dL (8.5-10.1); CARBON DIOXIDE 25.4 mmol/L (21.0-32.0); CHLORIDE - SERUM 106 mmol/L (98-107); CREATININE - SERUM 0.7 mg/dL (0.6-1.3); GLUCOSE 94 mg/dL (74-106); PHOSPHOROUS 4.1 mg/dL (2.5-4.9); POTASSIUM - SERUM 3.5 mmol/L (3.5-5.1); SODIUM 139 mmol/L (136-145); UREA NITROGEN 7 mg/dL (7-18); eGFR NON AFRICAN AMERICAN > 90 mL/min (90-120)
[2019-08-18 08:39] VITALS: BP 100/62
--- NOTE | 2019-08-18 12:07 | NUR ---
Rehab Note- Acute Inpatient Rehab prescreen order received. THe patient is a good inpatient rehab candidate when medically stable and in agreeance with [facility] Acute Inpatient Rehab will accept. Will follow at this time. Thank you for this referral! Negrita Best RN Clinical Liaison, [facility] Rehab
[2019-08-18 12:46] VITALS: BP 125/58
[2019-08-18 17:34] VITALS: BP 139/58
[2019-08-18 20:00] VITALS: BP 164/64
[2019-08-19] VITALS: BP 168/68
[2019-08-19 04:00] VITALS: BP 154/69
--- NOTE | 2019-08-19 04:41 | NUR ---
I have reviewed this patient and I concur with the Shift Assessment completed by the Licensed Practical Nurse today this shift.
[2019-08-19 07:13] LABS: BASOPHILS 0.3 % (0-2); EOSINOPHILS 4.1 % (0-7); HEMATOCRIT 36.1 % (42.0-54.0); HEMOGLOBIN 11.8 g/dL (13.5-17.5); IMMATURE GRANULOCYTES 0.3 % (0-5); MCH 29.9 pg (26.0-34.0); MCHC 32.7 g/dL (31.0-37.0); MCV 91.6 fL (80.0-100.0); MEAN PLATELET VOLUME 11.4 fL (7.4-10.4); MONOCYTES 11.5 % (2-11); NEUTROPHILS 62.8 % (40-80); PLATELET COUNT 127 10x3/uL (130-400); RBC 3.94 10x6/uL (4.20-6.10); RDW 14.1 % (11.5-14.5); WBC 5.8 10x3/uL (4.8-10.8)
[2019-08-19 07:35] LABS: CALC OSMOLALITY 278 mosm/kg (275-300); CALCIUM 8.4 mg/dL (8.5-10.1); CARBON DIOXIDE 26.5 mmol/L (21.0-32.0); CHLORIDE - SERUM 106 mmol/L (98-107); CREATININE - SERUM 0.7 mg/dL (0.6-1.3); GLUCOSE 103 mg/dL (74-106); POTASSIUM - SERUM 3.9 mmol/L (3.5-5.1); SODIUM 141 mmol/L (136-145); UREA NITROGEN 8 mg/dL (7-18); eGFR NON AFRICAN AMERICAN > 90 mL/min (90-120)
--- NOTE | 2019-08-19 08:00 | NUR ---
ALERT AND OREINTED X4. TELEMETRY INTACT AND DENIES ANY CHEST PAIN OR DISCOMFORT. UP WITH SBA TO BATHROOM. DENIES ANY DISSINESS OR DISCOMFORT. ENCOURAGED TO USE CALL LIGHT FOR ASSSIT.
[2019-08-19] MEDS ORDERED: ROBAXIN PO (08:11)
--- NOTE | 2019-08-19 08:37 | MORECARE ---
CASE MANAGEMENT DISCHARGE SUMMARY PATIENT: DACIA MA UNIT: [id number] ADM DATE: 08/16/19 AGE: 83 : 36 SEX: M ROOM/BED: D.2205 AUTHOR: RICARDO JULIEN PHYSICIAN: REFERRING PHYSICIAN: KAY POP MD DATE OF SERVICE: 08/19/19 Discharge Plan Patient Name: DACIA MA [facility] : 1935 Planned Disposition: Inpatient Rehab Anticipated Discharge Date: Discharge Date: Expected LOS: Initial Reviewer: [email or web address] Initial Review Date: 08/16/2019 Generated: 08/19/19 9:37 am Coverage Notice Reviewer: [id number] Ramos Ignacio Notice Issued Date-Time: 08/19/2019 8:00 Notice Type: IM Discharge Notice Notice Delivered To: Patient Relationship to Patient: Integration Software Developer Name: Delivery Method: HAND - Hand Delivered Fay Days: Prior Verbal Notification: Recipient Understood Notice: Yes Recipient Signature: Yes Med Rec Note Co-signed by Attending: Coverage Notice Comment: Reviewer: [id number] Ramos Ignacio Notice Issued Date-Time: 08/19/2019 8:00 Notice Type: Patient Choice Letter Notice Delivered To: Patient Relationship to Patient: Integration Software Developer Name: Delivery Method: HAND - Hand Delivered Fay Days: Prior Verbal Notification: Recipient Understood Notice: Yes Recipient Signature: Yes Med Rec Note Co-signed by Attending: Coverage Notice Comment: rosalina for inpatient rehab Patient Name: DACIA MA Page [id number] at 0837 All edits/amendments must be made on the electronic document DICTATION DATE: 08/19/19 08 [place]APLA[place] RESIDENT: MANOJ 08/19/19836 RPT#: [id number] DC DATE: STATUS: ADM IN [place] [address] [place] [address] END OF REPORT
--- NOTE | 2019-08-19 08:44 | MORECARE ---
CASE MANAGEMENT DISCHARGE SUMMARY PATIENT: DACIA MA UNIT: [id number] ADM DATE: 08/16/19 AGE: 83 : 36 SEX: M ROOM/BED: D.2205 AUTHOR: WILYDOC PHYSICIAN: REFERRING PHYSICIAN: KAY POP MD DATE OF SERVICE: 08/19/19 Discharge Plan Patient Name: DACIA MA Facility: [facility]:[place] : 1935 Planned Disposition: Inpatient Rehab Anticipated Discharge Date: Discharge Date: Expected LOS: Initial Reviewer: [email or web address] Initial Review Date: 08/16/2019 Generated: 08/19/19 9:44 am Comments DCP- Discharge Planning Updated by [email or web address]: Reyna Ignacio on 08/19/19 7:[address] Patient Name: DACIA MA Admission Status: ER Accout number: [id number] Admission Date: 08-16-2019 : 1935 Admission Diagnosis: Attending: KAY POP Current LOS: 3 Anticipated DC Date: Planned Disposition: Inpatient Rehab Primary Insurance: MEDICARE A & B Discharge Planning Comments: CM met with patient to complete initial dc planning assessment. CM educated patient on the CM role and verbal consent given by patient to complete assessment. Patient lives at home by himself where he is independent with his care. At discharge patient plans to go to inpatient rehab at [facility] and feels this is a safe discharge. CM discussed availability of home health, rehab services, and medical equipment. He ahs a cane, walker, grab bars, shower chair at home. He states that he drives himself to MD appointments and is independent with his care. His step son will be the one to drive him home when he is discharged. ROSALINA signed for inpatient rehab and IMM served and explained. Patient denied known discharge needs at this time. CM will continue to follow and will assist as needed with dc plans/needs. Silver Holloware Assembler: Reyna Ignacio DCPIA - Discharge Planning Initial Assessment Updated by [email or web address]: eRyna Ignacio on 08/19/19 8:38 am * Is the patient Alert and Oriented? Yes * How many steps to enter\exit or inside your home? 0/RAMP * PCP PULLIG * Pharmacy [facility] [place] * Preadmission Environment Home Alone * ADLs Independent * Equipment Cane Grab Bars Rolling Walker Shower Chair * List name and contact numbers for known caregivers / representatives who currently or will assist patient after discharge: АЛЕКСАНДР SANTOS [phone] * Verbal permission to speak to the caregivers and representatives has been obtained from the patient. N/A * Community resources currently utilized None * Additional services required to return to the preadmission environment? Yes * Can the patient safely return to the preadmission environment? Yes * Has this patient been hospitalized within the prior 30 days at any hospital? No Coverage Notice Reviewer: [id number] Ramos Ignacio Notice Issued Date-Time: 08/19/2019 8:00 Notice Type: IM Discharge Notice Notice Delivered To: Patient Relationship to Patient: Trawl Net Maker Name: Delivery Method: HAND - Hand Delivered Fay Days: Prior Verbal Notification: Recipient Understood Notice: Yes Recipient Signature: Yes Med Rec Note Co-signed by Attending: Coverage Notice Comment: Reviewer: [id number] Ignacio Notice Issued Date-Time: 08/19/2019 8:00 Notice Type: Patient Choice Letter Notice Delivered To: Patient Relationship to Patient: Trawl Net Maker Name: Delivery Method: HAND - Hand Delivered Fay Days: Prior Verbal Notification: Recipient Understood Notice: Yes Recipient Signature: Yes Med Rec Note Co-signed by Attending: Coverage Notice Comment: [facility]ina for inpatient rehab Last DP export: 08/19/19 7:37 a Patient Name: DACIA MA Page [phone] at 0844 All edits/amendments must be made on the electronic document DICTATION DATE: 08/19/19843 ASSEMBLY MACHINE SET UP MECHANIC: MANOJ 08/19/19843 RPT#: [id number] DC DATE: STATUS: ADM IN [facility] [address] [place] [address] END OF REPORT
[2019-08-19 10:22] VITALS: BP 153/68
[2019-08-19 13:59] VITALS: BP 139/64
--- NOTE | 2019-08-19 14:30 | NUR ---
IV DISCONTINUED AND DISCHARGED TO REHAB WITH REPORT GIVEN. PT VERBALIZED UNDERSTANDING OF DISCHARGE INSTRUCTIONS. STABLE AT TIME OF DSICHARGE
--- NOTE | 2019-08-20 18:16 | MORECARE ---
CASE MANAGEMENT DISCHARGE SUMMARY PATIENT: DACIA MA UNIT: [id number] ADM DATE: 08/16/19 AGE: 83 : 36 SEX: M ROOM/BED: D.2205 AUTHOR: WILYDOC PHYSICIAN: REFERRING PHYSICIAN: KAY POP MD DATE OF SERVICE: 08/20/19 Discharge Plan Patient Name: DACIA MA Facility: [facility]:[place] : 1935 Planned Disposition: Inpatient Rehab Anticipated Discharge Date: Discharge Date: 08/19/2019 Expected LOS: Initial Reviewer: [email or web address] Initial Review Date: 08/16/2019 Generated: 08/20/19 7:15 pm Comments DCP- Discharge Planning Updated by [email or web address]: Reyna Ignacio on 08/19/19 7:[address] Patient Name: DACIA MA Admission Status: ER Accout number: [id number] Admission Date: 08-16-2019 : 1935 Admission Diagnosis: Attending: KAY POP Current LOS: 3 Anticipated DC Date: Planned Disposition: Inpatient Rehab Primary Insurance: MEDICARE A & B Discharge Planning Comments: CM met with patient to complete initial dc planning assessment. CM educated patient on the CM role and verbal consent given by patient to complete assessment. Patient lives at home by himself where he is independent with his care. At discharge patient plans to go to inpatient rehab at [facility] and feels this is a safe discharge. CM discussed availability of home health, rehab services, and medical equipment. He ahs a cane, walker, grab bars, shower chair at home. He states that he drives himself to MD appointments and is independent with his care. His step son will be the one to drive him home when he is discharged. ROSALINA signed for inpatient rehab and IMM served and explained. Patient denied known discharge needs at this time. CM will continue to follow and will assist as needed with dc plans/needs. Svp Digital Sales Food & Cooking: Reyna Ignacio DCPIA - Discharge Planning Initial Assessment Updated by [email or web address]: Reyna Ignacio on 08/19/19 8:38 am * Is the patient Alert and Oriented? Yes * How many steps to enter\exit or inside your home? 0/RAMP * PCP PULLIG * Pharmacy [facility] [place] * Preadmission Environment Home Alone * ADLs Independent * Equipment Cane Grab Bars Rolling Walker Shower Chair * List name and contact numbers for known caregivers / representatives who currently or will assist patient after discharge: АЛЕКСАНДР SANTOS [phone] * Verbal permission to speak to the caregivers and representatives has been obtained from the patient. N/A * Community resources currently utilized None * Additional services required to return to the preadmission environment? Yes * Can the patient safely return to the preadmission environment? Yes * Has this patient been hospitalized within the prior 30 days at any hospital? No Coverage Notice Reviewer: [id number] Ramos Ignacio Notice Issued Date-Time: 08/19/2019 8:00 Notice Type: IM Discharge Notice Notice Delivered To: Patient Relationship to Patient: Letter Sorting Machine Operator Name: Delivery Method: HAND - Hand Delivered Fay Days: Prior Verbal Notification: Recipient Understood Notice: Yes Recipient Signature: Yes Med Rec Note Co-signed by Attending: Coverage Notice Comment: Reviewer: [id number] Ignacio Notice Issued Date-Time: 08/19/2019 8:00 Notice Type: Patient Choice Letter Notice Delivered To: Patient Relationship to Patient: Letter Sorting Machine Operator Name: Delivery Method: HAND - Hand Delivered Fay Days: Prior Verbal Notification: Recipient Understood Notice: Yes Recipient Signature: Yes Med Rec Note Co-signed by Attending: Coverage Notice Comment: [facility] for inpatient rehab Last DP export: 08/19/19 7:44 a Patient Name: DACIA MA Page [phone] at 1816 All edits/amendments must be made on the electronic document DICTATION DATE: 08/20/191814 CANAL EQUIPMENT MECHANIC: MANOJ 08/20/191814 RPT#: [id number] DC DATE:08/19/19 STATUS: DIS IN [facility] [address] [place] [address] END OF REPORT
== END 2019-08-19 14:30 | DRG 689 ==
LOC: D.ER 15:45 → D.MS 18:00
PROVIDERS: Family Medicine; ADMIT Internal Medicine Nephrology; ATTEND Internal Medicine Nephrology
DX: N39.0 Urinary tract infection, site not specified (principal); G92 Toxic encephalopathy; W19.XXXA Unspecified fall, initial encounter; D64.9 Anemia, unspecified; I10 Essential (primary) hypertension; E78.5 Hyperlipidemia, unspecified; E11.40 Type 2 diabetes mellitus with diabetic neuropathy, unspecified; M19.90 Unspecified osteoarthritis, unspecified site; Z85.46 Personal history of malignant neoplasm of prostate

== ENCOUNTER 2019-08-19 12:16 | Inpatient (IN) | payer MEDICARE, OTHER ==
[~2019-08-19] VITALS: Ht 177.8 cm; Wt 90.7 kg
[~2019-08-19 12:16] MED LIST changes: +ROBAXIN PO
--- NOTE | 2019-08-19 16:22 | NUR ---
PATIENT ADMITTED TO REHAB FROM ACUTE FLOOR. DME AT HOME IS A CANE , WALKER, SHOWER CHAIR. PCP IS DR. HDEZ. DISCHARGE PLANS ARE FOR PATIENT TO RETURN HOME. WILL CONTINUE TO FOLLOW WITH PATIENT.
[2019-08-19 16:41] VITALS: BP 182/75; BMI 28.7
[2019-08-19 19:15] VITALS: BP 182/80
--- NOTE | 2019-08-19 19:15 | NUR ---
PT RECEIVED BEDSIDE REPORT COMPLETE. PT LYING IN BED EYES CLOSED RESTING COMFORTABLY. EASILY AROUSED WITH VERBAL STIMULI. DENIES ANY NEEDS OR PAIN. NO SIGNS OF ACUTE DISTRESS NOTED. VS STABLE. SHIFT ASSESSMENT COMPLETE. CL IN REACH. FALL PRECAUTIONS IN PLACE. WILL CONTINUE TO MONITOR
--- NOTE | 2019-08-20 01:42 | NUR ---
PT LYING IN BED EYES CLOSED RESTING COMFORTABLY. RR EVEN AND UNLABORED. CL IN REACH
--- NOTE | 2019-08-20 04:54 | NUR ---
PT LYING IN BED EYES CLOSED RESTING QUIETLY. RR EVEN AND UNLABORED. CL IN REACH
--- NOTE | 2019-08-20 06:20 | NUR ---
VIOLETA, PT INFORMED PATIENT IS C/O BEING NAUSEATED AND DIZZY. CHECKED BP 118/60. PATIENT STATES THAT HE IS FEELING BETTER NOW THAT HE HAS SAT FOR A WHILE AND RESTED. PROVIDED PATIENT WITH [employer] AND [place] [employer] [employer] [place] [employer], PT FELT THAT HE MAY BE JUST HUNGRY D/T NOT EATING DINNER LAST NIGHT. WILL CONTINUE TO MONITOR AND INFORM DR. ESPINAL
[2019-08-20 07:24] LABS: BASOPHILS 0.3 % (0-2); EOSINOPHILS 3.1 % (0-7); HEMATOCRIT 38.2 % (42.0-54.0); HEMOGLOBIN 12.6 g/dL (13.5-17.5); IMMATURE GRANULOCYTES 0.3 % (0-5); LYMPHOCYTES 19.1 % (15-50); MCH 29.9 pg (26.0-34.0); MCV 90.7 fL (80.0-100.0); MEAN PLATELET VOLUME 10.6 fL (7.4-10.4); MONOCYTES 9.9 % (2-11); NEUTROPHILS 67.3 % (40-80); RBC 4.21 10x6/uL (4.20-6.10); RDW 14.1 % (11.5-14.5); WBC 6.9 10x3/uL (4.8-10.8)
[2019-08-20 07:25] LABS: PLATELET COUNT 160 10x3/uL (130-400)
[2019-08-20 07:30] LABS: CALC OSMOLALITY 278 mosm/kg (275-300); CALCIUM 8.7 mg/dL (8.5-10.1); CARBON DIOXIDE 23.6 mmol/L (21.0-32.0); CHLORIDE - SERUM 104 mmol/L (98-107); CREATININE - SERUM 0.8 mg/dL (0.6-1.3); GLUCOSE 113 mg/dL (74-106); POTASSIUM - SERUM 3.9 mmol/L (3.5-5.1); SODIUM 140 mmol/L (136-145); eGFR NON AFRICAN AMERICAN > 90 mL/min (90-120)
[2019-08-20 07:31] LABS: UREA NITROGEN 11 mg/dL (7-18)
[2019-08-20 08:23] VITALS: BP 106/43
[2019-08-20 10:35] VITALS: Ht 177.8 cm; Wt 90.7 kg
--- NOTE | 2019-08-20 10:57 | NUR ---
SITTING UP IN ROOM. HAS BEEN UP WORKING WITH THERAPY. REFUSED BREAKFAST THIS AM STATING HE DID NOT LIKE THE WAY IT LOOKED. OFFERED TO GET HIM SOMETHING ELSE BUT HE REFUSED. INCONT OF B/B. CALL LIGHT IN REACH
--- NOTE | 2019-08-20 15:27 | NUR ---
SITTING UP IN ROM WATCHING TV. DENIES NEEDS KOR C/O. CALL LIGHT IN REACH
[2019-08-20 19:20] VITALS: BP 162/71
--- NOTE | 2019-08-20 19:20 | NUR ---
PT RECEIVED SITTING UP IN W/C WATCHING TV. DENIES ANY NEEDS OR PAIN. BEDSIDE REPORT COMPLETE. NO SIGNS OF ACUTE DISTRESS NOTED. VS STABLE. SHIFT ASSESSMENT COMPLETE. CL IN REACH. FALL PRECAUTIONS IN PLACE. WILL CONTINUE TO MONITOR
--- NOTE | 2019-08-20 23:27 | NUR ---
PT LYING IN BED EYES CLOSED RESTING COMFORTABLY. RR EVEN AND UNLABORED. LINENS AND BRIEF CLEAN AND DRY. CL IN REACH
--- NOTE | 2019-08-21 02:39 | NUR ---
PT LYING IN BED ON LEFT SIDE EYES CLOSED RESTING COMFORTABLY. RR EVEN AND UNLABORED. CL IN REACH
--- NOTE | 2019-08-21 06:00 | NUR ---
INCONTINENCE CARE PROVIDED. DENIES ANY OTHER NEEDS OR PAIN. CL IN REACH
[2019-08-21 07:38] VITALS: BP 115/42
--- NOTE | 2019-08-21 13:00 | NUR ---
SITTING UP IN ROOM EATING LUNCH. HAS BEEN UP SINCE THIS MORNING WATCHING TV. DENIES NEEDS OR C/O. CALL LIGHT IN REACH
--- NOTE | 2019-08-21 16:49 | NUR ---
SITTING UP IN WC IN ROOM VISITING WITH VISITOR AND WATCHING TV. DENIES C/O. NEEDS ASST WITH CHANGING INCONT BRIEFS. GAIT UNSTEADY. CALL LIGHT IN REACH
[2019-08-21 18:26] VITALS: BP 135/61
--- NOTE | 2019-08-21 19:10 | NUR ---
BEDSIDE REPORT COMPLETE. PT RECEIVED SITTING UP IN W/C WATCHING TV. DENIES ANY NEEDS OR PAIN. NO SIGNS OF ACUTE DISTRESS NOTED. VS STABLE. SHIFT ASSESSMENT COMPLETE. CL IN REACH. FALL PRECAUTIONS IN PLACE. WILL CONTINUE TO MONITOR
--- NOTE | 2019-08-21 23:15 | NUR ---
PT LYING IN BED EYES CLOSED RESTING COMFORTABLY. RR EVEN AND UNLABORED. CL IN REACH
--- NOTE | 2019-08-22 02:34 | NUR ---
PT LYING IN BED SUPINE EYES CLOSED RESTING COMFORTABLY. CL IN REACH
--- NOTE | 2019-08-22 05:56 | NUR ---
INCONTINENCE CARE PROVIDED. MED VOID. DENIES ANY OTHER NEEDS OR PAIN. CL IN REACH
[2019-08-22 06:00] LABS: BASOPHILS 0.5 % (0-2); EOSINOPHILS 2.4 % (0-7); HEMATOCRIT 35.5 % (42.0-54.0); HEMOGLOBIN 11.4 g/dL (13.5-17.5); IMMATURE GRANULOCYTES 0.3 % (0-5); LYMPHOCYTES 17.9 % (15-50); MCH 29.8 pg (26.0-34.0); MCHC 32.1 g/dL (31.0-37.0); MEAN PLATELET VOLUME 11.4 fL (7.4-10.4); NEUTROPHILS 65.9 % (40-80); RBC 3.82 10x6/uL (4.20-6.10); RDW 14.4 % (11.5-14.5); WBC 6.3 10x3/uL (4.8-10.8)
[2019-08-22 06:11] LABS: CALC OSMOLALITY 281 mosm/kg (275-300); CALCIUM 8.3 mg/dL (8.5-10.1); CARBON DIOXIDE 26.4 mmol/L (21.0-32.0); CHLORIDE - SERUM 105 mmol/L (98-107); CREATININE - SERUM 0.8 mg/dL (0.6-1.3); GLUCOSE 102 mg/dL (74-106); POTASSIUM - SERUM 3.6 mmol/L (3.5-5.1); SODIUM 140 mmol/L (136-145); UREA NITROGEN 22 mg/dL (7-18); eGFR NON AFRICAN AMERICAN > 90 mL/min (90-120)
[2019-08-22 06:44] LABS: MCV 92.9 fL (80.0-100.0); PLATELET COUNT 123 10x3/uL (130-400)
[2019-08-22 07:58] VITALS: BP 121/59
--- NOTE | 2019-08-22 09:22 | NUR ---
PATIENT ADMITTED TO REHAB FROM ACUTE FLOOR. DR. HDEZ IS HIS PCP. DME AT HOME IS A CANE, WALKER AND A SHOWER CHAIR. PATIENT LIVES ALONE AND PLANS TO DSICHARGE TO HIS HOME. WILL CONTINUE TO FOLLOW WITH PATIENT.
--- NOTE | 2019-08-22 10:57 | NUR ---
HAS BEEN UP IN WC THIS MORNING. FED HIMSELF BREAKFAST AND WENT TO THERAPY. DENIES NEEDS OR C/O.
--- NOTE | 2019-08-22 13:21 | RHP ---
PATIENT: DACIA MA MEDICAL RECORD: [id number] ACCOUNT: [id number] LOCATION:[facility]1113 : 37 ADMISSION DATE: 08/19/19 REHABILITATION HISTORY AND PHYSICAL EXAMINATION POST ADMISSION PHYSICIAN EXAMINATION ADMITTING DIAGNOSIS: Acute metabolic encephalopathy. HISTORY OF PRESENT ILLNESS: The patient is an 83-year-old gentleman who was recently admitted to [facility] for failure of the urinary catheter drain, underwent cystoscopy during that admission, he presented to ED on 08/16/2019 with a fall and confusion. He fell while he was walking to his laundry room, was unable to get up for some time, was able to call home health, which came out, notified EMS and was brought to the ER. He apparently had some reported confusion, which he attributed to his medication. He additionally had a poor appetite. States his urinary flow has improved, but is still urge incontinence. He has been receiving PT during his acute hospital stay and progressing well. He is currently on IV antibiotic therapy. Monitoring his urinary output closely, deconditioning, debility, impaired mobility, gait disturbance, high fall risk, and self-care deficits. These are all barriers to his discharge home. He lives at home alone, was independent with ADLs and mobility prior to this. Currently, set up for mod assist with his ADLs and mod assist for his mobility. He would like to return home with home health resumption after his stay here. COMORBIDITIES: Include UTI, acute toxic metabolic encephalopathy status post fall, history of prostate cancer status post prostatectomy, recent urinary obstruction and cystoscopy, hypertension, dyslipidemia, diabetes, neuropathy, osteoarthritis and altered mental status. PAST MEDICAL HISTORY: Significant for neuropathy, diabetes, hypertension, prostate cancer, urinary retention, arthritis, osteoporosis, depression and anxiety. PAST SURGICAL HISTORY: Includes gallbladder, appendectomy, umbilical hernia repair, and prostatectomy. ALLERGIES: PENICILLIN. CURRENT MEDICATIONS: Include Zocor 20 mg daily, aspirin 81 mg daily, Robaxin 500 mg b.i.d., lorazepam 1 mg at bedtime, labetalol 100 mg b.i.d., Neurontin 600 mg b.i.d., White 5/325 one tab every 6 hours p.r.n., Tylenol 1 tab every 12 hours of the Tylenol with codeine and polyethylene glycol 17 grams in 8 ounces of water daily. HABITS: No alcohol or tobacco use. FAMILY HISTORY: Noncontributory. SOCIAL HISTORY: The patient hopes to return back home and get back to his prior level of functioning. REVIEW OF SYSTEMS: GENERAL: Does complain of some weakness and fatigue. HEENT: Denies cold, cough, or congestion. CARDIOVASCULAR: Denies chest pain. HISTORY AND PHYSICAL [id number] DACIA MA PHYSICAL EXAMINATION: VITAL SIGNS: Stable, afebrile. GENERAL: A well-developed, moderately obese gentleman in no acute distress upon exam. HEENT: Normocephalic and atraumatic. Mucosa moist. NECK: Supple. No lymphadenopathy. LUNGS: Clear in upper snider with no wheezing, rhonchi or rales. HEART: Regular rate and rhythm. No murmurs, rubs or gallops. ABDOMEN: Soft, benign and nondistended. Positive bowel sounds times 4. EXTREMITIES: No clubbing, cyanosis or edema. NEUROLOGIC: He does have some noted weakness. LABORATORY DATA: His white count is 6.9, H&H of 12 and 38 and platelet count was noted to be 160. His sodium is 140, potassium 3.9, BUN and creatinine of 11 and 0.8. Blood sugar is noted to be 113. ASSESSMENT: This is an 83-year-old gentleman admitted to the rehab with a working diagnosis of metabolic encephalopathy. The patient had potential to make improvement. We instituted the following multidisciplinary therapies including, but not limited to physical, occupational, respiratory, speech, nutritional services, prosthetics and orthotics. Given his complex medical condition and risks for more complications, rehabilitation services cannot be provided at a low level of care such a detention facility. PLAN: 1. Admit to [facility] for intensive inpatient therapy to include the following disciplines; A. Physical therapy to improve gait, all transfer skills and bed mobility to a modified independent level. B. Occupational therapy to a modified independent level. C. Case management to assist with discharge planning and placement options. D. Nutrition to assist with nutritional needs. E. Rehabilitation nursing to assist in monitoring the patient's underlying medical conditions and to assist with any type of bowel or bladder management. 2. The patient's current medication and medical care will be continued. 3. Placed on standard fall precautions. 4. The patient's estimated length of stay is approximately 7-10 days. 5. We will discuss the patient during care team staff meeting this week. TRANSINT:[id number] Voice Confirmation ID: [id number] DOCUMENT ID: [id number] RUTH notes whether there has been none or any medical/functional change since admission: - No change since prescreen. RUTH attests patient continues to be appropriate for IRF: - Continues to be appropriate. HISTORY AND PHYSICAL [id number] DACIA MA,SAUL MAYORGA MD at 1321 CC: [id number] DICTATION DATE: 08/20/19 1018 PERSONNEL CONSULTANT: 08/20/19 1058 ADM IN [place] [id number] [place] [id number]
--- NOTE | 2019-08-22 16:14 | NUR ---
SITTING UP IN WC TALKING WITH ROOM MATE. DENIES NEEDS. WAS ABLE TO VOID IN TOILET EARLIER WITH OUT BEING INCONT. CALL LIGHT IN REACH
--- NOTE | 2019-08-22 19:00 | NUR ---
BEDSIDE REPORT COMPLETE. RECEIVED PT SITTING UP IN W/C WATCHING TV. DENIES ANY NEEDS OR PAIN. NO SIGNS OF ACUTE DISTRESS NOTED. VS STABLE. SHIFT ASSESSMENT COMPLETE. CL IN REACH. FALL PRECAUTIONS IN PLACE. WILL CONTINUE TO MONITOR
[2019-08-22 19:54] VITALS: BP 141/58
--- NOTE | 2019-08-23 02:08 | NUR ---
PT LYING IN BED EYES CLOSED RESTING COMFORTABLY. RR EVEN AND UNLABORED. CL IN REACH
--- NOTE | 2019-08-23 04:23 | NUR ---
PT LYING IN BED ON RIGHT SIDE EYES CLOSED RESTING. CL IN REACH
[2019-08-23 06:31] LABS: BASOPHILS 0.4 % (0-2); EOSINOPHILS 2.9 % (0-7); HEMATOCRIT 36.1 % (42.0-54.0); HEMOGLOBIN 11.8 g/dL (13.5-17.5); IMMATURE GRANULOCYTES 0.4 % (0-5); LYMPHOCYTES 18.7 % (15-50); MCH 30.3 pg (26.0-34.0); MCHC 32.7 g/dL (31.0-37.0); MCV 92.8 fL (80.0-100.0); MEAN PLATELET VOLUME 10.3 fL (7.4-10.4); MONOCYTES 12.5 % (2-11); NEUTROPHILS 65.1 % (40-80); PLATELET COUNT 144 10x3/uL (130-400); RBC 3.89 10x6/uL (4.20-6.10); RDW 14.3 % (11.5-14.5); WBC 6.9 10x3/uL (4.8-10.8)
[2019-08-23 06:46] LABS: CALC OSMOLALITY 280 mosm/kg (275-300); CALCIUM 8.4 mg/dL (8.5-10.1); CHLORIDE - SERUM 105 mmol/L (98-107); CREATININE - SERUM 0.9 mg/dL (0.6-1.3); GLUCOSE 103 mg/dL (74-106); POTASSIUM - SERUM 4.1 mmol/L (3.5-5.1); SODIUM 140 mmol/L (136-145); UREA NITROGEN 19 mg/dL (7-18); eGFR NON AFRICAN AMERICAN 86 mL/min (90-120)
[2019-08-23 08:43] VITALS: BP 105/57
--- NOTE | 2019-08-23 14:51 | NUR ---
Nutrition Follow-up: Diet: Low Cholesterol PO intake: ~63% average x last 6 meals. He likes the food and states that his appetite has been good. He has been ordering vanilla Ensure. Last BM: 08/22/19. WT: 200# (08/20/19) Meds and labs reviewed. Recommend continue current diet. Will add Ensure to diet order per pt's request. RD following.
[2019-08-23 21:15] VITALS: BP 111/54
--- NOTE | 2019-08-24 03:25 | NUR ---
PT. RESTING QUIETLY WITH EYES CLOSED. RESPIRATIONS EVEN. NO S/S OF DISTRESS. CALL LIGHT IN REACH.
--- NOTE | 2019-08-24 08:19 | NUR ---
ALERT AND ORIENTED. NO C/O PAIN. EATING BREAKFAST. CL IN REACH.
[2019-08-24 08:29] VITALS: BP 130/55
[2019-08-24 08:36] LABS: BASOPHILS 0.6 % (0-2); EOSINOPHILS 3.2 % (0-7); HEMATOCRIT 35.8 % (42.0-54.0); HEMOGLOBIN 11.6 g/dL (13.5-17.5); IMMATURE GRANULOCYTES 0.3 % (0-5); LYMPHOCYTES 16.8 % (15-50); MCH 30.1 pg (26.0-34.0); MCHC 32.4 g/dL (31.0-37.0); MEAN PLATELET VOLUME 12.1 fL (7.4-10.4); MONOCYTES 15.8 % (2-11); NEUTROPHILS 63.3 % (40-80); RBC 3.85 10x6/uL (4.20-6.10); RDW 14.5 % (11.5-14.5)
[2019-08-24 08:38] LABS: PLATELET COUNT 79 10x3/uL (130-400)
[2019-08-24 08:45] LABS: CALC OSMOLALITY 280 mosm/kg (275-300); CALCIUM 8.4 mg/dL (8.5-10.1); CARBON DIOXIDE 28.5 mmol/L (21.0-32.0); CHLORIDE - SERUM 106 mmol/L (98-107); CREATININE - SERUM 0.7 mg/dL (0.6-1.3); GLUCOSE 104 mg/dL (74-106); POTASSIUM - SERUM 4.2 mmol/L (3.5-5.1); SODIUM 140 mmol/L (136-145); UREA NITROGEN 17 mg/dL (7-18); eGFR NON AFRICAN AMERICAN > 90 mL/min (90-120)
--- NOTE | 2019-08-24 10:50 | NUR ---
SHOWER DONE PER OT TODAY.
[2019-08-24 10:51] LABS: PLATELET ESTIMATE DECREASED
--- NOTE | 2019-08-24 12:31 | NUR ---
SITTING IN WC. NO CHANGE IN ASSESSMENT. EATING LUNCH.
--- NOTE | 2019-08-24 13:49 | NUR ---
CARE TEAM MEETING: PATIENT IS DOING WELL IN THERAPY. TENATIVE DISCHARGE DATE IS 08/30/2019. WILL CONTINUE TO FOLLOW WITH PATIENT.
--- NOTE | 2019-08-24 16:42 | NUR ---
NO CHANGE IN ASSESSMENT. SITTING IN WC IN ROOM. SIGNED BED/CHAIR ALARM WAIVER. WAS OK'D PER OT BEBO.
--- NOTE | 2019-08-24 18:51 | NUR ---
BEDSIDE REPORT COMPLETE. GREETED PATIENT AND ASSISTED PATIENT TO BATHROOM USING WHEELCHAIR. CHANGED PTS. WET BREIF. HELPED PATIENT CHANGE INTO GOWN FOR SLEEPING. RESPIRATIONS EVEN. NO S/S OF DISTRESS. HELPED PATIENT BACK INTO WHEELCHAIR. CALL LIGHT IN REACH.
[2019-08-24 20:54] VITALS: BP 136/43
--- NOTE | 2019-08-24 23:12 | NUR ---
PT. RESTING QUIETLY WITH EYES CLOSED. RESPIRATIONS EVEN. NO S/S OF DISTRESS. CALL LIGHT IN REACH.
--- NOTE | 2019-08-25 00:34 | NUR ---
PT. RESTING QUIETLY WITH EYES CLOSED. RESPIRATIONS EVEN. NO S/S OF DISTRESS. CALL LIGHT IN REACH.
[2019-08-25 08:00] VITALS: BP 126/51
--- NOTE | 2019-08-25 08:00 | NUR ---
PATIENT IS ALERT/ORIENT. CALL LIGHT WITHIN REACH. VOICES NO NEEDS AT THIS TIME. WILL CONTINUE WITH PLAN OF CARE
--- NOTE | 2019-08-25 10:10 | NUR ---
PATIENT IN REHAB ROOM. WORKING WITH PHYSICAL THERAPIST. DENIES ANY PAIN/DISC AT THIS TIME.
--- NOTE | 2019-08-25 13:15 | NUR ---
PATIENT HAS SIGNED A BED/CHAIR ALARM WAVIOR. WALKING TO THE BATHROOM WITH WHEELED WALKER. STEADY GAIT.
--- NOTE | 2019-08-25 14:43 | NUR ---
Nutrition Follow-up: Diet: Low Cholesterol + Vanilla Ensure with meals PO intake: 100% x 3 Last BM: 08/24/19. WT: 200# (08/20/19) Meds and labs reviewed. Recomment continue current diet. RD following.
--- NOTE | 2019-08-25 17:05 | NUR ---
PATIENT HAS VISITORS IN ROOM.
[2019-08-25 19:05] VITALS: BP 123/47
--- NOTE | 2019-08-25 20:04 | NUR ---
GREETED PATIENT AND INTRODUCED MYSELF HIS NURSE. PATIENT IS CURRENTLY SITTING IN WHEELCHAIR WATCHING TV. RESPIRATIONS EVEN. NO S/S OF DISTRESS. DENIES ANY NEEDS AT THIS TIME. CALL LIGHT IN REACH.
--- NOTE | 2019-08-26 02:53 | NUR ---
PT. RESTING QUIETLY WITH EYES CLOSED. RESPIRATIONS EVEN. NO S/S OF DISTRESS. CALL LIGHT IN REACH.
[2019-08-26 08:20] LABS: BASOPHILS 0.6 % (0-2); EOSINOPHILS 2.7 % (0-7); HEMATOCRIT 37.6 % (42.0-54.0); HEMOGLOBIN 12.2 g/dL (13.5-17.5); IMMATURE GRANULOCYTES 0.3 % (0-5); LYMPHOCYTES 15.8 % (15-50); MCH 30.2 pg (26.0-34.0); MCHC 32.4 g/dL (31.0-37.0); MCV 93.1 fL (80.0-100.0); MEAN PLATELET VOLUME 12.2 fL (7.4-10.4); MONOCYTES 12.6 % (2-11); RBC 4.04 10x6/uL (4.20-6.10); RDW 14.3 % (11.5-14.5); WBC 6.7 10x3/uL (4.8-10.8)
[2019-08-26 08:21] LABS: PLATELET COUNT 115 10x3/uL (130-400)
--- NOTE | 2019-08-26 08:30 | NUR ---
ALERT, SITTING IN W/C. NO COMPLAINTS. NO S/S OF DISTRESS. WCTM.
[2019-08-26 08:34] LABS: CALC OSMOLALITY 287 mosm/kg (275-300); CALCIUM 8.7 mg/dL (8.5-10.1); CARBON DIOXIDE 27.8 mmol/L (21.0-32.0); CHLORIDE - SERUM 105 mmol/L (98-107); CREATININE - SERUM 0.9 mg/dL (0.6-1.3); GLUCOSE 116 mg/dL (74-106); POTASSIUM - SERUM 3.8 mmol/L (3.5-5.1); SODIUM 142 mmol/L (136-145); UREA NITROGEN 25 mg/dL (7-18); eGFR NON AFRICAN AMERICAN 86 mL/min (90-120)
[2019-08-26 12:48] VITALS: BP 117/44
--- NOTE | 2019-08-26 18:00 | NUR ---
HAS BEEN IN WHEELCHAIR THROUGHOUT THE DAY. HAS BEEN TO PT AND HAS NO COMPLAINTS. WILL CONTINUE TO MONITOR.
[2019-08-26 19:50] VITALS: BP 138/51
--- NOTE | 2019-08-26 22:56 | NUR ---
PATIENT RECEIVED SITTING UP CHAIR. ASSESSMENT & VITAL SIGNS DONE. NO C/O PAIN OR DISTRESS. BED LOW. ALARM ON. CALL LIGHT WITHIN REACH. WILL CONTINUE TO MONITOR.
--- NOTE | 2019-08-27 00:50 | NUR ---
I have reviewed this patient and I concur with the Shift Assessment completed by the Licensed Practical Nurse today this shift.
--- NOTE | 2019-08-27 03:43 | NUR ---
PATIENT EYES CLOSED. RESPIRATIONS 18 & EVEN. BED LOW. CALL LIGHT WITHIN REACH. WILL CONTINUE TO MONITOR.
[2019-08-27 08:50] VITALS: BP 118/53
--- NOTE | 2019-08-27 11:40 | NUR ---
PT UP WALKING WITH WALKER IN HALLWAY WITH PHYSICAL THERAPY.
--- NOTE | 2019-08-27 15:51 | NUR ---
PT SITTING IN WC IN ROOM. PT STATES HE HAS NO FURTHER NEEDS AT THIS TIME. BED LOW. CL IN REACH. SIGNED BED ALARM WAIVER IN CHART.
[2019-08-27 20:00] VITALS: BP 124/53
--- NOTE | 2019-08-27 20:00 | NUR ---
THIS NURSE INTRODUCED SELF & WROTE NAME ON BOARD. ASSESSMENT & VITAL SIGNS DONE. NO C/O PAIN OR DISTRESS. BED LOW. CALL LIGHT WITHIN REACH. WILL CONTINUE TO MONITOR.
--- NOTE | 2019-08-28 03:16 | NUR ---
I have reviewed this patient and I concur with the Shift Assessment completed by the Licensed Practical Nurse today this shift.
--- NOTE | 2019-08-28 04:19 | NUR ---
PATIENT EYES CLOSED. RESPIRATIONS 18 & EVEN. BED LOW. CALL LIGHT WITHIN REACH. WILL CONTINUE TO MONITOR.
--- NOTE | 2019-08-28 07:33 | NUR ---
PT SITTING UP IN WHEELCHAIR PERFORMING ADLs WITH NO ASSISTANCE. ORAL CARE COMPLETE. DENIES NEEDS OR PAIN AT THIS TIME. ABLE TO MOVE TO CALLL LIGHT WHEN NEEDED. WILL CONTINUE TO MONITOR.
[2019-08-28 08:15] VITALS: BP 122/57
--- NOTE | 2019-08-28 15:10 | NUR ---
I have reviewed this patient and I concur with the Shift Assessment completed by the Licensed Practical Nurse today this shift.
--- NOTE | 2019-08-28 22:40 | NUR ---
PATIENT IS PLEASANT, CAN MAKE ALL OF HIS NEEDS KNOWN, CAN TRANSFER AND PIVOT INDEPENDENTLY. WILL MONITOR
[2019-08-29 06:40] LABS: BASOPHILS 0.4 % (0-2); EOSINOPHILS 2.9 % (0-7); HEMATOCRIT 36.5 % (42.0-54.0); HEMOGLOBIN 11.7 g/dL (13.5-17.5); IMMATURE GRANULOCYTES 0.1 % (0-5); LYMPHOCYTES 19.6 % (15-50); MCH 30.2 pg (26.0-34.0); MCHC 32.1 g/dL (31.0-37.0); MCV 94.1 fL (80.0-100.0); MEAN PLATELET VOLUME 11.9 fL (7.4-10.4); MONOCYTES 10.2 % (2-11); NEUTROPHILS 66.8 % (40-80); PLATELET COUNT 127 10x3/uL (130-400); RBC 3.88 10x6/uL (4.20-6.10); RDW 14.2 % (11.5-14.5); WBC 6.9 10x3/uL (4.8-10.8)
[2019-08-29 07:00] LABS: CALC OSMOLALITY 285 mosm/kg (275-300); CALCIUM 8.8 mg/dL (8.5-10.1); CARBON DIOXIDE 28.3 mmol/L (21.0-32.0); CHLORIDE - SERUM 105 mmol/L (98-107); CREATININE - SERUM 0.8 mg/dL (0.6-1.3); GLUCOSE 102 mg/dL (74-106); SODIUM 142 mmol/L (136-145); UREA NITROGEN 20 mg/dL (7-18); eGFR NON AFRICAN AMERICAN > 90 mL/min (90-120)
--- NOTE | 2019-08-29 07:10 | NUR ---
SHIFT REPORT RECEIVED. PT IN BATHROOM AT THIS TIME. ON ROOM AIR. USES WHEELCHAIR TO MOVE AROUND. GEE CONTINUE TO MONITOR.
[2019-08-29 08:59] VITALS: BP 111/48
--- NOTE | 2019-08-29 19:16 | NUR ---
GREETED PATIENT AND INTRODUCED MYSELF HIS NURSE. PATIENT IS SITTING IN WHEELCHAIR AT THIS TIME. BROUGHT PATIENT CLEAN GOWN AND DRY BRIEFS TO CHANGE INTO. PT. DENIES ANY FURTHER NEEDS AT THIS TIME. CALL LIGHT IN REACH.
[2019-08-29 21:10] VITALS: BP 129/47
--- NOTE | 2019-08-30 02:12 | NUR ---
PT. RESTING QUIETLY WITH EYES CLOSED. RESPIRATIONS EVEN. NO S/S OF DISTRESS. CALL LIGHT IN REACH.
--- NOTE | 2019-08-30 04:34 | NUR ---
PT. RESTING QUIETLY WITH EYES CLOSED. RESPIRATIONS EVEN. NO S/S OF DISTRESS. CALL LIGHT IN REACH.
--- NOTE | 2019-08-30 05:46 | NUR ---
PT. AWAKE AND SITTING IN WHEELCHAIR. DENIES ANY NEEDS AT THIS TIME. CALL LIGHT IN REACH.
[2019-08-30 08:00] VITALS: BP 110/44
--- NOTE | 2019-08-30 09:43 | NUR ---
PATIENT DISCHARGING HOME TODAY. [facility] WILL PROVIDE THERAPY AT HOME. NO NEW DME NEEDED AT THIS TIME. DR. HDEZ 09/06/2019 @ 10:40.PATIENT CHOICE FORM FOR HOME HEALTH AND [facility] FORMS SIGNED, COPIES GIVEN TO PATIENT AND FILED IN CHART. PATIENT DECLINES COMPARE DATA FOR HOME HEALTH HE IS ALREADY ESTABLISHED WITH [facility]. DISHCARGE INSTRUCTIONS FAXED TO PCP, HOME HEALTH AND REVIEWED WITH PATIENT.
--- NOTE | 2019-08-30 11:11 | NUR ---
CALM, ALERT, ORIENTED, ANTICIPATING DISCHARGE THIS SHIFT, COMPLIANT WITH MEDS, COOPERATIVE WITH STAFF, DENIES PAIN AND NEEDS, CALL LIGHT AT HAND, INSTRUCTED TO CALL WITH NEEDS.
[2019-08-30] MEDS ORDERED: ACETAMINOPHEN500 M1 PO (11:48)
--- NOTE | 2019-08-30 12:16 | NUR ---
DISCHARGE TEACHING COMPLETED WITH PT VOICING UNDERSTANDING, PRESCRIPTIONS PHONED TO JUDY GUERRIER IN [place], PERSONAL BELONGINGS IN PATIENT'S POSSESSION. DISCHARGED HOME, SELF-CARE, FAMILY HERE TO TRANSPORT HOME.
== END 2019-08-30 12:21 | disposition home health service (06) | DRG 71 ==
LOC: D.REHAB 12:16
PROVIDERS: ADMIT Emergency Medicine; ATTEND Emergency Medicine
DX: G93.41 Metabolic encephalopathy (principal); N39.0 Urinary tract infection, site not specified; I10 Essential (primary) hypertension; E78.5 Hyperlipidemia, unspecified; E11.40 Type 2 diabetes mellitus with diabetic neuropathy, unspecified; M19.90 Unspecified osteoarthritis, unspecified site; Z85.46 Personal history of malignant neoplasm of prostate; W19.XXXD Unspecified fall, subsequent encounter; R53.81 Other malaise; N39.41 Urge incontinence; R53.1 Weakness; D64.9 Anemia, unspecified

== ENCOUNTER → 2020-01-04 19:43 | Outpatient (CLI) | payer MEDICARE, OTHER ==
[2019-08-20 10:35] VITALS: BMI 28.6
[~2020-01-04 19:43] MED LIST changes: +ACETAMINOPHEN500 M1 PO
== END | disposition home or self-care (01) ==
LOC: D.LABREF 19:43
PROVIDERS: ATTEND Family Medicine
DX: Z87.440 Personal history of urinary (tract) infections (principal); R32 Unspecified urinary incontinence; C61 Malignant neoplasm of prostate; E11.42 Type 2 diabetes mellitus with diabetic polyneuropathy

== ENCOUNTER 2020-04-01 21:36 | Emergency (ER) | payer MEDICARE, OTHER ==
[~2020-04-01] VITALS: Ht 177.8 cm; Wt 90.9 kg
[2020-04-01 21:49] VITALS: Ht 177.8 cm; Wt 90.9 kg
[2020-04-01] MEDS ORDERED: FLOMAX0.4 MG PO (21:50)
[2020-04-01 23:16] VITALS: BP 138/90
== END 2020-04-01 23:25 | disposition other institution (70) ==
LOC: D.ER 21:36
DX: R33.9 Retention of urine, unspecified (principal); R39.89 Other symptoms and signs involving the genitourinary system; G62.9 Polyneuropathy, unspecified; I10 Essential (primary) hypertension

== ENCOUNTER 2020-04-25 12:16 | Inpatient (IN) | payer MEDICARE, OTHER ==
[~2020-04-25] VITALS: Ht 177.8 cm; Wt 90.7 kg
[2020-04-25] MEDS ORDERED: CYMBALTA30 MG PO (12:25)
[2020-04-25] MEDS ORDERED: NEURONTIN600 MG PO (12:27)
[2020-04-25] MEDS ORDERED: METOLAZONE5 MG PO (12:28)
[2020-04-25] MEDS ORDERED: MYSOLINE 50 MG50 MG PO (12:28)
[2020-04-25] MEDS ORDERED: MYRBETRIQ50 MG PO (12:28)
[2020-04-25 13:03] LABS: BASOPHILS 0.3 % (0-2); EOSINOPHILS 0.9 % (0-7); HEMATOCRIT 39.2 % (42.0-54.0); HEMOGLOBIN 13.1 g/dL (13.5-17.5); IMMATURE GRANULOCYTES 0.5 % (0-5); LYMPHOCYTES 12.9 % (15-50); MCH 29.2 pg (26.0-34.0); MCHC 33.4 g/dL (31.0-37.0); MCV 87.5 fL (80.0-100.0); MEAN PLATELET VOLUME 9.8 fL (7.4-10.4); MONOCYTES 10.8 % (2-11); NEUTROPHILS 74.6 % (40-80); RBC 4.48 10x6/uL (4.20-6.10); WBC 8.7 10x3/uL (4.8-10.8)
[2020-04-25 13:05] LABS: PLATELET COUNT 189 10x3/uL (130-400)
[2020-04-25 13:12] LABS: APTT 29.2 SECONDS (22.8-39.4); INR 1.02 (0.85-1.17); PROTIME 13.4 SECONDS (11.6-15.0)
[2020-04-25 13:25] LABS: ALBUMIN 3.7 g/dL (3.4-5.0); ALKALINE PHOSPHATASE 93 U/L (30-120); ALT (SGPT) 16 U/L (10-68); BILIRUBIN - TOTAL 0.64 mg/dL (0.2-1.3); CALC OSMOLALITY 260 mosm/kg (275-300); CALCIUM 9.3 mg/dL (8.5-10.1); CARBON DIOXIDE 33.7 mmol/L (21.0-32.0); CHLORIDE - SERUM 91 mmol/L (98-107); CKMB 1.9 U/L (0.0-3.6); CREATINE KINASE 50 UL (21-232); CREATININE - SERUM 0.8 mg/dL (0.6-1.3); GLUCOSE 119 mg/dL (74-106); PROTEIN - SERUM 7.7 g/dL (6.4-8.2); SODIUM 130 mmol/L (136-145); THYROID STIMULATING HORMONE 1.49 uIU/mL (0.36-3.74); TROPONIN-I < 0.017 ng/mL (0.000-0.060); UREA NITROGEN 11 mg/dL (7-18); eGFR NON AFRICAN AMERICAN > 90 mL/min (90-120)
[2020-04-25 13:40] LABS: POTASSIUM - SERUM 2.9 mmol/L (3.5-5.1)
--- NOTE | 2020-04-25 14:52 | NUR ---
REPLACED CURRENT INDWELLING CATHETER WITH FRESH CATHETER AT THIS TIME. PT TOLERATED WELL.
--- NOTE | 2020-04-25 14:53 | NUR ---
COVID SWAB TO LAB AT THIS TIME FOR INPATIENT SCREENING.
[2020-04-25 15:49] LABS: BILIRUBIN NEGATIVE (NEGATIVE); KETONE NEGATIVE (NEGATIVE); NITRITE NEGATIVE (NEGATIVE); UROBILINOGEN NORMAL mg/dL (< 2)
[2020-04-25 15:51] LABS: BACTERIA MODERATE HPF (NONE SEEN); WHITE CELLS - URINE >50 HPF (0-1)
[2020-04-25 15:59] LABS: UDS - AMPHET NEGATIVE QUAL (NEGATIVE); UDS - BARB NEGATIVE QUAL (NEGATIVE); UDS - BENZO NEGATIVE QUAL (NEGATIVE); UDS - COCAINE NEGATIVE QUAL (NEGATIVE); UDS - OPIATE NEGATIVE QUAL (NEGATIVE); UDS - PCP NEGATIVE QUAL (NEGATIVE); UDS - THC NEGATIVE QUAL (NEGATIVE)
--- NOTE | 2020-04-25 18:05 | NUR ---
REPORT CALLED TO FELICITAS HARRIS AT THIS TIME.
--- NOTE | 2020-04-25 18:27 | NUR ---
MEAL TRAY TO PT. PT EATING.
[2020-04-26] VITALS: BP 128/57
[2020-04-26 00:29] VITALS: BP 122/56
[2020-04-26 04:00] VITALS: BP 100/48
[2020-04-26 06:28] LABS: BASOPHILS 0.1 % (0-2); EOSINOPHILS 1.2 % (0-7); HEMATOCRIT 37.1 % (42.0-54.0); HEMOGLOBIN 12.2 g/dL (13.5-17.5); IMMATURE GRANULOCYTES 0.4 % (0-5); LYMPHOCYTES 13.8 % (15-50); MCH 28.9 pg (26.0-34.0); MCHC 32.9 g/dL (31.0-37.0); MCV 87.9 fL (80.0-100.0); MEAN PLATELET VOLUME 10.1 fL (7.4-10.4); MONOCYTES 11.7 % (2-11); NEUTROPHILS 72.8 % (40-80); PLATELET COUNT 161 10x3/uL (130-400); RBC 4.22 10x6/uL (4.20-6.10); RDW 13.2 % (11.5-14.5); WBC 7.8 10x3/uL (4.8-10.8)
[2020-04-26 07:48] LABS: ALBUMIN 3.1 g/dL (3.4-5.0); ALKALINE PHOSPHATASE 80 U/L (30-120); ALT (SGPT) 17 U/L (10-68); BILIRUBIN - TOTAL 0.26 mg/dL (0.2-1.3); CALC OSMOLALITY 262 mosm/kg (275-300); CALCIUM 8.4 mg/dL (8.5-10.1); CARBON DIOXIDE 28.7 mmol/L (21.0-32.0); CHLORIDE - SERUM 95 mmol/L (98-107); CREATININE - SERUM 0.7 mg/dL (0.6-1.3); GLUCOSE 121 mg/dL (74-106); PROTEIN - SERUM 6.2 g/dL (6.4-8.2); SODIUM 131 mmol/L (136-145); UREA NITROGEN 10 mg/dL (7-18); eGFR NON AFRICAN AMERICAN > 90 mL/min (90-120)
[2020-04-26 09:25] VITALS: BP 118/77
[2020-04-26 12:50] VITALS: Ht 177.8 cm; Wt 90.7 kg
[2020-04-26 13:10] VITALS: BP 105/47
--- NOTE | 2020-04-26 15:28 | NUR ---
OT NOTE: PT REQUIRED MIN A FOR BEDMOB TASKS. PT COMPLETED POSITONING WITH MIN A. [phone] THANK YOU,RUT NOGUEIRA
[2020-04-26 17:48] VITALS: BP 109/67
[2020-04-27 04:00] VITALS: BP 117/50
[2020-04-27 06:41] LABS: BASOPHILS 0.2 % (0-2); HEMOGLOBIN 10.7 g/dL (13.5-17.5); IMMATURE GRANULOCYTES 0.4 % (0-5); MCH 28.7 pg (26.0-34.0); MCHC 32.4 g/dL (31.0-37.0); MCV 88.5 fL (80.0-100.0); MEAN PLATELET VOLUME 10.7 fL (7.4-10.4); MONOCYTES 10.8 % (2-11); NEUTROPHILS 64.6 % (40-80); PLATELET COUNT 147 10x3/uL (130-400); RBC 3.73 10x6/uL (4.20-6.10); RDW 13.5 % (11.5-14.5)
[2020-04-27 06:44] LABS: WBC 5.5 10x3/uL (4.8-10.8)
[2020-04-27 07:12] LABS: ALBUMIN 2.8 g/dL (3.4-5.0); ALKALINE PHOSPHATASE 75 U/L (30-120); ALT (SGPT) 14 U/L (10-68); BILIRUBIN - TOTAL 0.19 mg/dL (0.2-1.3); CALC OSMOLALITY 265 mosm/kg (275-300); CARBON DIOXIDE 29.1 mmol/L (21.0-32.0); CHLORIDE - SERUM 98 mmol/L (98-107); GLUCOSE 113 mg/dL (74-106); MAGNESIUM - SERUM 1.9 mg/dL (1.8-2.4); POTASSIUM - SERUM 3.1 mmol/L (3.5-5.1); PROTEIN - SERUM 5.7 g/dL (6.4-8.2); SODIUM 133 mmol/L (136-145); UREA NITROGEN 9 mg/dL (7-18); eGFR NON AFRICAN AMERICAN 85 mL/min (90-120)
[2020-04-27 07:15] LABS: CREATININE - SERUM 0.9 mg/dL (0.6-1.3)
[2020-04-27 10:43] VITALS: BP 110/49
--- NOTE | 2020-04-27 12:08 | NUR ---
OT NOTE: PT PERFORMED BED MOB WITH SPV; SIT TO STAND WITH MIN ASSIST; TRANSFERS WITH MIN ASSIST. FEEDING WITH SET UP; SIMPLE GROOMING WITH SET UP; UE DRESSING WITH SET UP SLICK DORADO, OTR/L [phone]
[2020-04-27 13:03] VITALS: BP 109/53
[2020-04-27 17:22] VITALS: BP 108/40
[2020-04-27 21:08] VITALS: BP 118/54
--- NOTE | 2020-04-28 00:36 | NUR ---
RECEIVED ORDER FOR BENADRYL 12.5MG IVP X1 NOW FOR ANXIETY
[2020-04-28 01:14] VITALS: BP 122/47
[2020-04-28 05:47] LABS: BASOPHILS 0.3 % (0-2); EOSINOPHILS 1.7 % (0-7); HEMATOCRIT 32.6 % (42.0-54.0); HEMOGLOBIN 10.5 g/dL (13.5-17.5); IMMATURE GRANULOCYTES 0.5 % (0-5); LYMPHOCYTES 21.8 % (15-50); MCH 28.8 pg (26.0-34.0); MCHC 32.2 g/dL (31.0-37.0); MCV 89.6 fL (80.0-100.0); MEAN PLATELET VOLUME 10.6 fL (7.4-10.4); MONOCYTES 12.6 % (2-11); NEUTROPHILS 63.1 % (40-80); PLATELET COUNT 128 10x3/uL (130-400); RBC 3.64 10x6/uL (4.20-6.10); RDW 13.6 % (11.5-14.5)
[2020-04-28 05:57] VITALS: BP 123/51
[2020-04-28 06:18] LABS: ALBUMIN 2.7 g/dL (3.4-5.0); ALKALINE PHOSPHATASE 74 U/L (30-120); ALT (SGPT) 13 U/L (10-68); BILIRUBIN - TOTAL 0.23 mg/dL (0.2-1.3); CALC OSMOLALITY 267 mosm/kg (275-300); CALCIUM 7.9 mg/dL (8.5-10.1); CARBON DIOXIDE 29.4 mmol/L (21.0-32.0); CHLORIDE - SERUM 100 mmol/L (98-107); CREATININE - SERUM 0.9 mg/dL (0.6-1.3); GLUCOSE 106 mg/dL (74-106); MAGNESIUM - SERUM 1.7 mg/dL (1.8-2.4); POTASSIUM - SERUM 3.4 mmol/L (3.5-5.1); PROTEIN - SERUM 5.9 g/dL (6.4-8.2); SODIUM 134 mmol/L (136-145); eGFR NON AFRICAN AMERICAN 85 mL/min (90-120)
[2020-04-28 06:19] LABS: UREA NITROGEN 12 mg/dL (7-18)
--- NOTE | 2020-04-28 09:01 | NUR ---
RESTING IN BED, NO DISTRESS NOTED, IV INFUSING, BED ALARM IN PLACE, UP WITH PT TODAY
[2020-04-28 09:27] VITALS: BP 138/58
[2020-04-28 18:06] VITALS: BP 115/52
[2020-04-28 20:00] VITALS: BP 104/47
[2020-04-28 23:58] VITALS: BP 113/48
[2020-04-29 04:00] VITALS: BP 118/51
[2020-04-29 06:12] LABS: BASOPHILS 0.1 % (0-2); HEMATOCRIT 33.3 % (42.0-54.0); HEMOGLOBIN 10.6 g/dL (13.5-17.5); IMMATURE GRANULOCYTES 0.4 % (0-5); LYMPHOCYTES 16.7 % (15-50); MCH 28.8 pg (26.0-34.0); MCHC 31.8 g/dL (31.0-37.0); MCV 90.5 fL (80.0-100.0); MEAN PLATELET VOLUME 10.2 fL (7.4-10.4); MONOCYTES 14.8 % (2-11); PLATELET COUNT 131 10x3/uL (130-400); RBC 3.68 10x6/uL (4.20-6.10); RDW 13.9 % (11.5-14.5); WBC 7.4 10x3/uL (4.8-10.8)
[2020-04-29 06:43] LABS: ALBUMIN 2.7 g/dL (3.4-5.0); ALKALINE PHOSPHATASE 82 U/L (30-120); BILIRUBIN - TOTAL 0.19 mg/dL (0.2-1.3); CALCIUM 8.2 mg/dL (8.5-10.1); CARBON DIOXIDE 28.9 mmol/L (21.0-32.0); CHLORIDE - SERUM 102 mmol/L (98-107); CREATININE - SERUM 0.9 mg/dL (0.6-1.3); GLUCOSE 107 mg/dL (74-106); POTASSIUM - SERUM 3.9 mmol/L (3.5-5.1); SODIUM 136 mmol/L (136-145); eGFR NON AFRICAN AMERICAN 85 mL/min (90-120)
[2020-04-29 06:44] LABS: UREA NITROGEN 16 mg/dL (7-18)
[2020-04-29 06:45] LABS: ALT (SGPT) 24 U/L (10-68); CALC OSMOLALITY 272 mosm/kg (275-300)
[2020-04-29 08:00] VITALS: BP 118/52
--- NOTE | 2020-04-29 08:17 | NUR ---
RESTING IN BED, NO DISTRESS NOTED, IV INFUSING, TAKING PO MEDS WITH EASE, CONT TO MONITOR STABILITY WHEN UP
[2020-04-29 12:16] VITALS: BP 162/54
[2020-04-29 15:00] VITALS: BP 114/54
[2020-04-29 20:00] VITALS: BP 107/50
[2020-04-30] VITALS: BP 127/54
[2020-04-30 04:00] VITALS: BP 123/54
[2020-04-30 05:45] LABS: BASOPHILS 0.1 % (0-2); EOSINOPHILS 4.9 % (0-7); HEMATOCRIT 32.5 % (42.0-54.0); HEMOGLOBIN 10.8 g/dL (13.5-17.5); IMMATURE GRANULOCYTES 0.6 % (0-5); LYMPHOCYTES 18.9 % (15-50); MCH 30.1 pg (26.0-34.0); MCHC 33.2 g/dL (31.0-37.0); MCV 90.5 fL (80.0-100.0); MEAN PLATELET VOLUME 10.6 fL (7.4-10.4); MONOCYTES 12.4 % (2-11); NEUTROPHILS 63.1 % (40-80); PLATELET COUNT 106 10x3/uL (130-400); RBC 3.59 10x6/uL (4.20-6.10); RDW 14.1 % (11.5-14.5); WBC 7.2 10x3/uL (4.8-10.8)
[2020-04-30 06:21] LABS: ALBUMIN 2.8 g/dL (3.4-5.0); ALKALINE PHOSPHATASE 74 U/L (30-120); ALT (SGPT) 20 U/L (10-68); BILIRUBIN - TOTAL 0.32 mg/dL (0.2-1.3); CALC OSMOLALITY 278 mosm/kg (275-300); CALCIUM 8.4 mg/dL (8.5-10.1); CARBON DIOXIDE 27.9 mmol/L (21.0-32.0); CHLORIDE - SERUM 104 mmol/L (98-107); CREATININE - SERUM 0.7 mg/dL (0.6-1.3); GLUCOSE 108 mg/dL (74-106); POTASSIUM - SERUM 4.2 mmol/L (3.5-5.1); PROTEIN - SERUM 6.1 g/dL (6.4-8.2); SODIUM 139 mmol/L (136-145); UREA NITROGEN 13 mg/dL (7-18); eGFR NON AFRICAN AMERICAN > 90 mL/min (90-120)
[2020-04-30 08:13] VITALS: BP 132/59
--- NOTE | 2020-04-30 09:15 | NUR ---
ASSESSMENT PER FLOW SHEET. PATIENT IS WITHOUT DISTRESS.FALL PREVENTION WITH MILLY. MONITOR FOR NEEDS.CALL LIGHT IN REACH
--- NOTE | 2020-04-30 14:19 | NUR ---
OT NOTE: PT DOING BETTER.. ABLE TO AMB TO BATHROOM WITH CANE AND CGA; MIN ASSIST WITH HYGIENE; REQUIRES MOD ASSIST FOR LE DRESSING. SIMPLE GROOMING TASKS AND FEEDING WITH SET UP. AMB AROUND ROOM WITH CANE AND CGA; AMB GREATER THAN 200 FT IN HALLWAY WITHOUT REST BREAK OR LOB WITH CGA. TRANSFERRED TO CHAIR WITH CGA. WANTED TO STAY UP IN CHAIR FOR A WHILE. INSTRUCTED TO USE CALL LIGHT TO GET BACK TO BED. SLICK DORADO, OTR/L [phone]
--- NOTE | 2020-04-30 14:45 | NUR ---
OT NOTE: PT COMPLETED SUPINE TO SIT WITH CGA. PT COMPLETED EOB SITTING WITH CGA. PT COMPLETED SIT TO STAND WITH CGA. PT COMPLETED BUE AROM AXS. [phone] THANK YOU,RUT NOGUEIRA
--- NOTE | 2020-04-30 14:49 | MORECARE ---
CASE MANAGEMENT DISCHARGE SUMMARY PATIENT: DACIA MA UNIT: [id number] ADM DATE: 04/25/20 AGE: 84 : 36 SEX: M ROOM/BED: D.2211 AUTHOR: RICARDO JULIEN PHYSICIAN: REFERRING PHYSICIAN: TAN HOFFMANN DO DATE OF SERVICE: 04/30/20 Discharge Plan Patient Name: DACIA MA [facility] [facility] 1935 Planned Disposition: Home Anticipated Discharge Date: Discharge Date: Expected LOS: Initial Reviewer: [email or web address] Initial Review Date: 04/25/2020 Generated: 04/30/20 3:48 pm DCPIA - Discharge Planning Initial Assessment Updated by [email or web address]: Reyna Ignacio on 04/30/20 2:46 pm * Is the patient Alert and Oriented? Yes * How many steps to enter\exit or inside your home? * [facility] * [facility] * Preadmission Environment Home Alone * ADLs Independent * Equipment Cane Rolling Walker Walker * List name and contact numbers for known caregivers / representatives who currently or will assist patient after discharge: LATONYA SHULTZ * Verbal permission to speak to the caregivers and representatives has been obtained from the patient. N/A * Community resources currently utilized Home Health * Please name any agencies selected above. [facility] * Additional services required to return to the preadmission environment? No * Can the patient safely return to the preadmission environment? Yes * Has this patient been hospitalized within the prior 30 days at any hospital? No External Providers External Provider: [facility] Next Contact Date: Service Request Date: Service Type: Resolution: Reviewer: Comments: Patient Name: DACIA MA Page [id number] at 1449 All edits/amendments must be made on the electronic document DICTATION DATE: 04/30/201448 FINE PATCHER: MANOJ 04/30/20 144 RPT#: [id number] DC DATE: STATUS: ADM IN [facility] [address] [place] [address] END OF REPORT
--- NOTE | 2020-04-30 14:59 | MORECARE ---
CASE MANAGEMENT DISCHARGE SUMMARY PATIENT: DACIA MA UNIT: [id number] ADM DATE: 04/25/20 AGE: 84 : 36 SEX: M ROOM/BED: D.2211 AUTHOR: RICARDO JULIEN PHYSICIAN: REFERRING PHYSICIAN: TAN HOFFMANN DO DATE OF SERVICE: 04/30/20 Discharge Plan Patient Name: DACIA MA [facility]:[place] : 1935 Planned Disposition: Home Anticipated Discharge Date: Discharge Date: Expected LOS: Initial Reviewer: [email or web address] Initial Review Date: 04/25/2020 Generated: 04/30/20 3:58 pm Comments DCP- Discharge Planning Updated by [email or web address]: Reyna Ignacio on 04/30/20 1:[address] Patient Name: DACIA MA Admission Status: ER Accout number: [id number] Admission Date: 04-25-2020 : 1935 Admission Diagnosis:URINARY TRACT INFECTION, SITE NOT SPECIFIED Attending: TAN HOFFMANN Current LOS: 5 Anticipated DC Date: Planned Disposition: Home Primary Insurance: MEDICARE A & B Discharge Planning Comments: CM met with patient to complete initial dc planning assessment. CM educated patient on the CM role and verbal consent given by patient to complete assessment. Patient lives at home by himself where he states he is independent. He did say that he falls all the time. He is current with [facility] and I spoke with [facility] and she thinks that he needs rehab. Patient stated that a friend ( Latonya Shultz) will be his fleet driver home. CM discussed availability of home health, rehab services, and medical equipment. He has a walker, can, and wheeled walker. I have sent a referral to [facility] for inpatient rehab. [facility] served and signed along with [facility] for [facility] and [facility]. Patient denied known discharge needs at this time. CM will continue to follow and will assist as needed with dc plans/needs. Film Casting Operator: Reyna Ignacio DCPIA - Discharge Planning Initial Assessment Updated by [email or web address]: Reyna Ignacio on 04/30/20 2:46 pm * Is the patient Alert and Oriented? Yes * How many steps to enter\exit or inside your home? * P[facility]ULL[facility] * [facility] [address] [facility] * Preadmission Environment Home Alone * ADLs Independent * Equipment Cane Rolling Walker Walker * List name and contact numbers for known caregivers / representatives who currently or will assist patient after discharge: LATONYA SHULTZ * Verbal permission to speak to the caregivers and representatives has been obtained from the patient. N/A * Community resources currently utilized Home Health * Please name any agencies selected above. [facility] * Additional services required to return to the preadmission environment? No * Can the patient safely return to the preadmission environment? Yes * Has this patient been hospitalized within the prior 30 days at any hospital? No Coverage Notice Reviewer: [email or web address] Ramos Ignacio Notice Issued Date-Time: 04/30/2020 13:50 Notice Type: IM Discharge Notice Notice Delivered To: Patient Relationship to Patient: Annealing Furnace Tender Name: Delivery Method: HAND - Hand Delivered Fay Days: Prior Verbal Notification: Recipient Understood Notice: Yes Recipient Signature: Yes Med Rec Note Co-signed by Attending: Coverage Notice Comment: rosalina for cathy and teresa guo Reviewer: [email or web address] Ignacio Notice Issued Date-Time: 04/30/2020 13:50 Notice Type: Patient Choice Letter Notice Delivered To: Patient Relationship to Patient: Annealing Furnace Tender Name: Delivery Method: HAND - Hand Delivered Fay Days: Prior Verbal Notification: Recipient Understood Notice: Yes Recipient Signature: Yes Med Rec Note Co-signed by Attending: Coverage Notice Comment: rosalina with cathy and teresa guo Last DP export: 04/30/20 1:49 p Patient Name: DACIA MA Page [phone] at 1459 All edits/amendments must be made on the electronic document DICTATION DATE: 04/30/208 MUSIC DEPARTMENT CHAIR: MANOJ 04/30/20 1458 RPT#: [id number] DC DATE: STATUS: ADM IN [facility] [address] [place] [address] END OF REPORT
--- NOTE | 2020-04-30 15:41 | NUR ---
Nutrition Follow-up: CM working on placement for pt. Diet: Regular PO intake: 100% x last 6 meals Last BM: 04/26/20. Wt: 195# (04/26/20) Meds noted: rocephin, zithromax, probiotics. Labs noted: Glu 108(H), Alb 2.8(L) Recommend continue current diet. RD following.
[2020-04-30 16:00] VITALS: BP 128/54
[2020-04-30 20:00] VITALS: BP 126/60
--- NOTE | 2020-04-30 20:45 | NUR ---
REC'D. IN BED EYES CLOSED RESP. DEEP AND EVEN.BED ARMED WILL CONTINUE TO MONITOR FOR ANY CHGES AND FOLLOW CURRENT PLAN OF CARE.
[2020-05-01 04:00] VITALS: BP 134/55
[2020-05-01 06:48] LABS: ALBUMIN 2.8 g/dL (3.4-5.0); ALKALINE PHOSPHATASE 73 U/L (30-120); ALT (SGPT) 19 U/L (10-68); BILIRUBIN - TOTAL 0.35 mg/dL (0.2-1.3); CALC OSMOLALITY 270 mosm/kg (275-300); CALCIUM 8.4 mg/dL (8.5-10.1); CARBON DIOXIDE 26.6 mmol/L (21.0-32.0); CHLORIDE - SERUM 103 mmol/L (98-107); CREATININE - SERUM 0.8 mg/dL (0.6-1.3); GLUCOSE 106 mg/dL (74-106); POTASSIUM - SERUM 4.1 mmol/L (3.5-5.1); PROTEIN - SERUM 6.3 g/dL (6.4-8.2); SODIUM 135 mmol/L (136-145); UREA NITROGEN 14 mg/dL (7-18); eGFR NON AFRICAN AMERICAN > 90 mL/min (90-120)
[2020-05-01 06:55] LABS: BASOPHILS 0.1 % (0-2); EOSINOPHILS 5.1 % (0-7); HEMATOCRIT 33.5 % (42.0-54.0); HEMOGLOBIN 10.6 g/dL (13.5-17.5); IMMATURE GRANULOCYTES 0.4 % (0-5); LYMPHOCYTES 16.3 % (15-50); MCH 28.6 pg (26.0-34.0); MCHC 31.6 g/dL (31.0-37.0); MCV 90.5 fL (80.0-100.0); MEAN PLATELET VOLUME 10.5 fL (7.4-10.4); MONOCYTES 12.4 % (2-11); NEUTROPHILS 65.7 % (40-80); PLATELET COUNT 98 10x3/uL (130-400); RDW 14.1 % (11.5-14.5); WBC 7.3 10x3/uL (4.8-10.8)
--- NOTE | 2020-05-01 08:00 | NUR ---
ASSESSMENT PER FLOW SHEET. PATIENT IS WITHOUT DISTRESS.FALL PREVENTION IN PLACE WITH MILLY MAT.
--- NOTE | 2020-05-01 08:39 | MORECARE ---
CASE MANAGEMENT DISCHARGE SUMMARY PATIENT: DACIA MA UNIT: [id number] ADM DATE: 04/25/20 AGE: 84 : 36 SEX: M ROOM/BED: D.2211 AUTHOR: RICARDO JULIEN PHYSICIAN: REFERRING PHYSICIAN: TAN HOFFMANN DO DATE OF SERVICE: 05/01/20 Discharge Plan Patient Name: DACIA MA Facility: [facility] : 1935 Planned Disposition: Home Anticipated Discharge Date: Discharge Date: Expected LOS: Initial Reviewer: [email or web address] Initial Review Date: 04/25/2020 Generated: 05/01/20 9:39 am Comments DCP- Discharge Planning Updated by [id number]: Reyna Ignacio on 04/30/20 1:[address] Patient Name: DACIA MA Admission Status: ER Accout number: [id number] Admission Date: 04-25-2020 : 1935 Admission Diagnosis:URINARY TRACT INFECTION, SITE NOT SPECIFIED Attending: TAN HOFFMANN Current LOS: 5 Anticipated DC Date: Planned Disposition: Home Primary Insurance: MEDICARE A & B Discharge Planning Comments: CM met with patient to complete initial dc planning assessment. CM educated patient on the CM role and verbal consent given by patient to complete assessment. Patient lives at home by himself where he states he is independent. He did say that he falls all the time. He is current with [facility] and I spoke with [facility] and she thinks that he needs rehab. Patient stated that a friend ( Latonya Shultz) will be his lease purchase truck driver home. CM discussed availability of home health, rehab services, and medical equipment. He has a walker, can, and wheeled walker. I have sent a referral to [facility] for inpatient rehab. [facility] served and signed along with [facility] for [facility] and [facility]. Patient denied known discharge needs at this time. CM will continue to follow and will assist as needed with dc plans/needs. Sleeve Setter: Reyna Ignacio DCPIA - Discharge Planning Initial Assessment Updated by [id number]: Reyna Ignacio on 04/30/20 2:46 pm * Is the patient Alert and Oriented? Yes * How many steps to enter\exit or inside your home? * PCP [facility] * Pharmacy [facility] [address] * Preadmission Environment Home Alone * ADLs Independent * Equipment Cane Rolling Walker Walker * List name and contact numbers for known caregivers / representatives who currently or will assist patient after discharge: LATONYA SHULTZ * Verbal permission to speak to the caregivers and representatives has been obtained from the patient. N/A * Community resources currently utilized Home Health * Please name any agencies selected above. [facility] * Additional services required to return to the preadmission environment? No * Can the patient safely return to the preadmission environment? Yes * Has this patient been hospitalized within the prior 30 days at any hospital? No External Providers External Provider: [facility] Next Contact Date: Service Request Date: Service Type: Resolution: Reviewer: Comments: Coverage Notice Reviewer: [id number] Ramos Ignacio Notice Issued Date-Time: 04/30/2020 13:50 Notice Type: IM Discharge Notice Notice Delivered To: Patient Relationship to Patient: Permanent Mold Supervisor Name: Delivery Method: HAND - Hand Delivered Fay Days: Prior Verbal Notification: Recipient Understood Notice: Yes Recipient Signature: Yes Med Rec Note Co-signed by Attending: Coverage Notice Comment: [facility] Reviewer: [id number] Ramos Ignacio Notice Issued Date-Time: 04/30/2020 13:50 Notice Type: Patient Choice Letter Notice Delivered To: Patient Relationship to Patient: Permanent Mold Supervisor Name: Delivery Method: HAND - Hand Delivered Fay Days: Prior Verbal Notification: Recipient Understood Notice: Yes Recipient Signature: Yes Med Rec Note Co-signed by Attending: Coverage Notice Comment: rosalina with [facility] Last DP export: 04/30/20 1:59 p Patient Name: DACIA MA Page [id number] at 0839 All edits/amendments must be made on the electronic document DICTATION DATE: 05/01/20838 DATA WAREHOUSING MANAGER: MANOJ 05/01/20838 RPT#: [id number] DC DATE: STATUS: ADM IN [facility] [address] [place] [address] END OF REPORT
--- NOTE | 2020-05-01 08:47 | MORECARE ---
CASE MANAGEMENT DISCHARGE SUMMARY PATIENT: DACIA MA UNIT: [id number] ADM DATE: 04/25/20 AGE: 84 : 36 SEX: M ROOM/BED: D.2211 AUTHOR: RICARDO JULIEN PHYSICIAN: REFERRING PHYSICIAN: TAN HOFFMANN DO DATE OF SERVICE: 05/01/20 Discharge Plan Patient Name: DACIA MA Facility: [facility]:[place] : 1935 Planned Disposition: Home Anticipated Discharge Date: Discharge Date: Expected LOS: Initial Reviewer: [email or web address] Initial Review Date: 04/25/2020 Generated: 05/01/20 9:46 am Comments DCP- Discharge Planning Updated by [email or web address]: Reyna Ignacio on 05/01/20 7:[address] I SPOKE WITH PATIENT ABOUT [facility] AND THE PATIENT BEING TOO HIGH LEVEL. I ASKED THE PATIENT ABOUT [facility] & HE SAID THAT HE WAS SUPPOSE TO MOVE THERE. I CALLED SLICK AT [facility] AND THEY ARE FULL FOR SKILLED BEDS. I CALLED SONYA AT [facility] AND LEFT A MESSAGE FOR HER TO CALL ME BACK. IN THE INTERIM I CALLED [facility] TO SEE IF THEY HAD ROOMS FOR SKILLED. I SPOKE WITH DEVIN AT [facility] AND SHE STATED THAT THEY DID HAVE ROOM. I SENT THE REFERRAL OVER TO HER. CM WILL CONTINUE TO FOLLOW AND ASSIST NEEDED DCP- Discharge Planning Updated by [id number]: Reyna Ignacio on 04/30/20 1:[address] Patient Name: DACIA MA Admission Status: ER Accout number: [id number] Admission Date: 04-25-2020 : 1935 Admission Diagnosis:URINARY TRACT INFECTION, SITE NOT SPECIFIED Attending: TAN HOFFMANN Current LOS: 5 Anticipated DC Date: Planned Disposition: Home Primary Insurance: MEDICARE A & B Discharge Planning Comments: CM met with patient to complete initial dc planning assessment. CM educated patient on the CM role and verbal consent given by patient to complete assessment. Patient lives at home by himself where he states he is independent. He did say that he falls all the time. He is current with [facility] and I spoke with [facility] and she thinks that he needs rehab. 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 CM discussed availability of home health, rehab services, and medical equipment. He has a walker, can, and wheeled walker. I have sent a referral to [facility] for inpatient rehab. [facility] served and signed along with ROSALINA for [facility]. Patient denied known discharge needs at this time. CM will continue to follow and will assist as needed with dc plans/needs. Senior Talent Acquisition Specialist: Reyna Ignacio DCPIA - Discharge Planning Initial Assessment Updated by [id number]: Reyna Ignacio on 04/30/20 2:46 pm * Is the patient Alert and Oriented? Yes * How many steps to enter\exit or inside your home? * PCP [facility] * Pharmacy [facility] [address] * Preadmission Environment Home Alone * ADLs Independent * Equipment Cane Rolling Walker Walker * List name and contact numbers for known caregivers / representatives who currently or will assist patient after discharge: LATONYA SHULTZ * Verbal permission to speak to the caregivers and representatives has been obtained from the patient. N/A * Community resources currently utilized Home Health * Please name any agencies selected above. [facility] * Additional services required to return to the preadmission environment? No * Can the patient safely return to the preadmission environment? Yes * Has this patient been hospitalized within the prior 30 days at any hospital? No Coverage Notice Reviewer: [id number] Ramos Ignacio Notice Issued Date-Time: 04/30/2020 13:50 Notice Type: IM Discharge Notice Notice Delivered To: Patient Relationship to Patient: Community Center Director Name: Delivery Method: HAND - Hand Delivered Fay Days: Prior Verbal Notification: Recipient Understood Notice: Yes Recipient Signature: Yes Med Rec Note Co-signed by Attending: Coverage Notice Comment: [facility] Reviewer: [id number] Ramos Ignacio Notice Issued Date-Time: 04/30/2020 13:50 Notice Type: Patient Choice Letter Notice Delivered To: Patient Relationship to Patient: Community Center Director Name: Delivery Method: HAND - Hand Delivered Fay Days: Prior Verbal Notification: Recipient Understood Notice: Yes Recipient Signature: Yes Med Rec Note Co-signed by Attending: Coverage Notice Comment: ro[facility] with [facility] Last DP export: 05/01/20 7:39 a Patient Name: DACIA AM Page 18066 at 0847 All edits/amendments must be made on the electronic document DICTATION DATE: 05/01/20845 PIANO AND ORGAN REFINISHER: MANOJ 05/01/20845 RPT#: [id number] DC DATE: STATUS: ADM IN [facility] [address] [place] [address] END OF REPORT
[2020-05-01 08:58] VITALS: BP 122/58
--- NOTE | 2020-05-01 09:38 | NUR ---
Wound care consult: Decreased Mobility Pt is up with PT walking with assistance of cane. Recommend continue to monitor for any skin breakdown and reinforce importance of changing positions while in bed or up in chair.
[2020-05-01] MEDS ORDERED: AZITHROMYCIN500 MG PO (10:23)
[2020-05-01] MEDS ORDERED: OMNICEF300 MG PO (10:24)
--- NOTE | 2020-05-01 11:00 | MORECARE ---
CASE MANAGEMENT DISCHARGE SUMMARY PATIENT: DACIA MA UNIT: [id number] ADM DATE: 04/25/20 AGE: 84 : 36 SEX: M ROOM/BED: D.2211 AUTHOR: RICARDO JULIEN PHYSICIAN: REFERRING PHYSICIAN: TAN HOFFMANN DO DATE OF SERVICE: 05/01/20 Discharge Plan Patient Name: DACIA MA Facility: [facility]:[place] : 1935 Planned Disposition: Home Anticipated Discharge Date: Discharge Date: Expected LOS: Initial Reviewer: [email or web address] Initial Review Date: 04/25/2020 Generated: 05/01/20 11:59 am Comments DCP- Discharge Planning Updated by [email or web address]: Reyna Ignacio on 05/01/20 9:[address] PATIENT HAS BEEN ACCEPTED TO [facility] TO A SKILLED BED WITH THE PLAN TO DC TO [facility] WHEN HE IS DONE WITH SKILLED. I SPOKE WITH HIS SON, [facility] WILL PICK HIM UP AT 1330 TODAY. CM TO FOLLOW AND ASSIST NEEDED DCP- Discharge Planning Updated by [id number]: Reyna Ignacio on 05/01/20 7:[address] I SPOKE WITH PATIENT ABOUT [facility] AND THE PATIENT BEING TOO HIGH LEVEL. I ASKED THE PATIENT ABOUT [facility] & HE SAID THAT HE WAS SUPPOSE TO MOVE THERE. I CALLED SLICK AT [facility] AND THEY ARE FULL FOR SKILLED BEDS. I CALLED SONYA AT [facility] AND LEFT A MESSAGE FOR HER TO CALL ME BACK. IN THE INTERIM I CALLED [facility] TO SEE IF THEY HAD ROOMS FOR SKILLED. I SPOKE WITH DEVIN AT [facility] AND SHE STATED THAT THEY DID HAVE ROOM. I SENT THE REFERRAL OVER TO HER. CM WILL CONTINUE TO FOLLOW AND ASSIST NEEDED DCP- Discharge Planning Updated by [id number]: Reyna Ignacio on 04/30/20 1:[address] Patient Name: DACIA MA Admission Status: ER Accout number: [id number] Admission Date: 04-25-2020 : 1935 Admission Diagnosis:URINARY TRACT INFECTION, SITE NOT SPECIFIED Attending: TAN HOFFMANN Current LOS: 5 Anticipated DC Date: Planned Disposition: Home Primary Insurance: MEDICARE A & B Discharge Planning Comments: CM met with patient to complete initial dc planning assessment. CM educated patient on the CM role and verbal consent given by patient to complete assessment. Patient lives at home by himself where he states he is independent. He did say that he falls all the time. He is current with [facility] and I spoke with David and she thinks that he needs rehab. 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 CM discussed availability of home health, rehab services, and medical equipment. He has a walker, can, and wheeled walker. I have sent a referral to [facility] for inpatient rehab. [facility] served and signed along with ROS[facility]. Patient denied known discharge needs at this time. CM will continue to follow and will assist as needed with dc plans/needs. Satellite Specialist: Reyna Ignacio DCPIA - Discharge Planning Initial Assessment Updated by [email or web address]: Reyna Ignacio on 04/30/20 2:46 pm * Is the patient Alert and Oriented? Yes * How many steps to enter\exit or inside your home? * PCP [facility] * Pharmacy [facility] [address] * Preadmission Environment Home Alone * ADLs Independent * Equipment Cane Rolling Walker Walker * List name and contact numbers for known caregivers / representatives who currently or will assist patient after discharge: LATONYA SHULTZ * Verbal permission to speak to the caregivers and representatives has been obtained from the patient. N/A * Community resources currently utilized Home Health * Please name any agencies selected above. [facility] * Additional services required to return to the preadmission environment? No * Can the patient safely return to the preadmission environment? Yes * Has this patient been hospitalized within the prior 30 days at any hospital? No Coverage Notice Reviewer: [id number] Ramos Ignacio Notice Issued Date-Time: 04/30/2020 13:50 Notice Type: IM Discharge Notice Notice Delivered To: Patient Relationship to Patient: Client Technical Specialist Name: Delivery Method: HAND - Hand Delivered Fay Days: Prior Verbal Notification: Recipient Understood Notice: Yes Recipient Signature: Yes Med Rec Note Co-signed by Attending: Coverage Notice Comment: [facility] Reviewer: [id number] Ramos Ignacio Notice Issued Date-Time: 04/30/2020 13:50 Notice Type: Patient Choice Letter Notice Delivered To: Patient Relationship to Patient: Client Technical Specialist Name: Delivery Method: HAND - Hand Delivered Fay Days: Prior Verbal Notification: Recipient Understood Notice: Yes Recipient Signature: Yes Med Rec Note Co-signed by Attending: Coverage Notice Comment: ro[facility] with [facility] Last DP export: 05/01/20 7:47 a Patient Name: DACIA MA Page 16458 at 1100 All edits/amendments must be made on the electronic document DICTATION DATE: 05/01/20 105 TECHNICAL SUPPORT CONSULTANT: MANOJ 05/01/20 1059 RPT#: [id number] DC DATE: STATUS: ADM IN [facility] [address] [place] [address] END OF REPORT
[2020-05-01 12:03] VITALS: BP 138/58
[2020-05-01 12:29] LABS: PLATELET ESTIMATE DECREASED
[2020-05-01 12:30] LABS: ROULEAUX OCC
--- NOTE | 2020-05-01 12:40 | NUR ---
IV DCD WITH CATH TIP INATCT. DISCHARGE INSTRUCTIONS,STATES UNDERSTANDING. WAITING ON RIDE TO [facility]
--- NOTE | 2020-05-01 13:03 | NUR ---
REPORT TO [facility],SPOKE WITH MARSHALL.
--- NOTE | 2020-05-01 14:36 | NUR ---
LEFT UNIT VIA WHEELCHAIR FOR TRANSPORT TO [facility]
--- NOTE | 2020-05-01 15:11 | NUR ---
OT NOTE: PT DOING WELL; AMB IN ROOM WITH CANE AND CGA. PERFORMED SIMPLE GROOMING WHILE AT SINK WITH SBA. PERFORMING FUNCITONAL TRANSFERS WITH CGA AND [employer]. SLICK DORADO, OTR/L [id number]
--- NOTE | 2020-05-01 17:55 | NUR ---
OT NOTE: PT COMPLETED SIT TO STAND WITH CGA. PT COMPLETED SITTING BALANCE WITH SBA. PT EXHIBITED INCREASED ACTIVITY TOLERANCE. [phone] THANK YOU,RUT NOGUEIRA
== END 2020-05-01 14:37 | DRG 689 ==
LOC: D.ER 12:16 → D.MS 18:06
PROVIDERS: Family Medicine; ADMIT Family Medicine; ATTEND Family Medicine
DX: N39.0 Urinary tract infection, site not specified (principal); G93.41 Metabolic encephalopathy; E87.1 Hypo-osmolality and hyponatremia; D64.9 Anemia, unspecified; E87.6 Hypokalemia; Z91.81 History of falling; N40.0 Benign prostatic hyperplasia without lower urinary tract symptoms; I10 Essential (primary) hypertension; M19.90 Unspecified osteoarthritis, unspecified site; M81.0 Age-related osteoporosis without current pathological fracture; F41.8 Other specified anxiety disorders

== ENCOUNTER 2020-10-01 11:07 | Day surgery (SDC) | payer MEDICARE, OTHER ==
[~2020-10-01] VITALS: Ht 177.8 cm; Wt 95.5 kg
[~2020-10-01 11:07] MED LIST changes: +AZITHROMYCIN500 MG PO; +CYMBALTA30 MG PO; +METOLAZONE5 MG PO; +MYRBETRIQ50 MG PO; +MYSOLINE 50 MG50 MG PO; +OMNICEF300 MG PO
[2020-10-01 11:34] LABS: BASOPHILS 0.3 % (0-2); HEMATOCRIT 39.7 % (42.0-54.0); IMMATURE GRANULOCYTES 0.3 % (0-5); LYMPHOCYTE ABS# 1.16 10x3/uL (1.32-3.57); LYMPHOCYTES 17.8 % (15-50); MCH 29.7 pg (26.0-34.0); MCHC 32.7 g/dL (31.0-37.0); MCV 90.8 fL (80.0-100.0); MEAN PLATELET VOLUME 9.6 fL (7.4-10.4); MONOCYTES 12.4 % (2-11); NEUTROPHIL ABS# 4.26 10x3/uL (1.78-5.38); NEUTROPHILS 65.2 % (40-80); RBC 4.37 10x6/uL (4.20-6.10); RDW 13.6 % (11.5-14.5); WBC 6.5 10x3/uL (4.8-10.8)
[2020-10-01 11:38] LABS: PLATELET COUNT 141 10x3/uL (130-400)
[2020-10-01 11:46] LABS: APTT 29.8 SECONDS (22.8-39.4); INR 1.15 (0.85-1.17); PROTIME 13.6 SECONDS (11.6-15.0)
[2020-10-01 11:53] LABS: ALKALINE PHOSPHATASE 75 U/L (30-120); ALT (SGPT) 25 U/L (10-68); BILIRUBIN - TOTAL 0.52 mg/dL (0.2-1.3); CALC OSMOLALITY 269 mosm/kg (275-300); CALCIUM 8.8 mg/dL (8.5-10.1); CHLORIDE - SERUM 101 mmol/L (98-107); GLUCOSE 100 mg/dL (74-106); POTASSIUM - SERUM 4.3 mmol/L (3.5-5.1); PROTEIN - SERUM 7.4 g/dL (6.4-8.2); SODIUM 135 mmol/L (136-145); UREA NITROGEN 13 mg/dL (7-18); eGFR NON AFRICAN AMERICAN 76 mL/min (90-120)
[2020-10-01 12:45] VITALS: BP 165/72; Ht 177.8 cm; Wt 95.5 kg
--- NOTE | 2020-10-01 19:42 | OP ---
PATIENT NAME: DACIA MA MEDICAL RECORD: [id number] :[birth year] LOCATION:[facility] ADMISSION DATE: SURGEON: FANG DUMONT DO DATE OF OPERATION: 10/01/2020 PROCEDURE: EGD with biopsies. INDICATION FOR PROCEDURE: Abnormal barium swallow, atypical chest pain, dysphagia. SCOPE: Olympus video gastroscope. MEDICATIONS: Propofol 150 mg IV per anesthesia. ESTIMATED BLOOD LOSS: Minimal. COMPLICATIONS: None. FINDINGS: Informed consent was given. The patient was made comfortable with the above medication. After reaching an adequate level of sedation by slow IV push, the patient was placed on his left side. The endoscope was advanced under direct visualization through the mouth to the second portion of the duodenum. The very proximal esophagus was normal. In the mid esophagus, located at approximately 25-30 cm from the incisors, there was evidence of inflammation and a partially obstructive tumor. The obstructed portion begins at approximately 27 cm down to 30 cm. The endoscope was able to traverse the site without any intervention. During that 3 cm stretch, there was involvement of 100% of the lumen and it was narrowed down to approximately 7-9 mm in diameter. Multiple cold forceps biopsies were taken at different levels of this tumor. Approximately 12 biopsies were taken in total. The endoscope was advanced beyond this site into the distal esophagus and down to the GE junction where there was evidence of LA class A reflux-induced esophagitis. Cold forceps biopsies were taken at the squamocolumnar junction to submit for histopathology. Retroflexion within the stomach revealed normal anatomy of the cardia and fundus. In the distal body of the stomach as well as the antrum and prepyloric region, there was some erythema and granularity consistent with gastritis. Cold forceps biopsies were taken to submit for histopathology and to rule out the presence of H. pylori. The duodenum appeared normal to the second portion. The endoscope was withdrawn from the patient. The patient tolerated the procedure well and there were no complications. IMPRESSION: 1. 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 Multiple biopsies were taken with cold forceps. 2. LA class A reflux-induced esophagitis. 3. Gastritis. PLAN AND RECOMMENDATIONS: 1. Discharge home when recovery parameters are met. 2. Follow up biopsy specimen results. 3. Referral to oncology will be made as an urgent referral. 4. Maintain calories with full liquids and protein shakes as needed. 5. If necessary, future interventions endoscopically could include PEG tube placement versus esophageal stent placement. Pending further evaluation and OPERATIVE REPORT [id number] DACIA MA interventions. 6. We will defer to oncology whether surgical intervention is indicated, which will require some staging and further imaging. We will defer imagings to oncology as a PET scan would likely be desired along with a CT scan. TRANSINT:[id number] Voice Confirmation ID: [id number] DOCUMENT ID: [id number] FANG DUMONT DO at 1942 CC: [id number] DICTATION DATE: 10/01/20 1357 EXECUTIVE BUSINESS COACH: 10/01/20 1439 [facility] 10/01/20 [facility] [address] [place] [address]
== END 2020-10-01 15:20 | disposition home or self-care (01) ==
LOC: D.OPS 11:07
PROVIDERS: Anesthesiology; ATTEND Internal Medicine Gastroenterology
DX: R13.10 Dysphagia, unspecified (principal); R07.9 Chest pain, unspecified; K21.00 Gastro-esophageal reflux disease with esophagitis, without bleeding; K29.70 Gastritis, unspecified, without bleeding; C15.9 Malignant neoplasm of esophagus, unspecified